=== PATIENT | male | born 1940 | race Caucasian/White ===

== ENCOUNTER 2017-12-08 03:37 | Inpatient (IN) | payer MEDICARE, SELFPAY ==
[2017-12-08] VITALS (20 sets, daily range): BP systolic 119–170; BP diastolic 55–111; PULSE 41–84; RESP 15–27; TEMP 36.6–37.2; O2SAT 92–96; BMI 30.5; BMI 30.6; BMI 29.5
--- NOTE | 2017-12-08 03:51 | EKG12_ITS ---
Test Reason : CP Blood Pressure : / mmHG Vent. Rate : 058 BPM Atrial Rate : 052 BPM P-R Int : 000 ms QRS Dur : 136 ms QT Int : 476 ms P-R-T Axes : 000 008 215 degrees QTc Int : 467 ms Atrial fibrillation with slow ventricular response Non-specific intra-ventricular conduction block T wave abnormality, consider lateral ischemia Abnormal ECG Confirmed by JUAN NOWAK, LEONARD ([id number]), sound editor MISAEL HOPE ([id number]) on 12/10/2017 3:19:25 PM Referred By: RANDOLPH Confirmed By:LEONARD MARTINEZ MD
--- NOTE | 2017-12-08 04:00 | RAD_ITS ---
STUDY: X-RAY CHEST REASON FOR EXAM: Male, 77 years old. Chest pain TECHNIQUE: Frontal and lateral views of the chest. COMPARISON: None. FINDINGS: Cardiomegaly. Status post median sternotomy. Calcified aorta. Vascular congestion. No pneumothorax. No pleural effusion. Basilar atelectasis/infiltrate. No focal consolidation. Peribronchial thickening could represent bronchitis. Pulmonary calcified nodule. Likely granuloma. There are diffuse degenerative changes of the visualized thoracic spine. Osteopenia. There is degenerative osteoarthritis of the bilateral shoulders. There is no demonstrated abnormality of the visualized soft tissue structures of the upper abdomen. RAD/Chest PA and Lateral IMPRESSION: Cardiomegaly. Pulmonary vascular congestion/edema. No focal consolidation. Basilar atelectasis/infiltrate. There is areas of peribronchial thickening. This could represent bronchitis in the appropriate clinical setting. Electronically Signed: Ruben Patiño, at 4:18 EDT Tel , Service support ,
[2017-12-08 04:05] LABS: Absolute Lymphocyte Count 2.78 X10^3/ul (0.83-4.51); Basophil# 0.07 X10^3/uL; Basophil% 0.8 % (0-1); Eosinophil# 0.36 X10^3/uL; Eosinophils% 4.2 % (0-5); Hematocrit 41.3 % (40-54); Hemoglobin 14.2 g/dl (13.0-16.5); Lymphocyte # 2.78 X10^3/ul (4.0); Lymphocyte % 32.7 % (19-41); Mean Corp Hgb Conc 34.4 g/gl (32-36); Mean Corpuscular Hgb 30.8 pg (27.0-32.0); Mean Corpuscular Volume 89.6 fL (80-94); Mean Platelet Vol. 10.8 fl (6.2-12.0); Monocyte# 1.26 X10^3/uL; Monocyte% 14.8 % (0-10); Neutrophil # 4.01 X10^3/uL (2.7-7.7); Neutrophil % 47.3 % (47-70); POSITIVE COUNT NO; POSITIVE DIFFERENTIAL NO; POSITIVE MORPHOLOGY NO; Platelet Count 257 K/mm3 (150-450); RBC Distribution Width CV 13.8 % (11.6-14.6); RBC Distribution Width SD 44.6 fl (35.1-43.9); Red Blood Count 4.61 M/mm3 (4.6-6.2); White Blood Count 8.5 K/mm3 (4.4-11.0)
[2017-12-08] MEDS: Ipratropium/Albuterol Sulfate 3 ML AMPUL.NEB INHALATION (04:09)
[2017-12-08] MEDS: Aspirin 81 MG TAB.CHEW 324 MG PO (04:09)
--- NOTE | 2017-12-08 04:19 | ED.RN ---
lab called to report troponin of 0.777, dr. york notified.
[2017-12-08 04:21] LABS: Anion Gap 6 (5-15); BUN 24 mg/dL (7-18); BUN/Creat Ratio 13.5 RATIO (10-20); Calcium,Total 8.4 mg/dL (8.5-10.1); Chloride 101 mmol/L (98-107); Creatinine, Serum 1.78 mg/dL (0.70-1.30); EST Glomerular Filtration Rate 40 mL/min (>60); Est Glom Filt Rate - Afr Amer 48 mL/min (>60); Estimated Creatinine Clearance 32.49 ml/min; Glucose 288 mg/dL (74-106); Potassium 4.7 mmol/L (3.5-5.1); Sodium Level 135 mmol/L (136-145)
[2017-12-08 04:22] LABS: International Normalized Ratio 1.9; Prothrombin Time (Protime)PT. 22.2 SECONDS (11.7-14.9)
[2017-12-08 04:35] LABS: BNP,B-Type NATRIURETIC PEPTIDE 923.7 pg/mL (0-100)
--- NOTE | 2017-12-08 04:38 | ED.RN ---
re-assessed pt and pt is pain free at this time.
[2017-12-08] MEDS: Furosemide 20 MG/2 ML VIAL IV (04:41)
--- NOTE | 2017-12-08 04:43 | ED.VISSUMM ---
- ER Visit Summary Date of Service: 12/08/17 Chief Complaint: [] Chest pain History of Present Illness: The patient is a 77 M complaining of chest pain started 30 minutes ago at rest. He was laying down trying to sleep and could not. He has a heaviness in his substernal region. Current severity is mild. He has been having some coughing and hard breathing over the last week. Last couple days he has had sinus congestion. He is on Coumadin for history of A. fib. Has a history of coronary artery disease status post CABG 20 years ago. He does not have a barrel filler. He takes a full aspirin and Coumadin daily. He has diabetes as well. Physical Examination: Vital signs reviewed General: Well-nourished well-developed Head: Normocephalic atraumatic Eyes: Pupils equal round and reactive to light extraocular movements intact ENT: TMs clear no hemotympanum no trauma Neck: Nontender full range of motion Cardiovascular: Irregular rhythm with normal rate no murmurs normal S1-S2 Respiratory: Mild tachypnea. Mild wheezing in the bases bilateral no rales or rhonchi. Chest nontender Abdomen: Soft nontender nondistended normal bowel sounds no masses Back: Nontender no CVA tenderness Extremities: Nontender active range of motion ?4 extremities no trauma Skin: Normal color no trauma Neuro alert oriented cranial nerves II through XII intact normal strength sensation reflexes Test Results: [] Emergency Department Course and Treatment: [] EKG shows atrial fibrillation with a rate of 58. ST depression V5 V6 T wave inversion in lead I. No STEMI. CBC normal. Chemistries normal except sodium 135 creatinine 1.78 glucose 288. Patient has chronic diabetes with hyperglycemia tonight. Troponin 0 0.77. This is elevated from previous normal in the past. BNP 923. Chest x-ray shows mild vascular congestion with peribronchial thickening. INR is 1.9. Patient given oral aspirin placed on nasal cannula oxygen. Given sublingual nitroglycerin with complete resolution of his chest discomfort. Given IV Lasix 20 mg IV for his mild CHF. Blood pressure down to 145/70 after nitro. Discussed with the barrel filler Dr. Melendez because the hospitalist. Given the fact that the patient's INR is 1.9 we will hold off on using heparin per cardiology if the patient is pain-free which he is. Be admitted and seen by cardiology on the floors. At this time I think he had a acute bronchitis that likely caused him to have some cardiac complications Treatment Plan: [] Disposition: [] Impression: [] Non-ST elevation myocardial infarction CHF secondary to non-ST elevation myocardial infarction Chronic renal insufficiency Acute bronchitis Diabetes with hyperglycemia Critical care time 74 minutes This note was generated with [employer] dictation software. It may contain incorrect words, spelling, and punctuation that were not noted in review of the chart prior to signing ED Disposition - Plan for ED Patient: Chief Complaint: Chest Pain Referrals: Kyle Silva Chi, MD [Primary Care Provider] -
--- NOTE | 2017-12-08 04:46 | ED.DCSUM_ITS ---
- ER Visit Summary Date of Service: 12/08/17 Chief Complaint: [] Chest pain History of Present Illness: The patient is a 77 M complaining of chest pain started 30 minutes ago at rest. He was laying down trying to sleep and could not. He has a heaviness in his substernal region. Current severity is mild. He has been having some coughing and hard breathing over the last week. Last couple days he has had sinus congestion. He is on Coumadin for history of A. fib. Has a history of coronary artery disease status post CABG 20 years ago. He does not have a representative. He takes a full aspirin and Coumadin daily. He has diabetes as well. Physical Examination: Vital signs reviewed General: Well-nourished well-developed Head: Normocephalic atraumatic Eyes: Pupils equal round and reactive to light extraocular movements intact ENT: TMs clear no hemotympanum no trauma Neck: Nontender full range of motion Cardiovascular: Irregular rhythm with normal rate no murmurs normal S1-S2 Respiratory: Mild tachypnea. Mild wheezing in the bases bilateral no rales or rhonchi. Chest nontender Abdomen: Soft nontender nondistended normal bowel sounds no masses Back: Nontender no CVA tenderness Extremities: Nontender active range of motion ?4 extremities no trauma Skin: Normal color no trauma Neuro alert oriented cranial nerves II through XII intact normal strength sensation reflexes Test Results: [] Emergency Department Course and Treatment: [] EKG shows atrial fibrillation with a rate of 58. ST depression V5 V6 T wave inversion in lead I. No STEMI. CBC normal. Chemistries normal except sodium 135 creatinine 1.78 glucose 288. Patient has chronic diabetes with hyperglycemia tonight. Troponin 0 0.77. This is elevated from previous normal in the past. BNP 923. Chest x-ray shows mild vascular congestion with peribronchial thickening. INR is 1.9. Patient given oral aspirin placed on nasal cannula oxygen. Given sublingual nitroglycerin with complete resolution of his chest discomfort. Given IV Lasix 20 mg IV for his mild CHF. Blood pressure down to 145/70 after nitro. Discussed with the representative Dr. Melendez because the hospitalist. Given the fact that the patient's INR is 1.9 we will hold off on using heparin per cardiology if the patient is pain-free which he is. Be admitted and seen by cardiology on the floors. At this time I think he had a acute bronchitis that likely caused him to have some cardiac complications Treatment Plan: [] Disposition: [] Impression: [] Non-ST elevation myocardial infarction CHF secondary to non-ST elevation myocardial infarction Chronic renal insufficiency Acute bronchitis Diabetes with hyperglycemia Critical care time 74 minutes This note was generated with [employer] dictation software. It may contain incorrect words, spelling, and punctuation that were not noted in review of the chart prior to signing ED Disposition - Plan for ED Patient: Chief Complaint: Chest Pain Referrals: Kyle Silva Chi, MD [Primary Care Provider] -
--- NOTE | 2017-12-08 04:46 | HP.PCM_ITS ---
Problem List (1) Chest pain Status: Acute History of Present Illness Date of Admission: 12/08/17 Chief Complaint: chest pain The patient is a 77 year old M with past medical history of hypertension, coronary artery disease status post stents and CABG 20 years ago, hyperlipidemia, diabetes mellitus and Afib, on coumadin. He was admitted on 12/08/2017 with a complaint of chest pain which started around 30 minutes prior to his admission. Pain was pressure-like, and radiated to the epigastrium and substernal area, with no aggravating or relieving factors. Chest pain had resolved at time of review in the ED. He also had some associated cough which is nonproductive and shortness of breath over the last week. He denied any orthopnea or dyspnea and denied any lower extremity swelling. In the ED, he was found to have blood pressure of 170/111 and was breathing at 23/min. He was saturating 94% on 3 L of oxygen. Labs were significant for troponin of 0.777 and BNP of 93.7 with creatinine 1.78 and sodium of 135. CBC was unremarkable. Chest x-ray showed cardiomegaly and pulmonary vascular congestion with bibasilar atelectasis versus infiltrate. Also had peribronchial thickening which could represent bronchitis. And pulmonary calcified nodule likely granuloma. He has been admitted to be managed for CHF exacerbation and NSTEMI. [] Past Medical History Past Medical History (Chronic Problems): Chronic Problems Hypothyroidism (Chronic) Afib (Chronic) HTN (hypertension) (Chronic) Hx of CABG (Chronic) DM2 (diabetes mellitus, type 2) (Chronic) CAD (coronary artery disease) (Chronic) Allergies simvastatin Adverse Reaction (Verified 12/08/17 03:41) MUSCLE ACHES PATIENT REPORTED IN ED THAT PATIENT EXPERIENCED MUSCLE PAIN ON SIMVASTATIN Home Medications: Ambulatory Orders Medication Instructions Recorded Atenolol 100 mg PO BID 09/19/13 Levothyroxine 50 mcg PO DAILY 09/19/13 Lisinopril 40 mg PO BID 09/19/13 Vitamin D 2,000 units PO DAILY 09/19/13 Warfarin 4 mg PO DAILY 09/19/13 Aspirin 325 mg PO DAILY@0800 12/08/17 Insulin Aspart [Novolog Flexpen] 15 unit SQ TIDCM 12/08/17 Lantus SoloStar Pen 40 units SQ DAILY 12/08/17 Surgical History: coronary bypass surgery Psychiatric History: No pertinent psych hx Lives: Spouse/ Significant Other Smoking Status: Never smoker Alcohol: None Drugs: None - *Family History Paternal History Items: No pertinent history Review of Systems Constitutional: Denies: Chills, Fever, Night Sweats, Weight Change HEENT: Denies: Head Aches, Sinus Congestion, Sinus Drainage Cardiovascular: Reports: Chest Pain, Chest Pressure. Denies: Chest Tightness, Edema, Heaviness, Light Headedness, Orthopnea, Palpitations, Paroxysmal Noc. Dyspnea, Syncope Respiratory: Reports: Cough, Shortness of Breath, Shortness of breath upon exertion, Wheezing. Denies: Hemoptysis, Pleuritic Pain, Shortness of breath at rest Gastrointestinal: Denies: Abdominal Pain, Diarrhea, Nausea, Vomiting Genitourinary: Denies: Dysuria Musculoskeletal: Denies: Joint Pain, Joint Tenderness Skin: Reports: Dryness Neurological: Denies: Numbness, Tingling, Focal weakness Psychiatric: Denies: Anxiety, Depression, Homicidal Ideations, Suicidal Ideations Hematologic/ Lymphatic: Denies: Easy Bruising, Easy Bleeding VTE Information - Inpt Only VTE Present on Admission: No VTE Mechan Device Prophylaxis: SCD's Patient Problems: Active and Suspected Problems Chest pain (Acute) - Physical Exam General: Alert, Oriented x3, Cooperative, No apparent distress HEENT: Atraumatic, PERRLA, EOMI, Normocephalic Oral: Moist Mucosa Neck: Supple, No JVD, Negative Carotid Bruits Lungs: Diminished, Short of Breath, Wheezes, - - decreased breath sounds bibasally with fine crackles in mid and lower lung [place] Cardiovascular: Normal S1, Normal S2, No murmurs, Irregular Rate - and rhythm Abdomen: Bowel Sounds Present, Soft, Non Tender, Non-Distended, No Hepato- splenomegaly Extremities: No clubbing, No cyanosis, No Calf Tenderness, - - minimal pitting edema in LEs Skin: No rashes, No breakdown Musculoskeletal: No Tenderness to Palpation of Joints or Extremities Lymphatic: No Cervical, Supraclavicular, or Inguinal Adenopathy Neurological: Cranial nerves II-XII grossly intact, Neuro grossly intact, Motor Exam 5/5 strength throughout Psych/Mental Status: Normal Affect, Appropriate, Alert and oriented to time, place, person, mood and affect Vital Signs Temp Pulse Resp BP Pulse Ox 97.9 F 60 25 H 158/93 H 93 10/13/18 03:38 12/08/17 04:28 12/08/17 04:22 12/08/17 04:28 12/08/17 04:22 Oxygen Flow Rate (L/min) 2 Oxygen Delivery Method Nasal Cannula Weight: 195 lb 1.745 oz Body Mass Index (BMI) 30.5 Finger Stick Blood Glucose 27 Laboratory Tests Past 24 Hrs 12/08/17 12/08/17 12/08/17 03:45 03:45 03:45 WBC 8.5 RBC 4.61 Hgb 14.2 Hct 41.3 MCV 89.6 MCH 30.8 MCHC 34.4 RDW 13.8 RDW Differential 44.6 H Plt Count 257 MPV 10.8 Immature Gran % (Auto) 0.200 Neut % (Auto) 47.3 Lymph % (Auto) 32.7 [place] % (Auto) 14.8 H Eos % (Auto) 4.2 Baso % (Auto) 0.8 Absolute Neuts (auto) 4.0 Absolute Lymphs (auto) 2.78 Total Counted Not Reportable PT 22.2 H INR 1.9 Sodium 135 L Potassium 4.7 Chloride 101 Carbon Dioxide 28.0 Anion Gap 6 BUN 24 H Creatinine 1.78 H Estim Creat Clear Calc 32.49 Est GFR (MDRD) Af Amer 48 L Est GFR (MDRD) Non-Af 40 L BUN/Creatinine Ratio 13.5 Glucose 288 H Calcium 8.4 L Troponin I 0.777 H* B-Natriuretic Peptide 12/08/17 03:45 WBC RBC Hgb Hct MCV MCH MCHC RDW RDW Differential Plt Count MPV Immature Gran % (Auto) Neut % (Auto) Lymph % (Auto) [place] % (Auto) Eos % (Auto) Baso % (Auto) Absolute Neuts (auto) Absolute Lymphs (auto) Total Counted PT INR Sodium Potassium Chloride Carbon Dioxide Anion Gap BUN Creatinine Estim Creat Clear Calc Est GFR (MDRD) Af Amer Est GFR (MDRD) Non-Af BUN/Creatinine Ratio Glucose Calcium Troponin I B-Natriuretic Peptide 923.7 H Diagnostic Data Chest X-Ray 12/08/17 04:00 IMPRESSION: Cardiomegaly. Pulmonary vascular congestion/edema. No focal consolidation. Basilar atelectasis/infiltrate. There is areas of peribronchial thickening. This could represent bronchitis in the appropriate clinical setting. Electronically Signed: Ruben Patiño, at 4:18 EDT Tel , Service support , Assessment/Plan All Active Problems Chest pain (Acute) Hypoglycemia (Acute) Acute encephalopathy (Acute) 77-year-old male admitted with history of chest pain which started 30 minutes prior to admission with associated shortness of breath. 1. HFrEF with acute exacerbation * no known history of CHF * 2D echo(2012); EF of 40%, normal LV and RV size. Mild segmental systolic dysfunction, severely enlarged left atrium. RVSP of 25mmHg * admit to PCU with telemetry * BNP was 923 * CXR: pulmonary vascular congestion and cardiomegaly * EKG: Afib with lateral leads T wave inversion * IV lasix 40mg bid * 2D echo * cardiology consult * check TSH 2. NSTEMI * initial troponin is 0.77; will cycle * check lipid panel and A1C * SL nitroglycerin prn; on aspirin 325mg daily * cardiology consult * patient already on coumadin; wont give heparin * 3. Acute hypoxic respiratory failure due to CHF exacerbation * tachypneic, with respiratory rate ~ 25-27 * required 3L of oxygen to maintain saturation of 94% * titrate oxygen to maintain saturation >92% * breathing treatment * 4. Hypertensive urgency * BP is 170/111, and patient is SOB and has chest pain * continue home meds- lisinopril and atenolol * IV hydralazine 10mg q6prn for BP>160/110 * 5. Diabetes mellitus * On Lantus 40 units daily and NovoLog insulin. * Will hold long-acting insulin and start insulin sliding scale as patient is being kept n.p.o. for possible cath by cardiology. * Checks every 6 as patient is n.p.o. * Check A1c * 6. CAD s/p stent x 3 and CABG * CABG and stents done 20 years ago * Does not see a booster operator. On aspirin 325 mg daily * Check lipid panel * 7. Afib * Rate controlled * On atenolol 100 mg twice daily. Does not see a booster operator in A. fib and CAD and managed by his primary care doctor. * On Coumadin 4 mg daily. INR is 1.9. * 8. CKD 3 * Cr is 1.78; baseline ~ 1.6 * will monitor 8. Hyponatremia * Na is 135; likely hypervolemic hypotonic hypernatremia from fluid overload with CHF * will monitor for improvement with diuresis * DVT prophylaxis: on coumadin; SCDs Code status: DNR CCA * Counseled about differences between full code, DNR CCA and DNR CCA. Patient elects to be DNR CCA. Total [id number] time 17 minutes. Code Visit Inpatient E&M: 11955 Init Hosp L3 Procedures: 75520 Advncd Care Plan 30 Min
--- NOTE | 2017-12-08 05:32 | EKG12_ITS ---
Test Reason : ADM EKG Blood Pressure : / mmHG Vent. Rate : 072 BPM Atrial Rate : 079 BPM P-R Int : 000 ms QRS Dur : 136 ms QT Int : 474 ms P-R-T Axes : 000 006 177 degrees QTc Int : 519 ms Atrial fibrillation Non-specific intra-ventricular conduction block Abnormal ECG Confirmed by CUBA NOWAK, JOS ([id number]), web content editor MISAEL HOPE ([id number]) on 12/13/2017 11:41:02 AM Referred By: MANI Confirmed By:JOS BRINK MD
[2017-12-08] MEDS: Insulin Lispro 100 UNIT/ML INSULN.PEN SQ (06:42)
[2017-12-08 07:05] LABS: Bedside Glucose 290 mg/dL (70-110)
[2017-12-08 09:21] LABS: Hemoglobin A1c 9.5 % (4.2-6.3)
[2017-12-08 09:24] LABS: Cholesterol 209 mg/dL (200); High Density Lipoprotein 48 mg/dL; Thyroid Stim Hormone (TSH) 5.78 uIU/mL (0.358-3.74); Triglycerides 99 mg/dL; Very Low Density Lipoprotein 20 mg/dL (5-40)
[2017-12-08] MEDS: Lisinopril 40 MG Tablet PO ×2 (10:10→22:40)
[2017-12-08] MEDS: Furosemide 40 MG/4 ML Vial IV ×2 (10:11→17:14)
[2017-12-08] MEDS: Aspirin 325 MG Tablet PO (10:11)
[2017-12-08] MEDS: Atenolol 100 MG Tablet PO ×2 (10:11→22:40)
[2017-12-08] MEDS: 0.9% NaCl Peripheral Flush Adult/Peds IV ×2 (10:20→17:15)
--- NOTE | 2017-12-08 11:02 | PCM.CONS.C ---
Reason for Consult Date of Consultation: 12/08/17 History of Present Illness: The patient is a 77 year old M past medical history significant for coronary artery disease status post coronary artery bypass graft surgery x4 about 20 years ago. He also has history of diabetes mellitus and chronic renal insufficiency. Patient has been admitted with complaints of chest pain. However the patient says that his primary complaint was dyspnea that started early this morning. Woke him up from sleep. According to him, he felt that the chest discomfort was only with deep breathing. No diaphoresis. No orthopnea. His any ankle edema. Patient denies any recent history of exertional or rest angina. [] Past Medical History Allergies/Adverse Reactions: Allergies simvastatin Adverse Reaction (Verified 12/08/17 03:41) MUSCLE ACHES PATIENT REPORTED IN ED THAT PATIENT EXPERIENCED MUSCLE PAIN ON SIMVASTATIN Home Medications: Ambulatory Orders Medication Instructions Recorded Atenolol 100 mg PO BID 09/19/13 Levothyroxine 50 mcg PO DAILY 09/19/13 Lisinopril 40 mg PO BID 09/19/13 Vitamin D 2,000 units PO DAILY 09/19/13 Warfarin 4 mg PO DAILY 09/19/13 Aspirin 325 mg PO DAILY@0800 12/08/17 Insulin Aspart [Novolog Flexpen] 15 unit SQ TIDCM 12/08/17 Lantus SoloStar Pen 40 units SQ DAILY 12/08/17 Past Medical History (Chronic Problems): Chronic Problems Hypothyroidism (Chronic) Afib (Chronic) HTN (hypertension) (Chronic) Hx of CABG (Chronic) DM2 (diabetes mellitus, type 2) (Chronic) CAD (coronary artery disease) (Chronic) Surgical History: coronary bypass surgery Psychiatric History: No pertinent psych hx - *Family History Paternal History Items: No pertinent history Lives: Spouse/ Significant Other Smoking Status: Never smoker Alcohol: None Drugs: None Review of Systems - Review of Systems General: Denies: Fever, Fatigue, Chills Cardiovascular: Reports: Shortness of Breath at Rest. Denies: Orthopnea, Peripheral Edema Respiratory: Denies: Cough Gastrointestinal: Denies: Abdominal Discomfort, Jaundice, Nausea, Emesis, Melena Neurological: Reports: History of CVA Subjectve: Comfortable. Lying flat in the bed. Objective: Vital Signs Temp Pulse Resp BP Pulse Ox 98.8 F 58 L 16 137/84 H 94 12/08/17 09:50 12/08/17 09:50 12/08/17 09:50 12/08/17 09:50 12/08/17 09:50 Oxygen Flow Rate (L/min) 2 Oxygen Delivery Method Nasal Cannula Weight: 85.6 kg Body Mass Index (BMI) 29.5 Finger Stick Blood Glucose 27 General: Awake, Alert, Oriented x 3, No Acute Distress HEENT: Atraumatic, Normocephalic Neck: - - Mild jugular venous distention Lungs: Clear to auscultation Cardiovascular: Irregular Rhythm, Normal S1, Normal S2 Vascular: No Carotid Bruits Abdomen: Bowel Sounds Present, Soft Extremities: Bilateral Edema +1 Neurological: No Focal Motor or Sensory Deficit Psych/Mental Status: Appropriate 12/08/17 03:45: WBC 8.5, RBC 4.61, Hgb 14.2, Hct 41.3, MCV 89.6, MCH 30.8, MCHC 34.4, RDW 13.8, RDW Differential 44.6 H, Plt Count 257, MPV 10.8, Immature Gran % (Auto) 0.200, Neut % (Auto) 47.3, Lymph % (Auto) 32.7, [place] % (Auto) 14.8 H, Eos % (Auto) 4.2, Baso % (Auto) 0.8, Absolute Neuts (auto) 4.0, Total Counted Not Reportable 12/08/17 03:45: PT 22.2 H, INR 1.9 12/08/17 03:45: Sodium 135 L, Potassium 4.7, Chloride 101, Carbon Dioxide 28.0, Anion Gap 6, BUN 24 H, Creatinine 1.78 H, Est GFR (MDRD) Af Amer 48 L, Est GFR (MDRD) Non-Af 40 L, BUN/Creatinine Ratio 13.5, Glucose 288 H, Calcium 8.4 L, Troponin I 0.777 H* 12/08/17 03:45: B-Natriuretic Peptide 923.7 H 12/08/17 06:49: Troponin I 0.766 H* 12/08/17 06:49: Triglycerides 99, Cholesterol 209 H, LDL Cholesterol 141 H, VLDL Cholesterol 20, HDL Cholesterol 48 12/08/17 06:49: Hemoglobin A1c 9.5 H 12/08/17 09:52: Troponin I 1.220 H* Rhythm: Atrial fibrillation EKG: Atrial fibrillation. Left bundle branch block ECHO: Pending Stress Test: Cardiac Cath: PCI: CT Surgery: Holter monitor: EPS: PPM: CXR: Chest CT Scan: Assessment/Plan 1. Non-ST elevation myocardial infarction. Started on aspirin. Continue. Check 2D echocardiogram to assess LV function. Further treatment options discussed with patient. Invasive management strategy with cardiac catheterization, coronary angiography and possible revascularization versus medical treatment and risk assessment with stress test were discussed. Risks benefits explained. He understands these and wishes noninvasive treatment strategy for now in view of his underlying chronic renal insufficiency. We will schedule a pharmacological stress test for him on Sunday. Start on nitrates. 2. Atrial fibrillation. History of chronic atrial fibrillation with history of CVA in the past. Continue warfarin. Target INR between 2-3. 3. Chronic renal insufficiency 4. Diabetes mellitus. 5. Hypertension 6. History of CAD status post CABG. See #1 above 7. History of cardiomyopathy with ejection fraction 40% on echocardiogram from 2012. Will repeat echo
--- NOTE | 2017-12-08 11:07 | PN_ITS ---
Patient Problems: Active and Suspected Problems Chest pain (Acute) Subjective: Patient was seen and examined. He feels fairly well. Denies any worsening SOB or chest pain this morning. Vitals/I&O's: Vital Signs Temp Pulse Resp BP Pulse Ox 98.8 F 58 L 16 137/84 H 94 12/08/17 09:50 12/08/17 09:50 12/08/17 09:50 12/08/17 09:50 12/08/17 09:50 Oxygen Flow Rate (L/min) 2 Oxygen Delivery Method Nasal Cannula Weight: 85.6 kg Body Mass Index (BMI) 29.5 Finger Stick Blood Glucose 27 General: Alert, Oriented x3, Cooperative, No apparent distress, - - appears tired, chronically ill-looking HEENT: Atraumatic, PERRLA, EOMI, Normocephalic Oral: Moist Mucosa Neck: Supple, No JVD, Negative Carotid Bruits Lungs: Clear to auscultation, Normal air movement Cardiovascular: Regular Rhythm, Normal S1, Normal S2, No murmurs, Irregular Rate Abdomen: Bowel Sounds Present, Soft, Non Tender, Non-Distended, No Hepato- splenomegaly Extremities: No edema Skin: No rashes, No breakdown Musculoskeletal: No Tenderness to Palpation of Joints or Extremities Lymphatic: No Cervical, Supraclavicular, or Inguinal Adenopathy Neurological: Cranial nerves II-XII grossly intact, Neuro grossly intact Psych/Mental Status: Normal Affect, Appropriate Laboratory Results 12/08/17 03:45: WBC 8.5, RBC 4.61, Hgb 14.2, Hct 41.3, MCV 89.6, MCH 30.8, MCHC 34.4, RDW 13.8, RDW Differential 44.6 H, Plt Count 257, MPV 10.8, Immature Gran % (Auto) 0.200, Neut % (Auto) 47.3, Lymph % (Auto) 32.7, [place] % (Auto) 14.8 H, Eos % (Auto) 4.2, Baso % (Auto) 0.8, Absolute Neuts (auto) 4.0, Absolute Lymphs (auto) 2.78, Total Counted Not Reportable 12/08/17 03:45: PT 22.2 H, INR 1.9 12/08/17 03:45: Sodium 135 L, Potassium 4.7, Chloride 101, Carbon Dioxide 28.0, Anion Gap 6, BUN 24 H, Creatinine 1.78 H, Estim Creat Clear Calc 32.49, Est GFR (MDRD) Af Amer 48 L, Est GFR (MDRD) Non-Af 40 L, BUN/Creatinine Ratio 13.5, Glucose 288 H, Calcium 8.4 L, Troponin I 0.777 H* 12/08/17 03:45: B-Natriuretic Peptide 923.7 H 12/08/17 06:35: POC Glucose 290 H 12/08/17 06:49: Troponin I 0.766 H* 12/08/17 06:49: Triglycerides 99, Cholesterol 209 H, LDL Cholesterol 141 H, VLDL Cholesterol 20, HDL Cholesterol 48, TSH 5.78 H 12/08/17 06:49: Hemoglobin A1c 9.5 H 12/08/17 09:52: Troponin I 1.220 H* Current Medications Aspirin (Aspirin) 325 mg PO DAILY@0800 [facility] Last Admin: 12/08/17 10:11 Dose: 325 mg Atenolol (Tenormin (Beta Vitor)) 100 mg PO BID [facility] Last Admin: 12/08/17 10:11 Dose: 100 mg Cholecalciferol (Vitamin D) 2,000 unit PO DAILY [facility] Last Admin: 12/08/17 10:10 Dose: 2,000 unit Dextrose (D50w Syringe) 0 gm IV X1 PRN; Protocol PRN Reason: Hypoglycemia Furosemide (Lasix) 40 mg IV BID@1000,1800 [facility] Last Admin: 12/08/17 10:11 Dose: 40 mg Glucagon () 1 mg IM .X1 PRN PRN Reason: Hypoglycemia Hydralazine HCl (Apresoline Iv) 10 mg IV Q6H PRN PRN PRN Reason: BLOOD PRESSURE ELEVATION Insulin Human Lispro (Humalog Kwikpen (Bkc)) 0 unit SQ Q6 [facility]; Protocol Last Admin: 12/08/17 06:42 Dose: 6 u Levothyroxine Sodium (Synthroid) 50 mcg PO DAILY@0600 [facility] Lisinopril (Zestril) 40 mg PO BID [facility] Last Admin: 12/08/17 10:10 Dose: 40 mg Magnesium Hydroxide (Milk Of Magnesia) 30 ml PO DAILY PRN PRN PRN Reason: Constipation Nitroglycerin (Nitrostat) 0.4 mg SUBLINGUAL Q5M PRN PRN Reason: CARDIAC/CHEST PAIN Sodium Chloride () 5 - 30 ml IV UD PRN PRN Reason: SALINE FLUSH Last Admin: 12/08/17 10:20 Dose: 20 ml Warfarin Sodium (Coumadin (Pbkc)) 4 mg PO DAILY@1700 [facility] Medical Necessity - Tobacco Use Smoking Status: Never smoker Assessment/Plan All Active Problems Chest pain (Acute) Hypoglycemia (Acute) Acute encephalopathy (Acute) 77-year-old male with past medical history of ischemic cardiomyopathy, chronic atrial fibrillation, on Coumadin, comes in with complaints of chest pain 1. Acute NSTEMI, NICO score 6, troponin elevated, EKG shows atrial fibrillation, discussed with cardiology, patient will undergo noninvasive testing on Sunday Continue on aspirin, Coumadin, beta-vitor, isosorbide, lisinopril, continue to monitor on telemetry 2. Acute on chronic systolic CHF exacerbation, patient is improving on Lasix, 2D echo done shows EF of 35%, severe inferior and apical hypokinesis, RVSP is 50, grade 2 mild mitral and tricuspid regurgitation, continue Lasix 40 mg IV twice daily, strict I's and O's, CHF protocol 3. Chronic atrial fibrillation, rate controlled, on Coumadin, continue with Coumadin, monitor INR, current INR is 1.9 4. Elevated creatinine, CKD stage III, creatinine elevated to 1.78 from 1.60, continue to monitor 5. Acute respiratory insufficiency secondary to acute CHF exacerbation, resolved, patient seen lying flat in bed, off oxygen, will continue to monitor 6. Accelerated hypertension/hypertensive emergency, in light of elevated blood pressure on admission as well as acute NSTEMI, blood pressure better controlled, continue to monitor 7. Type II DM, BS are controlled, home Lantus on hold, on insulin sliding scale with Accu-Cheks, will slowly resume long-acting insulin if blood sugars continue to be uncontrolled 8. CAD status post stents, CABG, on aspirin, not on statin(allergy to simvastatin) 9. Elevated TSH, will check free T4 and free T3, will need to be followed up in the outpatient 10. DVT prophylaxis- patient on coumadin Code Visit Inpatient E&M: 88696 Subs Hosp L2
--- NOTE | 2017-12-08 11:43 | CASEMGMT ---
VIVIAN MANE assessment: Face to Face with patient for initial transition planning/care coordination assessment. VIVIAN MANE introduced self and role at [facility], pt voices understanding and consents to assessment at this time. Pt is lying in bed in no distress at this time. Pt is A/O x4 at this time and answers all questions appropriately at this time. Pt's is at bedside during assessment. Care providers, pharmacy, and demographics verified/updated at this time. PCP: Ricardo Specialists: Pt states currently has no specialists at this time. [facility]erred [facility]acy: [facility] Insurance: [employer]Life Prescription Benefit: [employer]Life Living Will/HPOA: Pt states does not have LW/HPOA and states no interest in info at this time. LNOK: Magaly Lara, ; Jackie Lara, daughter Living Arrangements: Pt states lives with and states no concerns at home at this time. Pt states just 2 steps into home and states no concerns. Transportation: Pt states drives self and states no transportation concerns at this time. DME/HHC: Pt states has the following DME: cane, crutches, and walker. Pt states no need for any further DME at this time. Pt states has never had HHC or been to a SNF in the past. Pt states no concerns with going home at time of discharge. Pt states no further concerns/needs at this time. Advised pt to ask for CM if any further questions/concerns/needs arise, voices understanding. Plan: [place] VIVIAN MANE
[2017-12-08 12:00] LABS: Bedside Glucose 140 mg/dL (70-110)
[2017-12-08] MEDS: Isosorbide Mononitrate 60 MG Tablet PO (14:03)
[2017-12-08 15:31] LABS: Free T3 2.3 pg/mL (2.18-3.98); T4 Free Direct 1.24 ng/dL (0.76-1.46)
[2017-12-08 17:35] LABS: Bedside Glucose 131 mg/dL (70-110)
--- NOTE | 2017-12-08 20:00 | ECHOD_ITS ---
Reason For Study: CHF Procedure This was a 2D Doppler, Color Flow transthoracic echocardiogram. Exam performed portable in patient room. Left Ventricle Normal LV size. Mild concentric left ventricular hypertrophy. The estimated ejection fraction is 35 %. Right Ventricle Mildly dilated right ventricle. Mild global right ventricular systolic dysfunction. Atria The left atrium is mildly enlarged. The right atrium is moderately enlarged. Mitral Valve Mild-Moderate (1-2+) mitral valve insufficiency. Tricuspid Valve Mild to moderate (1-2+) tricuspid valve insufficiency. Right ventricular systolic pressure estimated to be 50 mmHg. Aortic Valve Aortic sclerosis, no stenosis. Mild (1+) aortic valve insufficiency. Great Vessels Normal aortic root. The inferior vena cava is dilated. Pericardium/Pleural No pericardial effusion. MMode/2D Measurements & Calculations LVIDd: 5.1 cm IVSd: 1.2 cm LVOT diam: 2.1 cm LVIDs: 4.0 cm LVPWd: 1.4 cm LVOT area: 3.4 cm2 FS: 20.7 % Ao root diam: 3.5 cm LAV(MOD-bp): 78.7 ml LVAd ap4: 36.2 cm2 ACS: 1.8 cm LAV(MOD-bp) Indexed: 39.3 ml/m2 EDV(MOD-sp4): 134.4 ml LA dimension: 4.9 cm LAV(MOD-sp2): 84.6 ml EDV(sp4-el): 140.5 ml LAV(MOD-sp4): 69.7 ml LVAs ap4: 29.3 cm2 ESV(MOD-sp4): 95.3 ml ESV(sp4-el): 94.9 ml EF(MOD-sp4): 29.1 % EF(sp4-el): 32.5 % SV(MOD-sp4): 39.1 ml SV(sp4-el): 45.7 ml Aortic Valve Planimetry: 2.0 cm2 LA A4 area: 25.3 cm2 RA A4 area: 24.7 cm2 Time Measurements MV dec time: 0.18 sec Doppler Measurements & Calculations MV E max danuta: 67.7 cm/sec MV V2 max: 118.8 cm/sec MV P1/2t max danuta: 120.1 cm/sec MV max P.6 mmHg MV P1/2t: 74.6 msec MV V2 mean: 66.3 cm/sec MV dec slope: 471.1 cm/sec2 MV mean P.1 mmHg MVA(P1/2t): 2.9 cm2 MV V2 VTI: 24.4 cm MVA(VTI): 2.1 cm2 Ao V2 max: 129.1 cm/sec LV V1 max: 75.9 cm/sec MR max danuta: 471.9 cm/sec Ao max P.7 mmHg LV V1 max P.3 mmHg MR max P.1 mmHg Ao V2 mean: 83.9 cm/sec LV V1 mean P.99 mmHg MR mean danuta: 359.1 cm/sec Ao mean P.2 mmHg LV V1 mean: 45.5 cm/sec MR mean P.6 mmHg Ao V2 VTI: 26.2 cm LV V1 VTI: 14.7 cm MR VTI: 168.4 cm LAUREEN(I,D): 1.9 cm2 LAUREEN(V,D): 2.0 cm2 SV(LVOT): 50.0 ml PA V2 max: 70.0 cm/sec TR max danuta: 323.2 cm/sec TR max P.8 mmHg Interpretation Summary Mild concentric left ventricular hypertrophy. The estimated ejection fraction is 35 %.. Severe inferior and apical hypokinesis Mildly dilated right ventricle. Mild global right ventricular systolic dysfunction. The left atrium is mildly enlarged. The right atrium is moderately enlarged. Mild-Moderate (1-2+) mitral valve insufficiency. Mild to moderate (1-2+) tricuspid valve insufficiency. Right ventricular systolic pressure estimated to be 50 mmHg. Moderate pulmonary hypertenion Ordering Physician: Phylicia Rowan Referring Physician: Kyle Silva Chi Performed By: Richard Hall RCS
[2017-12-09] VITALS (11 sets, daily range): BP systolic 114–128; BP diastolic 55–73; PULSE 51–75; RESP 15–18; TEMP 36.6–37.3; O2SAT 91–96
[2017-12-09] MEDS: Insulin Lispro 100 UNIT/ML INSULN.PEN SQ ×5 (00:14→22:30)
[2017-12-09 00:21] LABS: Bedside Glucose 282 mg/dL (70-110)
[2017-12-09 06:00] LABS: Absolute Lymphocyte Count 2.02 X10^3/ul (0.83-4.51); Absolute Neutrophil Count 3.5 X10^3/uL (2.0-7.7); Basophil# 0.05 X10^3/uL; Basophil% 0.8 % (0-1); Eosinophil# 0.25 X10^3/uL; Eosinophils% 3.8 % (0-5); Hematocrit 38.9 % (40-54); Hemoglobin 13.1 g/dl (13.0-16.5); Lymphocyte # 2.02 X10^3/ul (4.0); Lymphocyte % 30.7 % (19-41); Mean Corp Hgb Conc 33.7 g/gl (32-36); Mean Corpuscular Hgb 30.1 pg (27.0-32.0); Mean Corpuscular Volume 89.4 fL (80-94); Mean Platelet Vol. 10.5 fl (6.2-12.0); Monocyte# 0.76 X10^3/uL; Monocyte% 11.6 % (0-10); Neutrophil # 3.49 X10^3/uL (2.7-7.7); Neutrophil % 53.1 % (47-70); Platelet Count 214 K/mm3 (150-450); RBC Distribution Width CV 13.7 % (11.6-14.6); Red Blood Count 4.35 M/mm3 (4.6-6.2); White Blood Count 6.6 K/mm3 (4.4-11.0)
[2017-12-09 06:07] LABS: International Normalized Ratio 2.4; Prothrombin Time (Protime)PT. 26.4 SECONDS (11.7-14.9)
[2017-12-09 06:08] LABS: POSITIVE COUNT NO; POSITIVE DIFFERENTIAL NO; POSITIVE MORPHOLOGY NO
[2017-12-09 06:17] LABS: Anion Gap 6 (5-15); BUN 24 mg/dL (7-18); BUN/Creat Ratio 12.6 RATIO (10-20); Calcium,Total 8.3 mg/dL (8.5-10.1); Chloride 101 mmol/L (98-107); Creatinine, Serum 1.91 mg/dL (0.70-1.30); EST Glomerular Filtration Rate 36 mL/min (>60); Est Glom Filt Rate - Afr Amer 44 mL/min (>60); Estimated Creatinine Clearance 30.28 ml/min; Glucose 209 mg/dL (74-106); Magnesium 1.9 mg/dL (1.6-2.6); Potassium 3.9 mmol/L (3.5-5.1); Sodium Level 138 mmol/L (136-145)
[2017-12-09] MEDS: Levothyroxine 50 MCG Tablet PO (06:56)
[2017-12-09 07:06] LABS: Bedside Glucose 213 mg/dL (70-110)
[2017-12-09] MEDS: Aspirin E.C. 81 MG Tablet PO (07:58)
[2017-12-09] MEDS: 0.9% NaCl Peripheral Flush Adult/Peds IV (10:59)
[2017-12-09] MEDS: Lisinopril 40 MG Tablet PO ×2 (10:59→22:30)
[2017-12-09] MEDS: Atenolol 100 MG Tablet PO ×2 (10:59→22:30)
[2017-12-09] MEDS: Isosorbide Mononitrate 60 MG Tablet PO (10:59)
[2017-12-09] MEDS: Furosemide 20 MG/2 ML VIAL IV (11:01)
[2017-12-09 11:21] LABS: Bedside Glucose 254 mg/dL (70-110)
--- NOTE | 2017-12-09 12:15 | PN.CARD_ITS ---
Subjectve: No complaints. Objective: Vital Signs Temp Pulse Resp BP Pulse Ox 98.4 F 52 L 16 121/55 H 96 12/09/17 11:04 12/09/17 11:32 12/09/17 11:04 12/09/17 11:04 12/09/17 11:04 Oxygen Flow Rate (L/min) 2 Oxygen Delivery Method Nasal Cannula Weight: 83.5 kg Body Mass Index (BMI) 29.5 Finger Stick Blood Glucose 27 Intake and Output for Last 24 Hours 12/07/17 12/08/17 12/09/17 23:59 23:59 23:59 Intake Total 770 / 770 300 / 300 Output Total 850 / 850 Balance 770 / 770 -550 / -550 General: Awake, Alert, Oriented x 3, - - No distress. Lying flat in the bed. HEENT: Atraumatic Oral: Moist Mucosa Lungs: Clear to auscultation Cardiovascular: Irregular Rhythm, Normal S1, Normal S2 Abdomen: Bowel Sounds Present, Soft Extremities: No edema 12/08/17 03:45: Sodium 135 L, Potassium 4.7, Chloride 101, Carbon Dioxide 28.0, Anion Gap 6, BUN 24 H, Creatinine 1.78 H, Est GFR (MDRD) Af Amer 48 L, Est GFR (MDRD) Non-Af 40 L, BUN/Creatinine Ratio 13.5, Glucose 288 H, Calcium 8.4 L, Troponin I 0.777 H* 12/09/17 05:12: WBC 6.6, RBC 4.35 L, Hgb 13.1, Hct 38.9 L, MCV 89.4, MCH 30.1, MCHC 33.7, RDW 13.7, RDW Differential 45.0 H, Plt Count 214, MPV 10.5, Immature Gran % (Auto) 0.000, Neut % (Auto) 53.1, Lymph % (Auto) 30.7, [place] % (Auto) 11.6 H, Eos % (Auto) 3.8, Baso % (Auto) 0.8, Absolute Neuts (auto) 3.5, Total Counted Not Reportable 12/09/17 05:12: PT 26.4 H, INR 2.4 12/09/17 05:12: Sodium 138, Potassium 3.9, Chloride 101, Carbon Dioxide 31.0, Anion Gap 6, BUN 24 H, Creatinine 1.91 H, Est GFR (MDRD) Af Amer 44 L, Est GFR (MDRD) Non-Af 36 L, BUN/Creatinine Ratio 12.6, Glucose 209 H, Calcium 8.3 L, Magnesium 1.9 Rhythm: Atrial fibrillation with controlled ventricular response EKG: ECHO: Stress Test: Cardiac Cath: PCI: CT Surgery: Holter monitor: EPS: PPM: CXR: Chest CT Scan: Medical Necessity - Tobacco Use Smoking Status: Never smoker Assessment/Plan 1. Non-ST elevation myocardial infarction. For stress test tomorrow for risk evaluation. Asymptomatic 2. Atrial fibrillation. History of chronic atrial fibrillation with history of CVA in the past. Continue warfarin. Target INR between 2-3. 3. Chronic renal insufficiency. Creatinine mildly elevated. Stop IV Lasix. Change to p.o. once daily monitor creatinine 4. Diabetes mellitus. 5. Hypertension 6. History of CAD status post CABG. See #1 above 7. Cardiomyopathy. Ejection fraction 35%. It was 40% as reported on echocardiogram from 2013. Continue medications
--- NOTE | 2017-12-09 16:17 | PCM.PN.HOSP ---
Patient Problems: Active and Suspected Problems Chest pain (Acute) Subjective: Patient was seen and examined. He feels better. Denies chest pain, dizziness, palpitations. No acute events on telemetry. Objective: General: Alert, Oriented x3, Cooperative, No apparent distress, - - appears tired, chronically ill-looking HEENT: Atraumatic, PERRLA, EOMI, Normocephalic Oral: Moist Mucosa Neck: Supple, No JVD, Negative Carotid Bruits Lungs: Clear to auscultation, Normal air movement Cardiovascular: Regular Rhythm, Normal S1, Normal S2, No murmurs, Irregular Rate Abdomen: Bowel Sounds Present, Soft, Non Tender, Non-Distended, No Hepato-splenomegaly Extremities: No edema Skin: No rashes, No breakdown Musculoskeletal: No Tenderness to Palpation of Joints or Extremities Lymphatic: No Cervical, Supraclavicular, or Inguinal Adenopathy Neurological: Cranial nerves II-XII grossly intact, Neuro grossly intact Psych/Mental Status: Normal Affect, Appropriate Vitals/I&O's: Vital Signs Temp Pulse Resp BP Pulse Ox 98.4 F 52 L 16 121/55 H 96 12/09/17 11:04 12/09/17 11:32 12/09/17 11:04 12/09/17 11:04 12/09/17 11:04 Oxygen Flow Rate (L/min) 2 Oxygen Delivery Method Nasal Cannula Weight: 83.5 kg Body Mass Index (BMI) 29.5 Finger Stick Blood Glucose 27 Intake and Output for Last 24 Hours 12/07/17 12/08/17 12/09/17 23:59 23:59 23:59 Intake Total 770 / 770 715 / 715 Output Total 1550 / 1550 Balance 770 / 770 -835 / -835 Laboratory Results 12/08/17 03:45: Sodium 135 L, Potassium 4.7, Chloride 101, Carbon Dioxide 28.0, Anion Gap 6, BUN 24 H, Creatinine 1.78 H, Estim Creat Clear Calc 32.49, Est GFR (MDRD) Af Amer 48 L, Est GFR (MDRD) Non-Af 40 L, BUN/Creatinine Ratio 13.5, Glucose 288 H, Calcium 8.4 L, Troponin I 0.777 H* 12/08/17 17:14: POC Glucose 131 H 12/09/17 00:12: POC Glucose 282 H 12/09/17 05:12: WBC 6.6, RBC 4.35 L, Hgb 13.1, Hct 38.9 L, MCV 89.4, MCH 30.1, MCHC 33.7, RDW 13.7, RDW Differential 45.0 H, Plt Count 214, MPV 10.5, Immature Gran % (Auto) 0.000, Neut % (Auto) 53.1, Lymph % (Auto) 30.7, [place] % (Auto) 11.6 H, Eos % (Auto) 3.8, Baso % (Auto) 0.8, Absolute Neuts (auto) 3.5, Absolute Lymphs (auto) 2.02, Total Counted Not Reportable 12/09/17 05:12: PT 26.4 H, INR 2.4 12/09/17 05:12: Sodium 138, Potassium 3.9, Chloride 101, Carbon Dioxide 31.0, Anion Gap 6, BUN 24 H, Creatinine 1.91 H, Estim Creat Clear Calc 30.28, Est GFR (MDRD) Af Amer 44 L, Est GFR (MDRD) Non-Af 36 L, BUN/Creatinine Ratio 12.6, Glucose 209 H, Calcium 8.3 L, Magnesium 1.9 12/09/17 06:58: POC Glucose 213 H 12/09/17 11:14: POC Glucose 254 H Current Medications Aspirin (Ecotrin) 81 mg PO DAILY@0800 [facility] Last Admin: 12/09/17 07:58 Dose: 81 mg Atenolol (Tenormin (Beta Vitor)) 100 mg PO BID [facility] Last Admin: 12/09/17 10:59 Dose: 100 mg Cholecalciferol (Vitamin D) 2,000 unit PO DAILY [facility] Last Admin: 12/09/17 10:59 Dose: 2,000 unit Dextrose (D50w Syringe) 0 gm IV X1 PRN; Protocol PRN Reason: Hypoglycemia Furosemide (Lasix) 40 mg PO DAILY [facility] Glucagon () 1 mg IM .X1 PRN PRN Reason: Hypoglycemia Hydralazine HCl (Apresoline Iv) 10 mg IV Q6H PRN PRN PRN Reason: BLOOD PRESSURE ELEVATION Insulin Glargine (Lantus (Bk)) 10 units SC QHS [facility] Insulin Human Lispro (Humalog Kwikpen (Bk)) 0 unit SQ ACHS [facility]; Protocol Last Admin: 12/09/17 11:17 Dose: 4 units Isosorbide Mononitrate (Imdur) 60 mg PO DAILY [facility] Last Admin: 12/09/17 10:59 Dose: 60 mg Levothyroxine Sodium (Synthroid) 50 mcg PO DAILY@0600 [facility] Last Admin: 12/09/17 06:56 Dose: 50 mcg Lisinopril (Zestril) 40 mg PO BID [facility] Last Admin: 12/09/17 10:59 Dose: 40 mg Magnesium Hydroxide (Milk Of Magnesia) 30 ml PO DAILY PRN PRN PRN Reason: Constipation Nitroglycerin (Nitrostat) 0.4 mg SUBLINGUAL Q5M PRN PRN Reason: CARDIAC/CHEST PAIN Sodium Chloride () 5 - 30 ml IV UD PRN PRN Reason: SALINE FLUSH Last Admin: 12/09/17 10:59 Dose: 20 ml Warfarin Sodium (Coumadin (Pbkc)) 4 mg PO DAILY@1700 [facility] Last Admin: 12/08/17 17:14 Dose: 4 mg Medical Necessity - Tobacco Use Smoking Status: Never smoker Assessment/Plan All Active Problems Chest pain (Acute) Hypoglycemia (Acute) Acute encephalopathy (Acute) 77-year-old male with past medical history of ischemic cardiomyopathy, chronic atrial fibrillation, on Coumadin, comes in with complaints of chest pain 1. Acute NSTEMI, NICO score 6, troponin elevated, EKG shows atrial fibrillation, cardiology consulted, pharmacologic stress test planned for on Sunday Continue on aspirin, Coumadin, beta-vitor, isosorbide, lisinopril, continue to monitor on telemetry 2. Acute on chronic systolic CHF exacerbation,improving, 2D echo done shows EF of 35%, severe inferior and apical hypokinesis, RVSP is 50, grade 2 mild mitral and tricuspid regurgitation, creatinine slightly elevated, will continue Lasix 20 mg IV twice daily, continue strict I's and O's and CHF protocol. 3. Chronic atrial fibrillation, rate controlled, on Coumadin, continue with Coumadin, monitor INR, current INR is 2.4 4. Elevated creatinine, CKD stage III, creatinine elevated 1.91, continue to monitor 5. Acute respiratory insufficiency secondary to acute CHF exacerbation, resolved 6. Accelerated hypertension/hypertensive emergency, blood pressure is controlled now, continue to monitor 7. Type II DM, sugars slightly uncontrolled, home Lantus was held, on Accu-Cheks with insulin sliding scale, He was on 40 units of Lantus at home, will slowly resume with 10 units of Lantus at night 8. CAD status post stents, CABG, on aspirin, not on statin(allergy to simvastatin) 9. Elevated TSH, free T4 and free T3 normal, needs to be followed up in the outpatient. 10. DVT prophylaxis- patient on coumadin Code Visit Inpatient E&M: 85438 Subs Hosp L2
--- NOTE | 2017-12-09 16:26 | PN_ITS ---
Patient Problems: Active and Suspected Problems Chest pain (Acute) Subjective: Patient was seen and examined. He feels better. Denies chest pain, dizziness, palpitations. No acute events on telemetry. Objective: General: Alert, Oriented x3, Cooperative, No apparent distress, - - appears tired, chronically ill-looking HEENT: Atraumatic, PERRLA, EOMI, Normocephalic Oral: Moist Mucosa Neck: Supple, No JVD, Negative Carotid Bruits Lungs: Clear to auscultation, Normal air movement Cardiovascular: Regular Rhythm, Normal S1, Normal S2, No murmurs, Irregular Rate Abdomen: Bowel Sounds Present, Soft, Non Tender, Non-Distended, No Hepato- splenomegaly Extremities: No edema Skin: No rashes, No breakdown Musculoskeletal: No Tenderness to Palpation of Joints or Extremities Lymphatic: No Cervical, Supraclavicular, or Inguinal Adenopathy Neurological: Cranial nerves II-XII grossly intact, Neuro grossly intact Psych/Mental Status: Normal Affect, Appropriate Vitals/I&O's: Vital Signs Temp Pulse Resp BP Pulse Ox 98.4 F 52 L 16 121/55 H 96 12/09/17 11:04 12/09/17 11:32 12/09/17 11:04 12/09/17 11:04 12/09/17 11:04 Oxygen Flow Rate (L/min) 2 Oxygen Delivery Method Nasal Cannula Weight: 83.5 kg Body Mass Index (BMI) 29.5 Finger Stick Blood Glucose 27 Intake and Output for Last 24 Hours 12/07/17 12/08/17 12/09/17 23:59 23:59 23:59 Intake Total 770 / 770 715 / 715 Output Total 1550 / 1550 Balance 770 / 770 -835 / -835 Laboratory Results 12/08/17 03:45: Sodium 135 L, Potassium 4.7, Chloride 101, Carbon Dioxide 28.0, Anion Gap 6, BUN 24 H, Creatinine 1.78 H, Estim Creat Clear Calc 32.49, Est GFR (MDRD) Af Amer 48 L, Est GFR (MDRD) Non-Af 40 L, BUN/Creatinine Ratio 13.5, Glucose 288 H, Calcium 8.4 L, Troponin I 0.777 H* 12/08/17 17:14: POC Glucose 131 H 12/09/17 00:12: POC Glucose 282 H 12/09/17 05:12: WBC 6.6, RBC 4.35 L, Hgb 13.1, Hct 38.9 L, MCV 89.4, MCH 30.1, MCHC 33.7, RDW 13.7, RDW Differential 45.0 H, Plt Count 214, MPV 10.5, Immature Gran % (Auto) 0.000, Neut % (Auto) 53.1, Lymph % (Auto) 30.7, [place] % (Auto) 11.6 H, Eos % (Auto) 3.8, Baso % (Auto) 0.8, Absolute Neuts (auto) 3.5, Absolute Lymphs (auto) 2.02, Total Counted Not Reportable 12/09/17 05:12: PT 26.4 H, INR 2.4 12/09/17 05:12: Sodium 138, Potassium 3.9, Chloride 101, Carbon Dioxide 31.0, Anion Gap 6, BUN 24 H, Creatinine 1.91 H, Estim Creat Clear Calc 30.28, Est GFR (MDRD) Af Amer 44 L, Est GFR (MDRD) Non-Af 36 L, BUN/Creatinine Ratio 12.6, Glucose 209 H, Calcium 8.3 L, Magnesium 1.9 12/09/17 06:58: POC Glucose 213 H 12/09/17 11:14: POC Glucose 254 H Current Medications Aspirin (Ecotrin) 81 mg PO DAILY@0800 [facility] Last Admin: 12/09/17 07:58 Dose: 81 mg Atenolol (Tenormin (Beta Vitor)) 100 mg PO BID [facility] Last Admin: 12/09/17 10:59 Dose: 100 mg Cholecalciferol (Vitamin D) 2,000 unit PO DAILY [facility] Last Admin: 12/09/17 10:59 Dose: 2,000 unit Dextrose (D50w Syringe) 0 gm IV X1 PRN; Protocol PRN Reason: Hypoglycemia Furosemide (Lasix) 40 mg PO DAILY [facility] Glucagon () 1 mg IM .X1 PRN PRN Reason: Hypoglycemia Hydralazine HCl (Apresoline Iv) 10 mg IV Q6H PRN PRN PRN Reason: BLOOD PRESSURE ELEVATION Insulin Glargine (Lantus (Bk)) 10 units SC QHS [facility] Insulin Human Lispro (Humalog Kwikpen (Bk)) 0 unit SQ ACHS [facility]; Protocol Last Admin: 12/09/17 11:17 Dose: 4 units Isosorbide Mononitrate (Imdur) 60 mg PO DAILY [facility] Last Admin: 12/09/17 10:59 Dose: 60 mg Levothyroxine Sodium (Synthroid) 50 mcg PO DAILY@0600 [facility] Last Admin: 12/09/17 06:56 Dose: 50 mcg Lisinopril (Zestril) 40 mg PO BID [facility] Last Admin: 12/09/17 10:59 Dose: 40 mg Magnesium Hydroxide (Milk Of Magnesia) 30 ml PO DAILY PRN PRN PRN Reason: Constipation Nitroglycerin (Nitrostat) 0.4 mg SUBLINGUAL Q5M PRN PRN Reason: CARDIAC/CHEST PAIN Sodium Chloride () 5 - 30 ml IV UD PRN PRN Reason: SALINE FLUSH Last Admin: 12/09/17 10:59 Dose: 20 ml Warfarin Sodium (Coumadin (Pbkc)) 4 mg PO DAILY@1700 [facility] Last Admin: 12/08/17 17:14 Dose: 4 mg Medical Necessity - Tobacco Use Smoking Status: Never smoker Assessment/Plan All Active Problems Chest pain (Acute) Hypoglycemia (Acute) Acute encephalopathy (Acute) 77-year-old male with past medical history of ischemic cardiomyopathy, chronic atrial fibrillation, on Coumadin, comes in with complaints of chest pain 1. Acute NSTEMI, NICO score 6, troponin elevated, EKG shows atrial fibrillation, cardiology consulted, pharmacologic stress test planned for on Sunday Continue on aspirin, Coumadin, beta-vitor, isosorbide, lisinopril, continue to monitor on telemetry 2. Acute on chronic systolic CHF exacerbation,improving, 2D echo done shows EF of 35%, severe inferior and apical hypokinesis, RVSP is 50, grade 2 mild mitral and tricuspid regurgitation, creatinine slightly elevated, will continue Lasix 20 mg IV twice daily, continue strict I's and O's and CHF protocol. 3. Chronic atrial fibrillation, rate controlled, on Coumadin, continue with Coumadin, monitor INR, current INR is 2.4 4. Elevated creatinine, CKD stage III, creatinine elevated 1.91, continue to monitor 5. Acute respiratory insufficiency secondary to acute CHF exacerbation, resolved 6. Accelerated hypertension/hypertensive emergency, blood pressure is controlled now, continue to monitor 7. Type II DM, sugars slightly uncontrolled, home Lantus was held, on Accu- Cheks with insulin sliding scale, He was on 40 units of Lantus at home, will slowly resume with 10 units of Lantus at night 8. CAD status post stents, CABG, on aspirin, not on statin(allergy to simvastatin) 9. Elevated TSH, free T4 and free T3 normal, needs to be followed up in the outpatient. 10. DVT prophylaxis- patient on coumadin Code Visit Inpatient E&M: 90160 Subs Hosp L2
[2017-12-09 17:30] LABS: Bedside Glucose 256 mg/dL (70-110)
[2017-12-09 22:40] LABS: Bedside Glucose 315 mg/dL (70-110)
[2017-12-10] VITALS (7 sets, daily range): BP systolic 106–132; BP diastolic 52–70; PULSE 50–65; RESP 18; TEMP 36.7–37.2; O2SAT 92–96
[2017-12-10] MEDS: Lisinopril 40 MG Tablet PO (04:55)
[2017-12-10] MEDS: Levothyroxine 50 MCG Tablet PO (04:55)
[2017-12-10] MEDS: Aspirin E.C. 81 MG Tablet PO (04:55)
--- NOTE | 2017-12-10 05:05 | EKG12_ITS ---
Test Reason : AM EKG Blood Pressure : / mmHG Vent. Rate : 052 BPM Atrial Rate : 055 BPM P-R Int : 000 ms QRS Dur : 134 ms QT Int : 544 ms P-R-T Axes : 000 -11 170 degrees QTc Int : 505 ms Atrial fibrillation with slow ventricular response Non-specific intra-ventricular conduction block Cannot rule out Anterior infarct , age undetermined T wave abnormality, consider lateral ischemia Abnormal ECG Confirmed by CUBA NOWAK, JOS ([id number]), newspaper editor MISAEL HOPE ([id number]) on 12/13/2017 11:36:35 AM Referred By: GOSIA Confirmed By:JOS BRINK MD
[2017-12-10 07:34] LABS: Hematocrit 38.8 % (40-54); Hemoglobin 13.3 g/dl (13.0-16.5); Mean Corp Hgb Conc 34.3 g/gl (32-36); Mean Corpuscular Hgb 30.6 pg (27.0-32.0); Mean Corpuscular Volume 89.2 fL (80-94); Mean Platelet Vol. 11.3 fl (6.2-12.0); Platelet Count 223 K/mm3 (150-450); RBC Distribution Width CV 13.3 % (11.6-14.6); Red Blood Count 4.35 M/mm3 (4.6-6.2); White Blood Count 7.5 K/mm3 (4.4-11.0)
[2017-12-10 07:37] LABS: Scan Indicated on CBC? Y/N NO
[2017-12-10 08:00] LABS: Anion Gap 11 (5-15); BUN 28 mg/dL (7-18); BUN/Creat Ratio 16.2 RATIO (10-20); Calcium,Total 8.6 mg/dL (8.5-10.1); Chloride 98 mmol/L (98-107); Creatinine, Serum 1.73 mg/dL (0.70-1.30); EST Glomerular Filtration Rate 41 mL/min (>60); Est Glom Filt Rate - Afr Amer 49 mL/min (>60); Estimated Creatinine Clearance 33.43 ml/min; Glucose 292 mg/dL (74-106); Potassium 4.1 mmol/L (3.5-5.1); Sodium Level 137 mmol/L (136-145)
[2017-12-10] MEDS: Insulin Lispro 100 UNIT/ML INSULN.PEN SQ ×2 (08:21→11:39)
[2017-12-10 08:26] LABS: International Normalized Ratio 2.6; Prothrombin Time (Protime)PT. 28.1 SECONDS (11.7-14.9)
--- NOTE | 2017-12-10 08:37 | PCM.PN.HOSP ---
Patient Problems: Active and Suspected Problems Chest pain (Acute) Vitals/I&O's: Vital Signs Temp Pulse Resp BP Pulse Ox 98.0 F 55 L 18 115/58 L 96 12/10/17 08:16 12/10/17 08:16 12/10/17 08:16 12/10/17 08:16 12/10/17 08:16 Oxygen Flow Rate (L/min) 2 Oxygen Delivery Method Nasal Cannula Weight: 82.9 kg Body Mass Index (BMI) 29.5 Finger Stick Blood Glucose 27 Intake and Output for Last 24 Hours 12/08/17 12/09/17 12/10/17 23:59 23:59 23:59 Intake Total 770 / 770 1135 / 1135 50 / 50 Output Total 1550 / 1550 Balance 770 / 770 -415 / -415 50 / 50 Laboratory Results 12/09/17 11:14: POC Glucose 254 H 12/09/17 17:26: POC Glucose 256 H 12/09/17 22:29: POC Glucose 315 H 12/10/17 05:11: PT 28.1 H, INR 2.6 12/10/17 05:11: Sodium 137, Potassium 4.1, Chloride 98, Carbon Dioxide 28.0, Anion Gap 11, BUN 28 H, Creatinine 1.73 H, Estim Creat Clear Calc 33.43, Est GFR (MDRD) Af Amer 49 L, Est GFR (MDRD) Non-Af 41 L, BUN/Creatinine Ratio 16.2, Glucose 292 H, Calcium 8.6 12/10/17 05:11: WBC 7.5, RBC 4.35 L, Hgb 13.3, Hct 38.8 L, MCV 89.2, MCH 30.6, MCHC 34.3, RDW 13.3, RDW Differential 43.0, Plt Count 223, MPV 11.3 Current Medications Aspirin (Ecotrin) 81 mg PO DAILY@0800 [facility] Last Admin: 12/10/17 04:55 Dose: 81 mg Atenolol (Tenormin (Beta Vitor)) 100 mg PO BID [facility] Last Admin: 12/09/17 22:30 Dose: 100 mg Cholecalciferol (Vitamin D) 2,000 unit PO DAILY [facility] Last Admin: 12/09/17 10:59 Dose: 2,000 unit Dextrose (D50w Syringe) 0 gm IV X1 PRN; Protocol PRN Reason: Hypoglycemia Furosemide (Lasix) 40 mg PO DAILY [facility] Glucagon () 1 mg IM .X1 PRN PRN Reason: Hypoglycemia Hydralazine HCl (Apresoline Iv) 10 mg IV Q6H PRN PRN PRN Reason: BLOOD PRESSURE ELEVATION Insulin Human Lispro (Humalog Kwikpen (Bkc)) 0 unit SQ ACHS [facility]; Protocol Last Admin: 12/10/17 08:21 Dose: 3 units Isosorbide Mononitrate (Imdur) 60 mg PO DAILY [facility] Last Admin: 12/09/17 10:59 Dose: 60 mg Levothyroxine Sodium (Synthroid) 50 mcg PO DAILY@0600 [facility] Last Admin: 12/10/17 04:55 Dose: 50 mcg Lisinopril (Zestril) 40 mg PO BID [facility] Last Admin: 12/10/17 04:55 Dose: 40 mg Magnesium Hydroxide (Milk Of Magnesia) 30 ml PO DAILY PRN PRN PRN Reason: Constipation Nitroglycerin (Nitrostat) 0.4 mg SUBLINGUAL Q5M PRN PRN Reason: CARDIAC/CHEST PAIN Sodium Chloride () 5 - 30 ml IV UD PRN PRN Reason: SALINE FLUSH Last Admin: 12/09/17 10:59 Dose: 20 ml Warfarin Sodium (Coumadin (Pbkc)) 4 mg PO DAILY@1700 [facility] Last Admin: 12/09/17 17:30 Dose: 4 mg Medical Necessity - Tobacco Use Smoking Status: Never smoker Assessment/Plan All Active Problems Chest pain (Acute) Hypoglycemia (Acute) Acute encephalopathy (Acute)
--- NOTE | 2017-12-10 10:53 | STRESSREP_ITS ---
Stress Test Report Pharmacologic myocardial perfusion stress test. 77-year-old man with a history of chest pain abnormal cardiac enzymes. Stress protocol: Resting EKG demonstrates atrial for ablation with rate of 56 bpm incomplete left bundle branch block is noted nonspecific ST-T wave changes noted. 0.4 mg of regadenoson was infused per usual protocol followed by rapid intravenous saline flush injection continuous EKG monitoring was performed. Patient maintained atrial for ablation throughout the recording. The maximum heart rate was 63 bpm which was 44% of maximum predicted heart rate the maximum workload was 1 metabolic equivalent. The resting blood pressure was 102/72 with a final blood pressure 106/68. No clinical angina was noted. Myocardial perfusion protocol. 11.2 mCi of technetium 99m sestamibi was injected at rest. 0.4 mg of regadenoson was infused per usual protocol. At peak infusion 33.5 mCi of technetium 99m sestamibi was injected stress images were obtained stress and rest images were reconstructed and compared in the short axis vertical long horizontal long axis. Gated images were also obtained per Perfusion SPECT analysis: Review of the stress images demonstrate a mildly dilated cardiac silhouette size. The apical to mid inferior wall the apical lateral wall, anterior lateral and the inferolateral wall all exhibit a perfusion defect. There is a small area in the basal inferior wall with mildly reduced perfusion. The resting images demonstrate a similar patent. The above is suggestive of a previous ext ensive inferior infarct, anterolateral infarct and inferolateral infarct. This reversibility is noted to suggest ischemia. Gated SPECT analysis: Gated ejection fraction is 44%. 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
[2017-12-10] MEDS: Isosorbide Mononitrate 60 MG Tablet PO (11:34)
[2017-12-10] MEDS: Furosemide 40 MG Tablet PO (11:39)
[2017-12-10 11:41] LABS: Bedside Glucose 353 mg/dL (70-110)
--- NOTE | 2017-12-10 11:42 | DCINST_ITS ---
- Discharge Diagnoses Current Active Problems: Current Active and Chronic Problems Chest pain (Acute) Reason(s) for Visit for Discharge Instructions: Shortness of breath You will use the following diet at home:: Calorie/Carbohydrate Controlled (specify 1200, 1400, etc), Cardiac Your food should be the consistency of: Regular Your liquids should be the consistency of: Regular/Thin Discharge Activity: Return to Normal Activity Additional Instructions: Follow a low salt diet. Weigh yourself daily. Let your doctor know if your weight goes up more than 4 pounds. You should continue to check your INR with your primary doctor as scheduled. You will need to repeat your kidney test within a week with your PCP. Take note of your new medications. You will be referred for therapy in the outpatient. Allergies/Adverse Reactions: Allergies simvastatin Adverse Reaction (Verified 12/08/17 03:41) MUSCLE ACHES PATIENT REPORTED IN ED THAT PATIENT EXPERIENCED MUSCLE PAIN ON SIMVASTATIN Medications to take at Discharge Atenolol 100 mg PO BID 09/19/13 Lisinopril 40 mg PO BID 09/19/13 Vitamin D 1,000 units PO DAILY 09/19/13 Warfarin 4 mg PO DAILY 09/19/13 Aspirin E.C. [Ecotrin] 81 mg PO DAILY@0800 #30 tablet 12/10/17 Furosemide [Lasix] 40 mg PO DAILY #30 tablet 12/10/17 Insulin Aspart [Novolog Flexpen] 5 unit SQ TIDCM #0 12/10/17 Insulin Glargine [Lantus SoloStar Pen] 15 units SC QHS pen 12/10/17 Isosorbide Mononitrate [Imdur] 60 mg PO DAILY #30 tablet 12/10/17 Levothyroxine [Synthroid] 50 mcg PO DAILY@0600 #30 tablet 12/10/17 The following prescriptions were given: Aspirin E.C. [Ecotrin] 81 mg PO DAILY@0800 #30 tablet Furosemide [Lasix] 40 mg PO DAILY #30 tablet Isosorbide Mononitrate [Imdur] 60 mg PO DAILY #30 tablet Levothyroxine [Synthroid] 50 mcg PO DAILY@0600 #30 tablet Orders to be completed after discharge: Basic Metabolic Profile (BMP) Time Frame: 3 Days, Location: Laboratory Primary Care Physician: Kyle Silva Chi, MD [Primary Care Provider] - Please follow up with your Primary Care Physician in: within 2 weeks Test Results: Test results from this visit will be discussed in further detail at your follow- up appointment, if applicable. Proposed Discharge Date: 12/10/17
--- NOTE | 2017-12-10 11:45 | DS.PCM_ITS ---
Discharge Date and Diagnosis Date of Admission: 12/08/17 Date of Discharge: 12/10/17 - Primary Discharge Diagnosis Active and Suspected Problems Chest pain (Acute) - Secondary Discharge Diagnosis Chronic Problems Hypothyroidism (Chronic) Afib (Chronic) HTN (hypertension) (Chronic) Hx of CABG (Chronic) DM2 (diabetes mellitus, type 2) (Chronic) CAD (coronary artery disease) (Chronic) Hospital Course and Treatment Imaging Results: 12/10/17 11:12 Nuclear Stress Test - Chemical [NM] Routine Clinical Impression(s) from Imaging Studies Chest X-Ray 12/08/17 04:00 IMPRESSION: Cardiomegaly. Pulmonary vascular congestion/edema. No focal consolidation. Basilar atelectasis/infiltrate. There is areas of peribronchial thickening. This could represent bronchitis in the appropriate clinical setting. Electronically Signed: Ruben Haroon, at 4:18 EDT Tel , Service support , Cardiology Operations: None Procedures: Stress test Summary of Care Provided: 7-year-old male with past medical history of ischemic cardiomyopathy, chronic atrial fibrillation, on Coumadin, comes in with complaints of chest pain. He was found to have elevated troponins peaked at 1.2, cardiology was consulted. 1. Acute NSTEMI, NICO score 6, troponin elevated, EKG shows atrial fibrillation, cardiology consulted, pharmacologic stress test planned and was negative, managed on aspirin, Coumadin, beta-vitor, isosorbide, lisinopril. 2. Acute on chronic systolic CHF exacerbation, EF of 35%, managed on IV Lasix with improvement in diuresis. Patient had his Lasix adjusted to his renal function which was slightly elevated. Renal function improved with adjustment in Lasix. 3. Chronic atrial fibrillation, rate controlled, on Coumadi 4. Elevated creatinine, CKD stage III, creatinine elevation to 1.91 was secondary to diuretic effect, resolved back to his normal with changes in his diuretic 5. Acute respiratory insufficiency secondary to acute CHF exacerbation, present on admission, resolved 6. Accelerated hypertension/hypertensive emergency, present on admission, blood pressure was better controlled with changes to his medication 7. Type II DM, blood sugars was initially uncontrolled with changes made to his Lantus, with episode of near hypoglycemia, he was started slowly on Lantus, discussed in detail with patient and the , will need to monitor blood sugars and may eventually go back to his admitting Lantus. 8. CAD status post stents, CABG, on aspirin, not on statin(allergy to simvastatin) 9. Elevated TSH, free T4 and free T3 normal, needs to be followed up in the outpatient. Subjective: On the day of discharge, patient felt well, denied any worsening shortness of breath. I had seen him ambulate with his nurse. No worsening shortness of breath, chest pain, dizziness. No acute events on telemetry Objective: General: Alert, Oriented x3, Cooperative, No apparent distress, looks improved, not on oxygen HEENT: Atraumatic, PERRLA, EOMI, Normocephalic Oral: Moist Mucosa Neck: Supple, No JVD, Negative Carotid Bruits Lungs: Clear to auscultation, Normal air movement Cardiovascular: Regular Rhythm, Normal S1, Normal S2, No murmurs, Irregular Rate Abdomen: Bowel Sounds Present, Soft, Non Tender, Non-Distended, No Hepato- splenomegaly Extremities: No edema Skin: No rashes, No breakdown Musculoskeletal: No Tenderness to Palpation of Joints or Extremities Lymphatic: No Cervical, Supraclavicular, or Inguinal Adenopathy Neurological: Cranial nerves II-XII grossly intact, Neuro grossly intact Psych/Mental Status: Normal Affect, Appropriate - Physical Exam Vital Signs Temp Pulse Resp BP Pulse Ox 98.2 F 50 L 18 106/52 L 92 12/10/17 11:31 12/10/17 11:31 12/10/17 11:31 12/10/17 11:31 12/10/17 11:31 Oxygen Flow Rate (L/min) 2 Oxygen Delivery Method Room Air Weight: 82.9 kg Body Mass Index (BMI) 29.5 Finger Stick Blood Glucose 27 Intake and Output for Last 24 Hours 12/08/17 12/09/17 12/10/17 23:59 23:59 23:59 Intake Total 770 / 770 1135 / 1135 50 / 50 Output Total 1550 / 1550 Balance 770 / 770 -415 / -415 50 / 50 Laboratory Tests Past 24 Hrs 12/10/17 12/10/17 12/10/17 05:11 05:11 05:11 WBC 7.5 RBC 4.35 L Hgb 13.3 Hct 38.8 L MCV 89.2 MCH 30.6 MCHC 34.3 RDW 13.3 RDW Differential 43.0 Plt Count 223 MPV 11.3 PT 28.1 H INR 2.6 Sodium 137 Potassium 4.1 Chloride 98 Carbon Dioxide 28.0 Anion Gap 11 BUN 28 H Creatinine 1.73 H Estim Creat Clear Calc 33.43 Est GFR (MDRD) Af Amer 49 L Est GFR (MDRD) Non-Af 41 L BUN/Creatinine Ratio 16.2 Glucose 292 H Calcium 8.6 POC Glucose 12/10/17 12/09/17 12/09/17 11:28 22:29 17:26 POC Glucose 353 H 315 H 256 H Discharge Diet: Low fat/ Low Cholesterol, 2000 mg Sodium Diet Discharge Activity: Return to Normal Activity Home Medications: Medications to take at Discharge Atenolol 100 mg PO BID 09/19/13 Lisinopril 40 mg PO BID 09/19/13 Vitamin D 1,000 units PO DAILY 09/19/13 Warfarin 4 mg PO DAILY 09/19/13 Aspirin E.C. [Ecotrin] 81 mg PO DAILY@0800 #30 tablet 12/10/17 Furosemide [Lasix] 40 mg PO DAILY #30 tablet 12/10/17 Insulin Aspart [Novolog Flexpen] 5 unit SQ TIDCM #0 12/10/17 Insulin Glargine [Lantus SoloStar Pen] 15 units SC QHS pen 12/10/17 Isosorbide Mononitrate [Imdur] 60 mg PO DAILY #30 tablet 12/10/17 Levothyroxine [Synthroid] 50 mcg PO DAILY@0600 #30 tablet 12/10/17 Following Prescrptions Were Given to Patient: Aspirin E.C. [Ecotrin] 81 mg PO DAILY@0800 #30 tablet Furosemide [Lasix] 40 mg PO DAILY #30 tablet Isosorbide Mononitrate [Imdur] 60 mg PO DAILY #30 tablet Levothyroxine [Synthroid] 50 mcg PO DAILY@0600 #30 tablet Other Amb Orders: Basic Metabolic Profile (BMP) Time Frame: 3 Days, Location: Laboratory Primary Care Physician: Kyle Silva Chi, MD [Primary Care Provider] - Please follow up with your Primary Care Physician in: within 2 weeks Disposition: Home Minutes spent on discharge:: 40 Patient Condition:: Stable Medical Necessity - Tobacco Use Smoking Status: Never smoker Meaningful Use Info Meaningful Use Diagnoses (Choose all that apply): AMI, CHF - AMI Aspirin given w/in 24hrs of arrival?: Yes ASA at discharge?: Yes Statins at discharge?: Yes Ildefonso/ARB at discharge?: Yes Beta Vitor at discharge?: Yes Done w/ Acute VT measure.: Yes - CHF ILDEFONSO/ARB ordered at discharge?: Yes Documented LVEF (%): 35 Code Visit Inpatient E&M: 06412 Disch Hosp
--- NOTE | 2017-12-10 11:53 | NURSING ---
pt ambulated in hallway and back to bed. Pt's spo2 post ambulation 97% RA
[2017-12-10 12:11] LABS: Bedside Glucose 282 mg/dL (70-110)
--- NOTE | 2017-12-10 12:50 | PHA.DC.COU ---
Pharmacy Services has performed discharge medication counseling for this patient. The patient was counseled on the following discharge medications and changes in medications for homegoing review. JANET SUNR The Reason for Use, instructions for use, and potential side effects were reviewed for all new medications. The patient's questions regarding all of their medications were answered. The patient demonstrated some understanding but would benefit from further education and reinforcement.
--- NOTE | 2017-12-10 13:03 | CASEMGMT ---
Therapy is recommending further skilled therapy at this time. This RN CM to room to speak with pt and regarding therapy. HHC and OP therapy explained at this time as well as therapy recommedation and pt declines OP therapy at this time and states that he is not homebound for HHC at this time. tried to encourage pt to do OP therapy and pt states 'well, you can go do it for me then.' Pt/ voice no further concerns/needs at this time. Dr. Iyer aware and voices understanding. Pt/ are aware if HHC or OP needed once home then they can f/u with PCP and they can order for pt. SStnoman PARK CM
--- NOTE | 2017-12-12 15:41 | CASEMGMT ---
VIVIAN MANE Discharge F/U Phone Call LACReji: Mark Strata: 3 Discharge date: 12/10/17 Call date: 12/12/17 Call time: 1541 Duration: 1545 Admission dx: CHF exacerbation Pt is not able to come to phone at this time but offers to answers questions for pt at this time. Per , pt had been doing ok until today. She states that his 'sugar was greater than 500' this morning but that they have gotten it to come down and she also states that pt was now having nausea after taking a ntg tab. She states that pt was having pain and then chose to take ntg. This RN CM tried to clarify where the pain was but couldn't answer at this time. This RN CM encouraged to bring pt to hospital if he is having chest pain with nausea and she states that she tried to get him to come already and he refused. Pt tells that he is feeling 'fine and all better' at this time and that the ntg helped. does state that pt is scheduled to see Dr. Silva in the morning and she states they plan on keeping that appt. states no questions regarding pt's discharge instructions or medications at this time. voices no suggestions of [facility] at this time and voices no further concerns/needs at this time. This RN CM once again encouraged to bring pt to ED, especially if the pain returns, voices understanding. Carlene PARK CM
== END 2017-12-10 14:45 | disposition home or self-care (01) | DRG 280 ==
LOC: ED 04:21 → PCU 05:06
PROVIDERS: Admitting Provider Student in an Organized Health Care Education/Training Program; Emergency Provider Emergency Medicine; Family Provider Family Medicine Geriatric Medicine; PCP Family Medicine Geriatric Medicine; Visit Provider Internal Medicine
DX: I21.4 Non-ST elevation (NSTEMI) myocardial infarction (principal); I50.23 Acute on chronic systolic (congestive) heart failure; J96.01 Acute respiratory failure with hypoxia; I16.1 Hypertensive emergency; I13.0 Hypertensive heart and chronic kidney disease with heart failure and stage 1 through stage 4 chronic kidney disease, or unspecified chronic kidney disease; E87.1 Hypo-osmolality and hyponatremia; I48.2 Chronic atrial fibrillation; R06.89 Other abnormalities of breathing; N18.3 Chronic kidney disease, stage 3 (moderate); E11.22 Type 2 diabetes mellitus with diabetic chronic kidney disease; E11.65 Type 2 diabetes mellitus with hyperglycemia; I25.10 Atherosclerotic heart disease of native coronary artery without angina pectoris; Z95.1 Presence of aortocoronary bypass graft; R94.6 Abnormal results of thyroid function studies; Z79.01 Long term (current) use of anticoagulants; Z79.82 Long term (current) use of aspirin; E03.9 Hypothyroidism, unspecified; Z79.4 Long term (current) use of insulin; Z79.899 Other long term (current) drug therapy; I16.0 Hypertensive urgency; Z66 Do not resuscitate; Z86.73 Personal history of transient ischemic attack (TIA), and cerebral infarction without residual deficits; I25.5 Ischemic cardiomyopathy
CPT/HCPCS: 36415; 71046; 78452; 80048; 80061; 82962; 83036; 83735; 83880; 84439; 84443; 84481; 84484; 85025; 85027; 85610; 93005; 93017; 93306; 94640; 97110; 97161; 97166; 99285; A9500; 90686; A4216; J1940; J2785

== ENCOUNTER → 2017-12-13 11:36 | Outpatient (CLI) | payer MEDICARE, SELFPAY ==
[2017-12-13 12:23] LABS: Anion Gap 7 (5-15); BUN 27 mg/dL (7-18); BUN/Creat Ratio 14.3 RATIO (10-20); Calcium,Total 8.9 mg/dL (8.5-10.1); Chloride 98 mmol/L (98-107); Creatinine, Serum 1.89 mg/dL (0.70-1.30); EST Glomerular Filtration Rate 37 mL/min (>60); Est Glom Filt Rate - Afr Amer 45 mL/min (>60); Glucose 202 mg/dL (74-106); Potassium 3.8 mmol/L (3.5-5.1); Sodium Level 135 mmol/L (136-145)
[2017-12-13 12:30] LABS: International Normalized Ratio 2.7; Prothrombin Time (Protime)PT. 29.1 SECONDS (11.7-14.9)
== END ==
PROVIDERS: Family Provider Family Medicine Geriatric Medicine; PCP Family Medicine Geriatric Medicine; Visit Provider Family Medicine Geriatric Medicine
DX: E11.9 Type 2 diabetes mellitus without complications (principal); I48.0 Paroxysmal atrial fibrillation; R06.02 Shortness of breath
CPT/HCPCS: 36415; 80048; 83036; 85610

== ENCOUNTER → 2017-12-27 12:42 | Outpatient (CLI) | payer MEDICARE, SELFPAY ==
[2017-12-27 13:09] LABS: Absolute Lymphocyte Count 2.02 X10^3/ul (0.83-4.51); Basophil# 0.04 X10^3/uL; Basophil% 0.5 % (0-1); Eosinophil# 0.28 X10^3/uL; Eosinophils% 3.8 % (0-5); Hematocrit 41.2 % (40-54); Hemoglobin 13.6 g/dl (13.0-16.5); Lymphocyte # 2.02 X10^3/ul (4.0); Lymphocyte % 27.4 % (19-41); Mean Corpuscular Hgb 29.8 pg (27.0-32.0); Mean Corpuscular Volume 90.4 fL (80-94); Mean Platelet Vol. 10.4 fl (6.2-12.0); Monocyte# 1.07 X10^3/uL; Monocyte% 14.5 % (0-10); Neutrophil # 3.96 X10^3/uL (2.7-7.7); Neutrophil % 53.7 % (47-70); Platelet Count 276 K/mm3 (150-450); RBC Distribution Width CV 13.3 % (11.6-14.6); Red Blood Count 4.56 M/mm3 (4.6-6.2); White Blood Count 7.4 K/mm3 (4.4-11.0)
[2017-12-27 13:13] LABS: POSITIVE COUNT NO; POSITIVE DIFFERENTIAL NO; POSITIVE MORPHOLOGY NO
[2017-12-27 13:43] LABS: Anion Gap 8 (5-15); BUN 20 mg/dL (7-18); BUN/Creat Ratio 11.3 RATIO (10-20); Chloride 100 mmol/L (98-107); Creatinine, Serum 1.77 mg/dL (0.70-1.30); EST Glomerular Filtration Rate 40 mL/min (>60); Est Glom Filt Rate - Afr Amer 48 mL/min (>60); Glucose 101 mg/dL (74-106); Potassium 4.5 mmol/L (3.5-5.1); Sodium Level 139 mmol/L (136-145)
== END ==
PROVIDERS: Family Provider Family Medicine Geriatric Medicine; PCP Family Medicine Geriatric Medicine; Referring Provider Family Medicine Geriatric Medicine; Visit Provider Family Medicine Geriatric Medicine
DX: E03.9 Hypothyroidism, unspecified (principal); R07.9 Chest pain, unspecified; N17.9 Acute kidney failure, unspecified
CPT/HCPCS: 36415; 80048; 84443; 85025

== ENCOUNTER → 2018-01-08 10:51 | Outpatient (CLI) | payer MEDICARE, SELFPAY ==
[2018-01-08 12:40] LABS: Absolute Lymphocyte Count 2.31 X10^3/ul (0.83-4.51); Absolute Neutrophil Count 3.7 X10^3/uL (2.0-7.7); Basophil# 0.06 X10^3/uL; Basophil% 0.8 % (0-1); Eosinophils% 5.3 % (0-5); Hemoglobin 13.6 g/dl (13.0-16.5); Lymphocyte # 2.31 X10^3/ul (4.0); Lymphocyte % 30.6 % (19-41); Mean Corp Hgb Conc 33.2 g/gl (32-36); Mean Corpuscular Hgb 30.3 pg (27.0-32.0); Mean Corpuscular Volume 91.3 fL (80-94); Mean Platelet Vol. 10.9 fl (6.2-12.0); Monocyte# 1.06 X10^3/uL; Platelet Count 277 K/mm3 (150-450); RBC Distribution Width CV 13.9 % (11.6-14.6); RBC Distribution Width SD 45.9 fl (35.1-43.9); Red Blood Count 4.49 M/mm3 (4.6-6.2); White Blood Count 7.6 K/mm3 (4.4-11.0)
[2018-01-08 12:45] LABS: POSITIVE COUNT NO; POSITIVE DIFFERENTIAL NO; POSITIVE MORPHOLOGY NO
[2018-01-08 13:07] LABS: Anion Gap 9 (5-15); BUN 13 mg/dL (7-18); BUN/Creat Ratio 7.8 RATIO (10-20); Calcium,Total 9.1 mg/dL (8.5-10.1); Chloride 101 mmol/L (98-107); Creatinine, Serum 1.67 mg/dL (0.70-1.30); EST Glomerular Filtration Rate 43 mL/min (>60); Est Glom Filt Rate - Afr Amer 52 mL/min (>60); Glucose 161 mg/dL (74-106); Potassium 3.8 mmol/L (3.5-5.1); Sodium Level 141 mmol/L (136-145)
== END ==
PROVIDERS: Family Provider Family Medicine Geriatric Medicine; PCP Family Medicine Geriatric Medicine; Visit Provider Family Medicine Geriatric Medicine
DX: I50.23 Acute on chronic systolic (congestive) heart failure (principal)
CPT/HCPCS: 36415; 80048; 85025

== ENCOUNTER 2018-01-10 03:31 | Observation (INO) | payer MEDICARE, SELFPAY ==
[2018-01-10] VITALS (8 sets, daily range): BP systolic 122–155; BP diastolic 62–94; PULSE 60–69; RESP 18–22; TEMP 36.7–37.1; O2SAT 92–98; BMI 29.8; BMI 28.8
--- NOTE | 2018-01-10 03:52 | EKG12_ITS ---
Test Reason : CP Blood Pressure : / mmHG Vent. Rate : 066 BPM Atrial Rate : 078 BPM P-R Int : 000 ms QRS Dur : 146 ms QT Int : 488 ms P-R-T Axes : 000 -23 155 degrees QTc Int : 511 ms Atrial fibrillation Left bundle branch block Abnormal ECG Confirmed by JUAN NOWAK, LEONARD ([id number]), greeting card editor MISAEL HOPE ([id number]) on 01/11/2018 3:45:06 PM Referred By: DR GARCÍA Confirmed By:LEONARD MARTINEZ MD
--- NOTE | 2018-01-10 03:52 | RAD_ITS ---
HISTORY: C/O CHEST PAINSTATES HAD A HEART ATTACK 3 WEEKS AGO EXAM: XR Chest 2 views: Portable COMPARISON: 12/08/2017 FINDINGS: Similar findings with comparison to previous. Cardiomegaly, unchanged. Bilateral septal interstitial thickening within the mid and lower lung zones bilaterally, worse on the right, in keeping with chronic vascular congestion with interstitial edema. No pulmonary consolidation. No pleural effusion. Atherosclerotic thoracic aorta. Previous median sternotomy. RAD/Chest 1 View (Portable) IMPRESSION: Chronic congestive heart failure with cardiomegaly and interstitial pulmonary edema, worse on the right. at 0431 Reported and signed by: Geovany Milner MD Electronically Signed: Geovany Milner, at 4:29 EST Tel , Service support ,
--- NOTE | 2018-01-10 03:57 | ED.VISSUMM ---
- ER Visit Summary Date of Service: 01/10/18 Chief Complaint: Chest pain History of Present Illness: The patient is a 77 M with 2 hours of chest pain. He has similar symptoms a few weeks ago, he has a history of bypass surgery 20 years ago. He took nitroglycerin at home and his pain is almost gone but not fully. No cough no shortness of breath no fever or chills. Physical Examination: Not appear in acute distress. Moist mucous membranes, no obvious facial deformity No C-spine tenderness supple neck. Regular rate and rhythm without any obvious murmurs Clear lungs bilaterally speaking in full sentences without any obvious respiratory distress Abdomen soft and nontender no guarding or rebound Moves all extremities without any difficulty or pain. Skin does not show any obvious rashes or lesions, no trauma. Alert oriented ?3 with no gross focal deficit Emergency Department Course and Treatment: Patient's EKG is unremarkable, atrial fibrillation which is old, left bundle branch block which is old. This is unchanged from his prior EKG. he recently was admitted for myocardial infarction, he had no intervention, he has some elevated troponin this may be from his prior non-ST elevation ND, regardless he will be observed in the hospital. Disposition: Admit to the hospital in stable condition Impression: Acute coronary syndrome This note was generated with [employer] dictation software. It may contain incorrect words, spelling, and punctuation that were not noted in review of the chart prior to signing ED Disposition - Plan for ED Patient: Chief Complaint: Chest Pain Referrals: Kyle Silva Chi, MD [Primary Care Provider] -
[2018-01-10] MEDS: Nitroglycerin Oint 1 INCH PACKET TRANSDERM. (04:00)
[2018-01-10 04:25] LABS: Absolute Lymphocyte Count 2.28 X10^3/ul (0.83-4.51); Absolute Neutrophil Count 4.4 X10^3/uL (2.0-7.7); Basophil# 0.02 X10^3/uL; Basophil% 0.3 % (0-1); Eosinophil# 0.32 X10^3/uL; Hematocrit 42.7 % (40-54); Hemoglobin 14.1 g/dl (13.0-16.5); Lymphocyte # 2.28 X10^3/ul (4.0); Lymphocyte % 28.8 % (19-41); Mean Corpuscular Hgb 30.5 pg (27.0-32.0); Mean Corpuscular Volume 92.2 fL (80-94); Mean Platelet Vol. 11.2 fl (6.2-12.0); Monocyte# 0.89 X10^3/uL; Monocyte% 11.2 % (0-10); Neutrophil % 55.6 % (47-70); Platelet Count 269 K/mm3 (150-450); RBC Distribution Width SD 47.4 fl (35.1-43.9); Red Blood Count 4.63 M/mm3 (4.6-6.2); White Blood Count 7.9 K/mm3 (4.4-11.0)
[2018-01-10 04:26] LABS: POSITIVE COUNT NO; POSITIVE DIFFERENTIAL NO; POSITIVE MORPHOLOGY NO
[2018-01-10 04:29] LABS: International Normalized Ratio 1.6; Prothrombin Time (Protime)PT. 18.8 SECONDS (11.7-14.9)
[2018-01-10 04:38] LABS: Anion Gap 11 (5-15); BUN 15 mg/dL (7-18); BUN/Creat Ratio 7.8 RATIO (10-20); Calcium,Total 8.7 mg/dL (8.5-10.1); Chloride 95 mmol/L (98-107); Creatinine, Serum 1.92 mg/dL (0.70-1.30); EST Glomerular Filtration Rate 36 mL/min (>60); Est Glom Filt Rate - Afr Amer 44 mL/min (>60); Estimated Creatinine Clearance 30.12 ml/min; Glucose 301 mg/dL (74-106); Potassium 3.9 mmol/L (3.5-5.1); Sodium Level 136 mmol/L (136-145)
--- NOTE | 2018-01-10 07:27 | HP.PCM_ITS ---
Problem List (1) Chest pain Status: Acute History of Present Illness Date of Admission: 01/10/18 Chief Complaint: chest Pain The patient is a 77 year old M with a significant history of CAD status post CABG and stent; diabetes mellitus; hypertension; A. fib on chronic anticoagulation who presented because of excruciating substernal progressively worsening chest pain that woke him from sleep. His chest pain radiated to his right upper extremity and to his right upper flanks. He noted some swelling and increased warmth at his right upper flank. Patient took 2 pills of nitroglycerin while at home. The nitroglycerin helped improved his pain but it did not take the pain completely away. He denies any aggravating factor to the chest pain. At the emergency department his troponin was 0.222. His EKG showed controlled A. fib with left bundle branch block unchanged from previous. He was given nitroglycerin paste at the ED. Past Medical History Past Medical History (Chronic Problems): Chronic Problems Hypothyroidism (Chronic) Afib (Chronic) HTN (hypertension) (Chronic) Hx of CABG (Chronic) DM2 (diabetes mellitus, type 2) (Chronic) CAD (coronary artery disease) (Chronic) Allergies simvastatin Adverse Reaction (Verified 01/10/18 03:34) MUSCLE ACHES PATIENT REPORTED IN ED THAT PATIENT EXPERIENCED MUSCLE PAIN ON SIMVASTATIN Home Medications: Ambulatory Orders Medication Instructions Recorded Aspirin E.C. [Ecotrin] 81 mg PO DAILY@0800 #30 tablet 12/10/17 Isosorbide Mononitrate [Imdur] 60 mg PO DAILY #30 tablet 12/10/17 Levothyroxine [Synthroid] 50 mcg PO DAILY@0600 #30 tablet 12/10/17 Atenolol [Tenormin (Beta Vitor)] 100 mg PO BID 01/10/18 Cholecalciferol (VIT D3) [Vitamin 1,000 unit PO DAILY 01/10/18 D] Furosemide [Lasix] 80 mg PO DAILY 01/10/18 Insulin Aspart [Novolog Flexpen] 15 unit SQ TIDCM 01/10/18 Insulin Glargine [Lantus SoloStar 40 units SC QHS 01/10/18 Pen] Sacubitril/Valsartan 97-103 mg 1 each PO BID 01/10/18 [Entresto 97 mg-103 mg Tablet] Warfarin [Coumadin ([facility]KC)] 4 mg PO DAILY 01/10/18 Surgical History: coronary bypass surgery Psychiatric History: No pertinent psych hx Smoking Status: Never smoker - *Family History Paternal History Items: Stroke Maternal History Items: Cancer - breast. Review of Systems Constitutional: Denies: Chills, Fever, Weight Change HEENT: Denies: Head Aches, Sinus Congestion, Sinus Drainage Cardiovascular: Reports: Chest Pain. Denies: Palpitations Respiratory: Denies: Cough, Shortness of breath at rest, Sputum production Gastrointestinal: Denies: Abdominal Pain, Nausea, Vomiting Genitourinary: Denies: Dysuria Musculoskeletal: Denies: Joint Pain, Joint Tenderness Skin: Denies: Rash, Wounds Neurological: Denies: Numbness, Tingling, Focal weakness Psychiatric: Denies: Anxiety, Depression, Homicidal Ideations, Suicidal Ideations Hematologic/ Lymphatic: Denies: Easy Bruising, Easy Bleeding VTE Information - Inpt Only VTE Present on Admission: No VTE Mechan Device Prophylaxis: None VTE Pharm Prophylaxis ordered?: No Reason prophylaxis not ordered:: Treatment Not Indicated - On Coumadin for Afib - Physical Exam General: Alert, Oriented x3, Cooperative HEENT: Atraumatic, PERRLA, EOMI, Normocephalic Neck: Supple, No JVD, Negative Carotid Bruits Lungs: Clear to auscultation, Normal air movement Cardiovascular: No murmurs, Irregular Rate Abdomen: Bowel Sounds Present, Soft, Non Tender Extremities: No edema, Capillary Refill Less than 3 Seconds Skin: No rashes, No breakdown Musculoskeletal: No Tenderness to Palpation of Joints or Extremities Neurological: Cranial nerves II-XII grossly intact Psych/Mental Status: Normal Affect, Appropriate Vital Signs Temp Pulse Resp BP Pulse Ox 98.1 F 62 20 H 122/62 H 92 01/10/18 03:32 01/10/18 06:01 01/10/18 06:01 01/10/18 06:01 01/10/18 06:01 Oxygen Delivery Method Room Air Weight: 86.4 kg Body Mass Index (BMI) 29.8 Finger Stick Blood Glucose 27 Laboratory Tests Past 24 Hrs 01/10/18 01/10/18 01/10/18 03:45 03:45 03:45 WBC 7.9 RBC 4.63 Hgb 14.1 Hct 42.7 MCV 92.2 MCH 30.5 MCHC 33.0 RDW 14.0 RDW Differential 47.4 H Plt Count 269 MPV 11.2 Immature Gran % (Auto) 0.100 Neut % (Auto) 55.6 Lymph % (Auto) 28.8 [place] % (Auto) 11.2 H Eos % (Auto) 4.0 Baso % (Auto) 0.3 Absolute Neuts (auto) 4.4 Absolute Lymphs (auto) 2.28 Total Counted Not Reportable PT 18.8 H INR 1.6 Sodium 136 Potassium 3.9 Chloride 95 L Carbon Dioxide 30.0 Anion Gap 11 BUN 15 Creatinine 1.92 H Estim Creat Clear Calc 30.12 Est GFR (MDRD) Af Amer 44 L Est GFR (MDRD) Non-Af 36 L BUN/Creatinine Ratio 7.8 L Glucose 301 H Calcium 8.7 Troponin I 0.222 H Assessment/Plan All Active Problems Chest pain (Acute) Hypoglycemia (Acute) Acute encephalopathy (Acute) The patient is a 77 year old M with a significant history of CAD status post CABG and stent; diabetes mellitus; hypertension; A. fib on chronic anticoagulation who presented because of excruciating substernal progressively worsening chest pain. Chest pain Patient had acute non-ST elevation [place] on 12/08/2017. Pharmacological myocardial perfusion stress test on December 10 2017 showed: Extensive inferior infarct involving the mid inferior, apical inferior. Previous anterolateral infarct and apical lateral infarct No ischemia was noted Ischemic cardiomyopathy. His gated ejection fraction was 44%. Patient was managed at that time with aspirin, beta-blockers, isosorbide and lisinopril. Echocardiogram on 12/08/2017 showed an ejection fraction of 35%. Severe inferior and apical Hypokinesis. Mildly dilated right ventricle. Mild dilated right ventricular systolic dysfunction. RVSP of 50. Moderate pulmonary hypertension. At this time patient states that he does not wants any cardiac catheterization; any more stents or further percutaneous interventions on his coronaries. Shared decision not to do any more troponins at this time since patient has no plans to do any coronary interventions. Patient is a DNR CCA. Continue aspirin daily. Nitroglycerin paste was placed on patient at emergency department; continue. Patient is allergic to simvastatin and on not on any home statins. Continue atenolol. Patient takes isosorbide mononitrate 60 mg daily. Consider adjusting antianginal medications. Ischemic cardiomyopathy Ejection from 35% on 12/08/2017 Continue atenolol, Imdur, Entresto and Lasix. A. fib On admission patient was in controlled A. fib. INR was 1.6. Patient takes Coumadin 4mg daily. Coumadin 8 mg x1 today. Check INR in a.m if patient is still here and adjust Coumadin as needed should. Diabetes mellitus Blood glucose on admission was uncontrolled. Continue home Lantus. Adjust prandial insulin and add correction scale insulin. Accu-Cheks q. before meals at bedtime. Hypertension Blood pressure admission was not within goal but fairly acceptable because of patient age Continue blood pressure medication as above Trend blood pressures and adjust blood pressure medication as necessary. DVT Prophylaxis Not indicated as patient is getting Coumadin for A. fib. Code Visit OBSV E&M: 10496 Initial observation care L3
--- NOTE | 2018-01-10 07:33 | EKG12_ITS ---
Test Reason : Blood Pressure : / mmHG Vent. Rate : 069 BPM Atrial Rate : 110 BPM P-R Int : 000 ms QRS Dur : 146 ms QT Int : 488 ms P-R-T Axes : 000 -15 154 degrees QTc Int : 522 ms Atrial fibrillation Left bundle branch block Abnormal ECG When compared with ECG of 10-JAN-2018 03:35, MANUAL COMPARISON REQUIRED, DATA IS UNCONFIRMED Confirmed by JUAN NOWAK, LEONARD ([id number]), market editor MISAEL HOPE ([id number]) on 01/14/2018 1:48:23 PM Referred By: PRABHJOT Confirmed By:LEONARD MARTINEZ MD
[2018-01-10 08:26] LABS: Bedside Glucose 238 mg/dL (70-110)
--- NOTE | 2018-01-10 13:30 | DCINST_ITS ---
You will use the following diet at home:: Calorie/Carbohydrate Controlled (specify 1200, 1400, etc) - 1800 kizzy Your food should be the consistency of: Regular Your liquids should be the consistency of: Regular/Thin Discharge Activity: - - limit exertional activity until seen by Dr. Silva Weight Bearing Status: Full weight bearing Allergies/Adverse Reactions: Allergies simvastatin Adverse Reaction (Verified 01/10/18 03:34) MUSCLE ACHES PATIENT REPORTED IN ED THAT PATIENT EXPERIENCED MUSCLE PAIN ON SIMVASTATIN Medications to take at Discharge Aspirin E.C. [Ecotrin] 81 mg PO DAILY@0800 #30 tablet 12/10/17 Levothyroxine [Synthroid] 50 mcg PO DAILY@0600 #30 tablet 12/10/17 Cholecalciferol (VIT D3) [Vitamin D3] 1,000 unit PO DAILY 01/10/18 Clopidogrel Bisulfate [Plavix] 75 mg PO DAILY #30 tablet 01/10/18 Furosemide [Lasix] 80 mg PO BID 01/10/18 Insulin Aspart [Novolog Flexpen] 15 unit SQ TIDCM 01/10/18 Insulin Glargine [Lantus SoloStar Pen] 40 units SC BREAKFAST 01/10/18 Isosorbide Mononitrate [Imdur] 120 mg PO DAILY #60 tablet 01/10/18 Metoprolol Tartrate [Lopressor (beta sidney)] 100 mg PO BID #60 tablet 01/10/18 Pravastatin [Pravachol] 20 mg PO DAILY #30 tablet 01/10/18 Sacubitril/Valsartan 97-103 mg [Entresto 97 mg-103 mg Tablet] 1 each PO BID 01/10/18 Warfarin [Coumadin] 4 mg PO DAILY 01/10/18 The following prescriptions were given: Clopidogrel Bisulfate [Plavix] 75 mg PO DAILY #30 tablet Isosorbide Mononitrate [Imdur] 120 mg PO DAILY #60 tablet Pravastatin [Pravachol] 20 mg PO DAILY #30 tablet Metoprolol Tartrate [Lopressor (beta sidney)] 100 mg PO BID #60 tablet Primary Care Physician: Kyle Silva Chi, MD [Primary Care Provider] - Please follow up with your Primary Care Physician in: tomorrow Test Results: Test results from this visit will be discussed in further detail at your follow- up appointment, if applicable.
[2018-01-10] MEDS: Clopidogrel Bisulfate 300 MG Tablet PO (13:50)
--- NOTE | 2018-01-11 09:59 | DS.PCM_ITS ---
Discharge Date and Diagnosis Date of Admission: 01/10/18 Date of Discharge: 01/10/18 - Primary Discharge Diagnosis #1 non-ST elevation myocardial infarction #2 type 2 diabetes-uncontrolled #3 ventricular tachycardia-nonsustained #4 atrial fibrillation-permanent #5 noncompliance with medical regimen #6 chronic kidney disease stage III secondary to type 2 diabetes #7 hypertension - Secondary Discharge Diagnosis Chronic Problems Hypothyroidism (Chronic) Afib (Chronic) HTN (hypertension) (Chronic) Hx of CABG (Chronic) DM2 (diabetes mellitus, type 2) (Chronic) CAD (coronary artery disease) (Chronic) Hospital Course and Treatment Operations: None Procedures: None Summary of Care Provided: The patient is a 77 year old M was seen in the emergency room with a chief complaint of chest pain. EKG was performed in the emergency room which showed atrial fibrillation which was a chronic rhythm, patient had slight elevation of his troponin, EKG showed no evidence of ischemic changes. Chest x-ray was read out as indicating congestive heart failure, this was not felt to be present as the patient had no complaints of shortness of breath and his pulse ox was normal on room air. Patient was placed and observation status on PCU, patient demanded to be discharged on 01/10/18-I had a conversation with his and the patient on that date and ask him to wait until the second set of cardiac enzymes were obtained, this that showed a marked elevation of troponin indicating a non- STEMI. Patient also had a run of nonsustained ventricular tachycardia which was asymptomatic and brief. I again talked with the patient and the patient's , patient demanded to be discharged and he was aware that he was medically unstable for discharge and he was made to sign out AMA. was upset about this but she stated that her made the decision and that she would not interfere with his decision. I contacted his PCP- Dr. Silva- who was aware of the situation and requested the patient be seen in his office on 01/11/18. Patient was instructed to do so. Patient's medications were adjusted at the time of discharge, I felt it prudent to place him on Plavix-he agreed to take this, I also changed up his M door and increased it to 120 mg daily and discontinued his atenolol due to the fact he had a previous echocardiogram which showed poor ejection fraction I felt it more proper to place him on metoprolol which she agreed to take. Finally patient agreed to take a small dose of a statin-he had muscle pain on simvastatin before, I placed him on pravastatin at the time of discharge. Patient was instructed not to drive until he was seen by Dr. Silva. On 01/10/18, patient was seen and examined: On examination he appeared in good health and spirits. Vital signs as documented. Skin warm and dry and without overt rashes. Neck without JVD. Lungs clear. Heart exam notable for irregular rhythm, normal sounds and absence of murmurs, rubs or gallops. Abdomen unremarkable and without evidence of organomegaly, masses, or abdominal aortic enlargement. Extremities nonedematous. Neuro: Cranial nerves II through XII are grossly intact, no focal motor deficits were noted. Psych: Patient is alert and oriented x3, he does not appear anxious or depressed, patient understands instructions and options to stay in the hospital and agrees to be discharged AGAINST MEDICAL ADVICE. On 01/10/18, patient was seen and examined and discharged AGAINST MEDICAL ADVICE. - Physical Exam Vital Signs Temp Pulse Resp BP Pulse Ox 98.8 F 67 18 138/84 H 95 01/10/18 13:15 01/10/18 13:15 01/10/18 13:15 01/10/18 13:15 01/10/18 13:15 Oxygen Flow Rate (L/min) 2 Oxygen Delivery Method Room Air Weight: 83.3 kg Body Mass Index (BMI) 28.8 Finger Stick Blood Glucose 27 Laboratory Tests Past 24 Hrs 01/10/18 12:20 Troponin I 5.200 H* Discharge Activity: - - limit exertional activity until seen by Dr. Silva Weight Bearing Status: Full weight bearing Home Medications: Medications to take at Discharge Aspirin E.C. [Ecotrin] 81 mg PO DAILY@0800 #30 tablet 12/10/17 Levothyroxine [Synthroid] 50 mcg PO DAILY@0600 #30 tablet 12/10/17 Cholecalciferol (VIT D3) [Vitamin D3] 1,000 unit PO DAILY 01/10/18 Clopidogrel Bisulfate [Plavix] 75 mg PO DAILY #30 tablet 01/10/18 Furosemide [Lasix] 80 mg PO BID 01/10/18 Insulin Aspart [Novolog Flexpen] 15 unit SQ TIDCM 01/10/18 Insulin Glargine [Lantus SoloStar Pen] 40 units SC BREAKFAST 01/10/18 Isosorbide Mononitrate [Imdur] 120 mg PO DAILY #60 tablet 01/10/18 Metoprolol Tartrate [Lopressor (beta vitor)] 100 mg PO BID #60 tablet 01/10/18 Pravastatin [Pravachol] 20 mg PO DAILY #30 tablet 01/10/18 Sacubitril/Valsartan 97-103 mg [Entresto 97 mg-103 mg Tablet] 1 each PO BID 01/10/18 Warfarin [Coumadin] 4 mg PO DAILY 01/10/18 Following Prescrptions Were Given to Patient: Clopidogrel Bisulfate [Plavix] 75 mg PO DAILY #30 tablet Isosorbide Mononitrate [Imdur] 120 mg PO DAILY #60 tablet Pravastatin [Pravachol] 20 mg PO DAILY #30 tablet Metoprolol Tartrate [Lopressor (beta vitor)] 100 mg PO BID #60 tablet Primary Care Physician: Kyle Silva Chi, MD [Primary Care Provider] - Please follow up with your Primary Care Physician in: tomorrow Disposition: Against Medical Advice Minutes spent on discharge:: 30 Patient Condition:: Guarded Medical Necessity - Tobacco Use Smoking Status: Never smoker Meaningful Use Info Meaningful Use Diagnoses (Choose all that apply): AMI - AMI Aspirin given w/in 24hrs of arrival?: Yes ASA at discharge?: Yes Statins at discharge?: Yes Ildefonso/ARB at discharge?: Yes Beta Vitor at discharge?: Yes Done w/ Acute NC measure.: Yes Code Visit OBSV E&M: 57721 Observ/hosp same date L3
== END 2018-01-10 13:29 | disposition left against medical advice (07) ==
LOC: ED 04:06 → PCU 07:15
PROVIDERS: Admitting Provider Hospitalist; Emergency Provider Emergency Medicine; Family Provider Family Medicine Geriatric Medicine; PCP Family Medicine Geriatric Medicine; Visit Provider Internal Medicine
DX: I21.4 Non-ST elevation (NSTEMI) myocardial infarction (principal); I25.10 Atherosclerotic heart disease of native coronary artery without angina pectoris; E11.22 Type 2 diabetes mellitus with diabetic chronic kidney disease; N18.3 Chronic kidney disease, stage 3 (moderate); I12.9 Hypertensive chronic kidney disease with stage 1 through stage 4 chronic kidney disease, or unspecified chronic kidney disease; I48.91 Unspecified atrial fibrillation; E03.9 Hypothyroidism, unspecified; Z95.1 Presence of aortocoronary bypass graft; Z79.899 Other long term (current) drug therapy; Z79.4 Long term (current) use of insulin; Z79.82 Long term (current) use of aspirin; Z79.01 Long term (current) use of anticoagulants
CPT/HCPCS: 71045; 80048; 82962; 84484; 85025; 85610; 93005; 97802; 99218; 99284; A4216; G0378

== ENCOUNTER → 2018-01-11 12:01 | Outpatient (CLI) | payer MEDICARE, SELFPAY ==
[2018-01-10 07:37] VITALS: BMI 28.8
[2018-01-11 14:01] LABS: Anion Gap 6 (5-15); BUN 16 mg/dL (7-18); BUN/Creat Ratio 9.8 RATIO (10-20); Calcium,Total 8.5 mg/dL (8.5-10.1); Chloride 101 mmol/L (98-107); Creatinine, Serum 1.63 mg/dL (0.70-1.30); EST Glomerular Filtration Rate 44 mL/min (>60); Est Glom Filt Rate - Afr Amer 53 mL/min (>60); Glucose 170 mg/dL (74-106); Potassium 4.2 mmol/L (3.5-5.1); Sodium Level 136 mmol/L (136-145)
[2018-01-11 14:03] LABS: International Normalized Ratio 2.1; Prothrombin Time (Protime)PT. 23.2 SECONDS (11.7-14.9)
== END ==
PROVIDERS: Family Provider Family Medicine Geriatric Medicine; PCP Family Medicine Geriatric Medicine; Referring Provider Family Medicine Geriatric Medicine; Visit Provider Family Medicine Geriatric Medicine
DX: I48.0 Paroxysmal atrial fibrillation (principal); I50.23 Acute on chronic systolic (congestive) heart failure
CPT/HCPCS: 36415; 80048; 85610

== ENCOUNTER → 2018-01-24 11:44 | Outpatient (CLI) | payer MEDICARE, SELFPAY ==
[2018-01-10 07:37] VITALS: BMI 28.8
[2018-01-24 12:46] LABS: Absolute Lymphocyte Count 2.21 X10^3/ul (0.83-4.51); Absolute Neutrophil Count 3.3 X10^3/uL (2.0-7.7); Basophil# 0.06 X10^3/uL; Basophil% 0.9 % (0-1); Eosinophil# 0.35 X10^3/uL; Eosinophils% 5.1 % (0-5); Hematocrit 41.5 % (40-54); Hemoglobin 13.8 g/dl (13.0-16.5); Lymphocyte # 2.21 X10^3/ul (4.0); Lymphocyte % 32.1 % (19-41); Mean Corp Hgb Conc 33.3 g/gl (32-36); Mean Corpuscular Hgb 30.1 pg (27.0-32.0); Mean Corpuscular Volume 90.4 fL (80-94); Mean Platelet Vol. 10.9 fl (6.2-12.0); Monocyte# 0.94 X10^3/uL; Monocyte% 13.7 % (0-10); Neutrophil # 3.31 X10^3/uL (2.7-7.7); Neutrophil % 48.1 % (47-70); Platelet Count 288 K/mm3 (150-450); RBC Distribution Width CV 13.7 % (11.6-14.6); RBC Distribution Width SD 45.1 fl (35.1-43.9); Red Blood Count 4.59 M/mm3 (4.6-6.2); White Blood Count 6.9 K/mm3 (4.4-11.0)
[2018-01-24 12:47] LABS: POSITIVE COUNT NO; POSITIVE DIFFERENTIAL NO; POSITIVE MORPHOLOGY NO
[2018-01-24 13:18] LABS: BUN 27 mg/dL (7-18); Creatinine, Serum 1.99 mg/dL (0.70-1.30); EST Glomerular Filtration Rate 35 mL/min (>60); Glucose 81 mg/dL (74-106)
[2018-01-24 13:19] LABS: ALB/GLOB Ratio 0.8 RATIO (0.9-2.4); AST(SGOT) 18 U/L (15-37); Alanine Aminotransfer ALT/SGPT 22 U/L (16-61); Albumin, Serum 3.3 g/dL (3.2-5.0); Alkaline Phosphatase 84 U/L (45-117); Anion Gap 7 (5-15); BUN/Creat Ratio 13.6 RATIO (10-20); Chloride 98 mmol/L (98-107); Est Glom Filt Rate - Afr Amer 42 mL/min (>60); Globulin 4.2 g/dL (2.2-4.2); Potassium 3.6 mmol/L (3.5-5.1); Protein, Total 7.5 g/dL (6.4-8.2); Sodium Level 139 mmol/L (136-145); Thyroid Stim Hormone (TSH) 5.86 uIU/mL (0.358-3.74)
[2018-01-24 13:20] LABS: Vitamin D,25 Hydroxy 49.4 ng/mL (29.95-100.01)
--- OUTSIDE RECORDS SUMMARY | 2018-03-21 14:57 | XMS RPT_ITS ---
:1940 Author Organization [place] Support Name Relationship Address Phone MARCOJEEVAN Unavailable Unavailable + POPEYE ALEJANDRA Unavailable Unavailable + ALEJANDRAJEEVAN Unavailable [address] + [place] [address] POPEYE ALEJANDRA Unavailable [address] + [place] [address] R Unavailable Unavailable Unavailable JEEVAN ALEJANDRA Unavailable [address] + [place] [address] POPEYE ALEJANDRA Unavailable [address] + [place] [address] R Unavailable Unavailable Unavailable JEEVAN ALEJANDRA Unavailable [address] + [place] [address] POPEYE ALEJANDRA Unavailable [address] + [place] [address] R Unavailable Unavailable Unavailable JEEVAN ALEJANDRA Unavailable [address] + [place] [address] POPEYE ALEJANDRA Unavailable [address] + [place] [address] R Unavailable Unavailable Unavailable MARCO OLIVE Unavailable [address] + [place] [address] POPEYE ALEJANDRA Unavailable [address] + [place] [address] R Unavailable Unavailable Unavailable MARCO OLIVE Unavailable [address] + [place] [address] POPEYE ALEJANDRA Unavailable [address] + [place] [address] R Unavailable Unavailable Unavailable ALEJANDRA, OLIVE Unavailable [address] + [place] [address] ALEJANDRA, POPEYE Unavailable [address] + [place] [address] R Unavailable Unavailable Unavailable ALEJANDRA, OLIVE Unavailable [address] + [place] [address] MARCO, POPEYE Unavailable [address] + [place] [address] R Unavailable Unavailable Unavailable ALEJANDRA, OLIVE Unavailable [address] + [place] [address] MARCO, POPEYE Unavailable [address] + [place] [address] R Unavailable Unavailable Unavailable ALEJANDRA, OLIVE Unavailable [address] + [place] [address] MARCO, POPEYE Unavailable [address] + [place] [address] R Unavailable Unavailable Unavailable ALEJANDRA, OLIVE Unavailable [address] + [place] [address] MARCO, POPEYE Unavailable [address] + [place] [address] R Unavailable Unavailable Unavailable ALEJANDRA, OLIVE Unavailable [address] + [place] [address] MARCO, POPEYE Unavailable [address] + [place] [address] R Unavailable Unavailable Unavailable ALEJANDRA, OLIVE Unavailable [address] + [place] [address] MARCO, POPEYE Unavailable [address] + [place] [address] R Unavailable Unavailable Unavailable ALEJANDRA, OLIVE Unavailable [address] + [place] [address] MARCO, POPEYE Unavailable [address] + [place] [address] R Unavailable Unavailable Unavailable ALEJANDRA, OLIVE Unavailable [address] + [place] [address] MARCO, POPEYE Unavailable [address] + [place] [address] R Unavailable Unavailable Unavailable JEEVAN ALEJANDRA Unavailable [address] + [place] [address] POPEYE ALEJANDRA Unavailable [address] + [place] [address] R Unavailable Unavailable Unavailable JEEVAN ALEJANDRA Unavailable [address] + [place] [address] POPEYE ALEJANDRA Unavailable [address] + [place] [address] R Unavailable Unavailable Unavailable JEEVAN ALEJANDRA Unavailable [address] + [place] [address] POPEYE ALEJANDRA Unavailable [address] + [place] [address] R Unavailable Unavailable Unavailable JEEVAN ALEJANDRA Unavailable [address] + [place] [address] ALEJANDRAJULITAPOPEYE Unavailable [address] + [place] [address] R Unavailable Unavailable Unavailable Care Team Providers Name Role Phone MACIE VILLAVICENCIO MD Admitting Unavailable MACIE VILLAVICENCIO MD Attending Unavailable TAMEKA MONTAGUE, DR. LERNER Consulting Unavailable RICARDO MONTAGUE, DR. RODRIGUESDIONNE Primary Care Unavailable Tong Davis Attending Unavailable Bryson Najera Referring Unavailable Jose J Lawrence Attending Unavailable Ricardo, Kyle Chi Primary Care Unavailable Ricardo, Kyle Chi Primary Care Unavailable Koram, Phylicia Digna Admitting Unavailable Paintsil, Winona Attending Unavailable Al, Rayna Consulting Unavailable Koram, Phylicia Digna Admitting Unavailable Koram, Phylicia Digna Attending Unavailable Ricardo, Kyle Chi Primary Care Unavailable Koram, Phylicia Digna Consulting Unavailable Koram, Phylicia Digna Admitting Unavailable Al, Rayna Attending Unavailable Ricardo, Kyle Chi Primary Care Unavailable Al, Rayna Consulting Unavailable Paintsil, Winona Consulting Unavailable Koram, Phylicia Digna Admitting Unavailable Al Rayna Attending Unavailable Ricardo, Kyle Chi Primary Care Unavailable Al, Ryana Consulting Unavailable Paintsil, Winona Consulting Unavailable Koram, Phylicia Digna Admitting Unavailable Paintsil, Winona Attending Unavailable Ricardo, Kyle Chi Primary Care Unavailable Al, Rayna Consulting Unavailable Paintsil, Winona Consulting Unavailable Koram, Phylicia Digna Admitting Unavailable Paintsil, Winona Attending Unavailable Ricardo, Kyle Chi Primary Care Unavailable Al, Rayna Consulting Unavailable Paintsil, Winona Consulting Unavailable Ricardo, Kyle Chi Attending Unavailable Ricardo, Kyle Chi Primary Care Unavailable Ricardo, Kyle Chi Attending Unavailable Ricardo, Kyle Chi Referring Unavailable Ricardo, Kyle Chi Primary Care Unavailable Ruel Brink Attending Unavailable Koram, Phylicia Digna Referring Unavailable Susan, Tong Attending Unavailable Paintsil, Winona Referring Unavailable Ricardo, Kyle Chi Attending Unavailable Ricardo, Kyle Chi Primary Care Unavailable Ricardo, Kyle Chi Primary Care Unavailable AggisellpongBrad Admitting Unavailable Adam Victor Attending Unavailable YanethpongBrad Admitting Unavailable Brad Bermudez Attending Unavailable Ricardo, Kyle Chi Primary Care Unavailable Adam Victor Consulting Unavailable AgyepongBrad Admitting Unavailable MarilynkyAdam Attending Unavailable Ricardo, Kyle Chi Primary Care Unavailable TerfelibertokyAdam Consulting Unavailable Ricardo, Kyle Chi Attending Unavailable Ricardo, Kyle Chi Referring Unavailable Ricardo, Kyle Chi Primary Care Unavailable Ricardo, Kyle Chi Attending Unavailable Ricardo, Kyle Chi Primary Care Unavailable Ricardo, Kyle Chi Attending Unavailable Ricardo, Kyle Chi Primary Care Unavailable PROBLEMS PROBLEMS DATE TYPE CONDITION / CODE ATTENDING STATUS SOURCE 01/11/2018 Unknown I48.0 - Paroxysmal Ricardo, Kyle Chi Active [facility] atrial fibrillation / Community I48.0(ICD-10) Hospital Repository 01/11/2018 Unknown I50.23 - 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, 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 Community (congestive) heart Hospital failure / Repository I50.23(ICD-10) 02/08/2018 Unknown R07.9 - Chest pain, Susan, Oelrichs Active [facility] unspecified / Community R07.9(ICD-10) Hospital Repository 02/08/2018 Unknown 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, 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 / I25.10(ICD-10) 02/08/2018 Unknown I48.91 - Unspecified Susan, Tong Active [facility] atrial fibrillation / Community I48.91(ICD-10) Hospital Repository 12/27/2017 Unknown E03.9 - Ricardo, Kyle Chi Active [facility] Hypothyroidism, Community unspecified / Hospital E03.9(ICD-10) Repository 12/27/2017 Unknown R94.31 - Abnormal [place], Active [facility] electrocardiogram [facility] [ECG] [EKG] / Hospital R94.31(ICD-10) Repository PROCEDURES PROCEDURES No Procedure Records FoundRESULTS RESULTS TROPI Collected: 02/12/2018 Status: F Source: [place] 2:49 PM [facility] [place] REPOSITORY TYPE CODE TESTS RESULT OUT OF REFERENCE UNITS RANGE LAB TROPI(LOINC 0.000-0.040 ng/mL ) High Troponin I 3.580 Result Comment: Troponin I reference ranges (11/03/13): 0.00-0.040 ng/mL Negative and non-diagnostic. >0.040 ng/mL Consistent with cardiac damage, increased clinical risk and possibility of myocardial infarction. Serial measurements, a rise & fall in test results, clinical history, appropriate symptoms and/or ECG changes may help assess possibility of GA. *Other non-acute coronary syndrome conditions such as CHF, myocarditis, pulmonary emboli, sepsis and cardiac surgery could result in myocardial damage and increased troponin levels. Performed By: #### TROPI #### [place] [address] TROPI Collected: 02/12/2018 Status: F Source: [employer] 12:34 PM [facility] [place] REPOSITORY TYPE CODE TESTS RESULT OUT OF REFERENCE UNITS RANGE LAB TROPI(LOINC 0.000-0.040 ng/mL ) High Troponin I 2.820 Result Comment: Troponin I reference ranges (11/03/13): 0.00-0.040 ng/mL Negative and non-diagnostic. >0.040 ng/mL Consistent with cardiac damage, increased clinical risk and possibility of myocardial infarction. Serial measurements, a rise & fall in test results, clinical history, appropriate symptoms and/or ECG changes may help assess possibility of GA. *Other non-acute coronary syndrome conditions such as CHF, myocarditis, pulmonary emboli, sepsis and cardiac surgery could result in myocardial damage and increased troponin levels. Performed By: #### TROPI #### [place] [id number] CAION Collected: 02/12/2018 Status: F Source: [facility] 9:18 AM [facility] [place] REPOSITORY TYPE CODE TESTS RESULT OUT OF REFERENCE UNITS RANGE LAB CAION(LOINC 1.12-1.32 mmol/L ) Low Calcium 1.07 Ionized Performed By: #### NURIA, CMP, A1C, APTT, PHOS, MG, LIPID, PBNP, PRO, GFR, CAION, TSH, ANEU, TROPI, CBC #### [address] [address] CBC Collected: 02/12/2018 Status: F Source: [facility] 9:18 AM [facility] [place] REPOSITORY TYPE CODE TESTS RESULT OUT OF REFERENCE UNITS RANGE LAB WBC(LOINC) 4.50-10.80 10 3/mcL WBC 6.80 LAB RBCCT(LOINC 4.50-6.00 10 6/mcL ) Low RBC 4.34 LAB HGB(LOINC) 13.0-17.5 G/dL Hgb 13.0 LAB HCT(LOINC) 40.0-52.0 % Low Hct 39.2 LAB MCV(LOINC) 81.0-100.0 fL MCV 90.2 LAB MCH(LOINC) 27.0-33.0 pg MCH 30.0 LAB MCHC(LOINC) 32.0-36.0 G/dL MCHC 33.2 LAB RDW(LOINC) 11.5-15.5 % RDW 14.3 LAB PLT(LOINC) 150-450 10 3/mcL Platelet 235 LAB MPV(LOINC) 6.4-10.5 fL MPV 8.7 Performed By: #### NURIA, CMP, A1C, APTT, PHOS, MG, LIPID, PBNP, PRO, GFR, CAION, TSH, ANEU, TROPI, CBC #### [address] [address] .AUTO DIFF Collected: 02/12/2018 Status: F Source: [facility] 9:18 AM [facility] [place] REPOSITORY TYPE CODE TESTS RESULT OUT OF REFERENCE UNITS RANGE LAB STAR(LOINC) 50.0-75.0 % Neutrophil % 64.4 LAB LYM(LOINC) 20.0-40.0 % Lymphocyte % 20.8 LAB MON(LOINC) 2.0-13.0 % Monocyte % 11.7 LAB EO(LOINC) 0.0-6.0 % Eosinophil % 2.2 LAB BAS(LOINC) 0.0-2.5 % Basophil % 0.9 LAB ABLYM(LOIN 0.90-4.32 10 3/mcL C) Lymphocyte, 1.40 Absolute LAB SUZIE(LOINC 0.09-1.40 10 3/mcL ) Monocyte, 0.80 Absolute LAB AEOS(LOINC 0.00-0.65 10 3/mcL ) Eosinophil, 0.10 Absolute LAB ABAS(LOINC 0.00-0.27 10 3/mcL ) Basophil, 0.10 Absolute Performed By: #### ADIFF, CMP, A1C, APTT, PHOS, MG, LIPID, PBNP, PRO, GFR, CAION, TSH, ANEU, TROPI, CBC #### [address] [address] .NEUABS Collected: 02/12/2018 Status: F Source: [facility] 9:18 AM [facility] [place] REPOSITORY TYPE CODE TESTS RESULT OUT OF REFERENCE UNITS RANGE LAB ANEU(LOINC) 2.25-8.10 10 3/mcL Neutrophil, 4.40 Absolute Performed By: #### ADIFF, CMP, A1C, APTT, PHOS, MG, LIPID, PBNP, PRO, GFR, CAION, TSH, ANEU, TROPI, CBC #### [address] [address] MG Collected: 02/12/2018 Status: F Source: [facility] 9:18 AM [facility] [place] REPOSITORY TYPE CODE TESTS RESULT OUT OF REFERENCE UNITS RANGE LAB MG(LOINC) 1.6-2.4 mg/dL Magnesium Lvl 2.4 Performed By: #### ADIFF, CMP, A1C, APTT, PHOS, MG, LIPID, PBNP, PRO, GFR, CAION, TSH, ANEU, TROPI, CBC #### [address] [address] PHOS Collected: 02/12/2018 Status: F Source: [facility] 9:18 AM [facility] [place] REPOSITORY TYPE CODE TESTS RESULT OUT OF REFERENCE UNITS RANGE LAB PHOS(LOINC 2.5-4.5 mg/dL ) Low Phosphorus 2.0 Performed By: #### ADIFF, CMP, A1C, APTT, PHOS, MG, LIPID, PBNP, PRO, GFR, CAION, TSH, ANEU, TROPI, CBC #### [address] [address] CMP Collected: 02/12/2018 Status: F Source: [facility] 9:18 AM [facility] REPOSIT[facility] TYPE CODE TESTS RESULT OUT OF REFERENCE UNITS RANGE LAB GLU(LOINC) 82-115 mg/dL Glucose High Level 210 LAB NA(LOINC) 136-145 mEq/L Sodium Level 138 LAB K(LOINC) 3.5-5.0 mEq/L Potassium Level 3.8 LAB CL(LOINC) 98-110 mEq/L Chloride 101 LAB CO2(LOINC) 22-32 mEq/L CO2 29 LAB EBAL(LOINC 4.0-15.0 mEq/L ) Electrolyte Balance 8.0 LAB BUN(LOINC) 8.0-22.0 mg/dL BUN High 30.0 LAB CRE(LOINC) 0.60-1.40 mg/dL Creatinine High Lvl (s) 1.63 LAB BC(LOINC) 10.0-22.0 ratio BUN/Creatinine 18.4 Ratio LAB CA(LOINC) 8.4-10.1 mg/dL Calcium Lvl 8.5 LAB PROT(LOINC 6.0-8.5 G/dL ) Total Protein 7.1 LAB ALB(LOINC) 3.2-4.8 G/dL Albumin Level 3.3 LAB GLB(LOINC) 1.5-3.8 G/dL Globulin 3.8 LAB AG(LOINC) 0.9-1.6 ratio A/G Ratio 0.9 LAB BILT(LOINC 0.2-1.2 mg/dL ) Bili Total 0.8 LAB AP(LOINC) 38-126 U/L Alk Phos 92 LAB AST(LOINC) 8-34 U/L AST/SGOT 23 LAB ALT(LOINC) 12-55 U/L ALT/SGPT 24 Performed By: #### BEREKETIFF, CMP, A1C, APTT, PHOS, MG, LIPID, PBNP, PRO, GFR, CAION, TSH, ANEU, TROPI, CBC #### [address] [address] PBNP Collected: 02/12/2018 Status: F Source: [facility] 9:18 AM [facility] [place] REPOSITORY TYPE CODE TESTS RESULT OUT OF REFERENCE UNITS RANGE LAB PBNP(LOINC) 0-1800 pg/mL High [place] [address] proBNP Result Comment: NT-proBNP results of less than 300 pg/mL effectively rules out acute congestive heart failure with 99% negative predictive value. Performed By: #### ADIFF, CMP, A1C, APTT, PHOS, MG, LIPID, PBNP, PRO, GFR, CAION, TSH, ANEU, TROPI, CBC #### [place] [address] .GFR Collected: 02/12/2018 Status: F Source: [facility] 9:18 AM [facility] [place] REPOSITORY TYPE CODE TESTS RESULT OUT OF REFERENCE UNITS RANGE LAB GFRAA(LOINC ml/min/1.73 ) sqm GFR 50 [place] Result Comment: GFR Population mean for , Non- Americans Ages 20-29 = 116 mL/min/1.73 sq.m. Ages 30-39 = 107 mL/min/1.73 sq.m. Ages 40-49 = 99 mL/min/1.73 sq.m. Ages 50-59 = 93 mL/min/1.73 sq.m. Ages 60-69 = 85 mL/min/1.73 sq.m. Ages 70+ = 75 mL/min/1.73 sq.m. Chronic Kidney Disease: Less than 60 mL/min/1.73 square meters End Stage Renal Disease: Less than 15 mL/min/1.73 square meters LAB GFRNO(LOINC) ml/min/1.73sqm GFR Non- 41 Result Comment: GFR Population mean for , Non- Americans Ages 20-29 = 116 mL/min/1.73 sq.m. Ages 30-39 = 107 mL/min/1.73 sq.m. Ages 40-49 = 99 mL/min/1.73 sq.m. Ages 50-59 = 93 mL/min/1.73 sq.m. Ages 60-69 = 85 mL/min/1.73 sq.m. Ages 70+ = 75 mL/min/1.73 sq.m. Chronic Kidney Disease: Less than 60 mL/min/1.73 square meters End Stage Renal Disease: Less than 15 mL/min/1.73 square meters Performed By: #### ADIFF, CMP, A1C, APTT, PHOS, MG, LIPID, PBNP, PRO, GFR, CAION, TSH, ANEU, TROPI, CBC #### [address] [address] TROPI Collected: 02/12/2018 Status: F Source: [facility] 9:18 AM [facility] [place] REPOSITORY TYPE CODE TESTS RESULT OUT OF REFERENCE UNITS RANGE LAB TROPI(LOINC 0.000-0.040 ng/mL ) High Troponin I 1.400 Result Comment: Troponin I reference ranges (11/03/13): 0.00-0.040 ng/mL Negative and non-diagnostic. >0.040 ng/mL Consistent with cardiac damage, increased clinical risk and possibility of myocardial infarction. Serial measurements, a rise & fall in test results, clinical history, appropriate symptoms and/or ECG changes may help assess possibility of GA. *Other non-acute coronary syndrome conditions such as CHF, myocarditis, pulmonary emboli, sepsis and cardiac surgery could result in myocardial damage and increased troponin levels. Performed By: #### ADIFF, CMP, A1C, APTT, PHOS, MG, LIPID, PBNP, PRO, GFR, CAION, TSH, ANEU, TROPI, CBC #### [address] [address] TSH Collected: 02/12/2018 Status: F Source: [facility] 9:18 [facility] REPOSITORY TYPE CODE TESTS RESULT OUT OF RANGE REFERENCE UNITS LAB TSH(LOINC) 0.360-3.740 mcIU/mL High TSH 4.910 Result Comment: Please note as of 09/09/16 new pediatric reference intervals were added for this test. Performed By: #### ADIFF, CMP, A1C, APTT, PHOS, MG, LIPID, PBNP, PRO, GFR, CAION, TSH, ANEU, TROPI, CBC #### [address] [address] APTT Collected: 02/12/2018 Status: F Source: [facility] 9:18 AM [facility] [place] REPOSITORY TYPE CODE TESTS RESULT OUT OF REFERENCE UNITS RANGE LAB PDOSE(LOIN C) Heparin dose Coumadin PO (APTT) LAB APTT0(LOIN 25.0-35.0 seconds C) High APTT 52.0 Result Comment: For Heparin anticoagulation therapy, the recommended therapeutic range is: 54-77 seconds (APTT Correlation with Anti-Xa therapeutic range of 0.3-0.7 units/ml). PLEASE REFERENCE THE PHARMACY PROTOCOL FOR DOSING. Performed By: #### ADIFF, CMP, A1C, APTT, PHOS, MG, LIPID, PBNP, PRO, GFR, CAION, TSH, ANEU, TROPI, CBC #### [place] [id number] [place] [address] PRO Collected: 02/12/2018 Status: F Source: [facility] 9:18 AM [facility] [place] REPOSITORY TYPE CODE TESTS RESULT OUT OF REFERENCE UNITS RANGE LAB PT(LOINC) 9.0-14.6 seconds High Protime 34.1 Result Comment: Effective 09/10/07, Protime results may be affected by some antibiotics (i.e. Ciprofloxacin, Azithromycin, Bactrim) which may potentiate the action of oral anticoagulants, with further increases in Protime/INR. LAB INR(LOINC) ratio PT International Ratio 2.9 Result Comment: The [place] [employer] (CHEST, 1992, 102:312S-25S) recommended therapeutic range for oral anticoagulant therapy is: LOW RISK: Prophylaxis of venous thrombosis INR: 2.0-3.0 Treatment of pulmonary embolism 2.0-3.0 Prevention of systemic embolism 2.0-3.0 HIGH RISK: Mechanical prosthetic valves 2.5-3.5 Performed By: #### ADIFF, CMP, A1C, APTT, PHOS, MG, LIPID, PBNP, PRO, GFR, CAION, TSH, ANEU, TROPI, CBC #### [address] [address] LIPID Collected: 02/12/2018 Status: F Source: [facility] 9:18 AM [facility] [place] REPOSITORY TYPE CODE TESTS RESULT OUT OF REFERENCE UNITS RANGE LAB CHOL(LOINC 50-199 mg/dL ) Cholesterol High 208 Result Comment: Cholesterol Reference Interval: Less than 200 Desirable 200-239 Borderline high risk 240 and above High risk LAB TRIG(LOINC) 3-149 mg/dL Triglycerides 117 Result Comment: Triglyceride Reference Interval: Less than 150 Normal 150-199 Borderline high risk 200-499 High risk 500 or higher Very high risk LAB HD(LOINC) 40-59 mg/dL HDL Cholesterol 51 Result Comment: HDL Reference Interval: Less than 40 Low - high risk 60 or above Optimal/lowers risk LAB LDL(LOINC) 0-129 mg/dL LDL High Cholesterol 134 Result Comment: LDL is a calculated result and requires a 12-hr fast. LDL Reference Interval: Less than 100 Optimal 100-129 Near or above optimal 130-159 Borderline high risk 160-189 High risk 190 and above Very high risk Performed By: #### ADIFF, CMP, A1C, APTT, PHOS, MG, LIPID, PBNP, PRO, GFR, CAION, TSH, ANEU, TROPI, CBC #### [address] [address] A1C Collected: 02/12/2018 Status: F Source: [facility] 9:18 AM [facility] [place] REPOSITORY TYPE CODE TESTS RESULT OUT OF RANGE REFERENCE UNITS LAB A1C(LOINC) 4.0-6.0 % High Hgb A1c 10.5 Performed By: #### ADIFF, CMP, A1C, APTT, PHOS, MG, LIPID, PBNP, PRO, GFR, CAION, TSH, ANEU, TROPI, CBC #### [place] [id number] BEDSIDE GLUCOSE Collected: 02/12/2018 Status: F Source: [place] 5:45 AM [facility] REPOSITORY TYPE CODE TESTS RESULT OUT OF REFERENCE UNITS RANGE LAB L501.080 70-110 mg/dL High alert BEDSIDE GLU 485 Result Comment: MANAGEMENT OF PATIENT CARE PER NURSING PROTOCOL Performed By: #### L501.080 #### [facility] Point of Care [address] [place] [address] CHEST 1 VIEW Observed: 02/12/2018 Status: F Source: [place] (PORT[place]) 3:48 AM [facility] REPOSITORY [facility] Imaging Services [address] [place] [address] Chest 1 View (Portable) MR#: [id number] Acct: [id number] Name: MARCOEDMUNDO Raghavendra Rep #: [id number] : 1940 M 77 From: Mic Almaguer PCP: Ricardo NOWAK,Kyle Chi Status: PRE ER Study: Chest 1 View (Portable) Date of Exam: 02/12/18 Exam# [id number] Ordering Dr: Jose J Lawrence DO STUDY: X-RAY CHEST REASON FOR EXAM: Male, 77 years old. Trauma TECHNIQUE: Frontal view COMPARISON: 01/10/2018 FINDINGS: The lungs are expanded. There are chronic fibrotic changes. There are NO acute infiltrates. There is NO pleural effusion or pneumothorax. The heart is borderline enlarged. There has been open heart surgery. Normal visualized pulmonary arteries. There is calcified plaque in the thoracic aorta. Normal visualized thoracic spine. Normal visualized ribs, clavicles, and shoulders. There is no demonstrated abnormality of the visualized soft tissue structures of the upper abdomen. RAD/Chest 1 View (Portable) IMPRESSION: The lungs are expanded. There are chronic fibrotic changes. There are NO acute infiltrates. There is NO pleural effusion or pneumothorax. The heart is borderline enlarged. Electronically Signed: Mic Almaguer MD at 4:15 EST , Service support , CC: Jose J Lawrence DO; Kyle Silva MD Press Tender Smoke Signal: Signed CBC W/DIFF, AUTOMATED Collected: 02/12/2018 Status: F Source: [place] 3:15 AM [facility] REPOSITORY TYPE CODE TESTS RESULT OUT OF RANGE REFERENCE UNITS LAB L100.1000 4.4-11.0 K/mm3 Normal WBC 6.2 LAB L100.1200 4.6-6.2 M/mm3 Low RBC 4.30 LAB L100.1300 13.0-16.5 g/dl Low HGB 12.9 LAB L100.1400 40-54 % Low HCT 38.2 LAB L100.1500 80-94 fL Normal MCV 88.8 LAB L100.1600 27.0-32.0 pg Normal MCH 30.0 LAB L100.1700 32-36 g/gl Normal MCHC 33.8 LAB L100.1810 11.6-14.6 % Normal RDW CV 13.9 LAB L100.1820 35.1-43.9 fl High RDW SD 45.4 LAB L100.1900 150-450 K/mm3 Normal PLT 257 LAB L100.2000 6.2-12.0 fl Normal MPV 10.7 LAB L100.2100 47-70 % Normal NEUT% 49.6 LAB L100.2200 19-41 % Normal LY% 35.4 LAB L100.2300 0-10 % Normal MONO% 10.0 LAB L100.2400 0-5 % Normal EO% 4.2 LAB L100.2500 0-1 % Normal BASO% 0.6 LAB L100.2550 0.0-0.9 % Normal IM GRAN % 0.200 Result Comment: IG% - Immature Granulocytes (promyelocytes, myelocytes and metamyelocytes) > 1% indicates that a LEFT SHIFT is Present. LAB L100.2620 2.0-7.7 X10 3/uL Normal Absolute Neut 3.1 LAB L100.2720 0.83-4.51 X10 3/ul Normal Absolute Lymph 2.20 Performed By: #### L100.0100, L500.2500, L501.4010 #### [facility] [address] [place], [place], [id number] BASIC METABOLIC Collected: 02/12/2018 Status: F Source: [facility] PROFILE ([facility]) 3:15 AM [facility] REPOSITORY TYPE CODE TESTS RESULT OUT OF RANGE REFERENCE UNITS LAB L501.0100 74-106 mg/dL High alert GLU 477 Result Comment: Critical Result(s) Called at: 04:38:01 02/12/2018 by: Yevgeniy Capone to Jose J HANLEY (ER). Glucose result greater than or equal to 200 mg/dL suggests DIABETES MELLITUS per A.D.A. criteria. Please note revised GLUCOSE reference range effective 2017. LAB L501.1000 7-18 mg/dL High BUN 31 LAB L501.1100 0.70-1.30 mg/dL High CREAT,SERUM 2.21 Result Comment: The validity of the calculated GFR AND GFRAA in patients over 70 years has not been determined. Clinical correlation is essential. LAB L501.1110 >60 mL/min Low EST GFR 31 Result Comment: Non- GFR Calc LAB L501.1115 >60 mL/min Low EST GFR - AA 37 Result Comment: GFR Calc LAB L501.1255 ml/min Normal Estimated CRCL 26.17 LAB L501.1300 10-20 RATIO Normal BUN/CRE 14.0 LAB L501.2200 8.5-10 mg/dL Normal .1 CA 8.9 LAB L501.5300 136-14 mmol/L Low 5 NA 135 LAB L501.5600 3.5-5. mmol/L Normal 1 K 4.5 Result Comment: Slight Hemolysis, Result may be falsely increased. LAB L501.5900 98-107 mmol/L Low CL 95 LAB L501.6100 21.0-32.0 mmol/L Normal CO2 28.0 LAB L501.6200 5-15 Normal GAP 12 Performed By: #### L100.0100, L500.2500, L501.4010 #### [facility] [address] [facility]. [place], [place], [id number] TROPONIN-I Collected: 02/12/2018 Status: F Source: [place] 3:15 AM [facility] REPOSITORY TYPE CODE TESTS RESULT OUT OF RANGE REFERENCE UNITS LAB L501.4010 <0.045 ng/mL Normal < 0.015 TROPONIN-I Result Comment: TROPONIN-I EXPECTED VALUES <0.045 Negative 0.045 - 0.590 Consistent with Cardiac Damage > OR = 0.600 Critical Value Not every elevated troponin is indicative of GA. These values should be used with clinical judgement in examining the patient's clinical picture for diagnosis. To establish a diagnosis of GA versus myocardial injury, there must be a demonstrated rise and/or fall in the troponin values, in addition to ischemic symptoms, EKG changes, new regional wall motion abnormality, and/or angiographical evidence. PLEASE NOTE: REFERENCE RANGES EDITED 17 Performed By: #### L100.0100, L500.2500, L501.4010 #### [facility] [address] [facility] [place], [place], [id number] PROTHROMBIN TIME W/INR Collected: 02/12/2018 Status: F Source: [place] 3:15 AM [facility] REPOSITORY TYPE CODE TESTS RESULT OUT OF RANGE REFERENCE UNITS LAB L300.4150 11.7-14.9 SECONDS High PROTIME 28.5 LAB L300.4200 Normal INR 2.7 Performed By: #### L300.3900 #### [facility] [address] [facility] [place], [place], [address] BASIC METABOLIC Collected: 02/01/2018 Status: F Source: [place] PROFILE (BMP) 11:46 AM [facility] REPOSITORY TYPE CODE TESTS RESULT OUT OF RANGE REFERENCE UNITS LAB L501.0100 74-106 mg/dL Low GLU 67 Result Comment: Please note revised GLUCOSE reference range effective 2017. LAB L501.1000 7-18 mg/dL High BUN 22 LAB L501.1100 0.70-1.30 mg/dL High CREAT,SERUM 1.74 Result Comment: The validity of the calculated GFR AND GFRAA in patients over 70 years has not been determined. Clinical correlation is essential. LAB L501.1110 >60 mL/min Low EST GFR 41 Result Comment: Non- GFR Calc LAB L501.1115 >60 mL/min Low EST GFR - AA 49 Result Comment: GFR Calc LAB L501.1300 10-20 RATIO Normal BUN/CRE 12.6 LAB L501.2200 8.5-10.1 mg/dL CA Normal 9.0 LAB L501.5300 136-145 mmol/L NA Normal 140 LAB L501.5600 3.5-5.1 mmol/L K Normal 3.7 LAB L501.5900 98-107 mmol/L CL Normal 100 LAB L501.6100 21.0-32.0 mmol/L High CO2 34.0 LAB L501.6200 5-15 Normal GAP 6 Performed By: #### L500.2500, L501.9520 #### [facility] [address] [place], [address] THYROID STIM HORMONE Collected: 02/01/2018 Status: F Source: [place] (TSH) 11:46 AM [facility] REPOSITORY TYPE CODE TESTS RESULT OUT OF RANGE REFERENCE UNITS LAB L501.9520 0.358-3.74 uIU/mL High TSH 6.80 Performed By: #### L500.2500, L501.9520 #### [facility] [address] [place], [address] 12 LEAD ELECTROCARDIOGRAM Observed: 01/25/2018 Status: F Source: [place] 9:08 AM [facility] REPOSITORY [facility] Cardiovascular Services [address] [place] [address] 12 Lead EKG 01/10/18 0335 MR#: [id number] Acct: [id number] Name: EDMUNDO AELJANDRA Rep #: [id number] : 1940 77 From: Tong Davis MD Attending Dr: Adam Victor DO Status: DIS ODALIS Ordering Dr: Ruel García MD Date: 01/10/18 Location: U Sex: M C Admitted: 01/10/18 Test Reason : CP Blood Pressure : / mmHG Vent. Rate : 066 BPM Atrial Rate : 078 BPM P-R Int : 000 ms QRS Dur : 146 ms QT Int : 488 ms P-R-T Axes : 000 -23 155 degrees QTc Int : 511 ms Atrial fibrillation Left bundle branch block Abnormal ECG Confirmed by SUSAN NOWAK, TONG ([id number]), graphic editor MISAEL HOPE ([id number]) on 01/11/2018 3:45:06 PM Referred By: DR GARCÍA Confirmed By:TONG DAVIS MD 01/11/18 1545 Date Tong Davis MD CC: Adam Victor DO; Ruel García MD; Kyle Silva MD Signed 12 LEAD ELECTROCARDIOGRAM Observed: 01/25/2018 Status: F Source: [place] 9:08 AM [facility] REPOSITORY [facility] Cardiovascular Services [address] [place] [address] 12 Lead EKG 01/10/18 0804 MR#: [id number] Acct: [id number] Name: MARCOEDMUNDO Raghavendra Rep #: [id number] : 1940 77 From: Tong Davis MD Attending Dr: Adam Victor DO Status: DIS ODALIS Ordering Dr: Brad Bermudez MD Date: 01/10/18 Location: U Sex: M C Admitted: 01/10/18 Test Reason : Blood Pressure : / mmHG Vent. Rate : 069 BPM Atrial Rate : 110 BPM P-R Int : 000 ms QRS Dur : 146 ms QT Int : 488 ms P-R-T Axes : 000 -15 154 degrees QTc Int : 522 ms Atrial fibrillation Left bundle branch block Abnormal ECG When compared with ECG of 10-JAN-2018 03:35, MANUAL COMPARISON REQUIRED, DATA IS UNCONFIRMED Confirmed by SUSAN NOWAK, TONG ([id number]), graphic editor MISAEL HOPE ([id number]) on 01/14/2018 1:48:23 PM Referred By: PRABHJOT Confirmed By:TONG DAVIS MD 01/14/18 1348 Date Tong Davis MD CC: Brad Bermudez MD; Adam Victor DO; Kyle Silva MD Signed CBC W/DIFF, AUTOMATED Collected: 01/24/2018 Status: F Source: [place] 11:46 AM [facility] REPOSITORY TYPE CODE TESTS RESULT OUT OF RANGE REFERENCE UNITS LAB L100.1000 4.4-11.0 K/mm3 Normal WBC 6.9 LAB L100.1200 4.6-6.2 M/mm3 Low RBC 4.59 LAB L100.1300 13.0-16.5 g/dl Normal HGB 13.8 LAB L100.1400 40-54 % Normal HCT 41.5 LAB L100.1500 80-94 fL Normal MCV 90.4 LAB L100.1600 27.0-32.0 pg Normal MCH 30.1 LAB L100.1700 32-36 g/gl Normal MCHC 33.3 LAB L100.1810 11.6-14.6 % Normal RDW CV 13.7 LAB L100.1820 35.1-43.9 fl High RDW SD 45.1 LAB L100.1900 150-450 K/mm3 Normal PLT 288 LAB L100.2000 6.2-12.0 fl Normal MPV 10.9 LAB L100.2100 47-70 % Normal NEUT% 48.1 LAB L100.2200 19-41 % Normal LY% 32.1 LAB L100.2300 0-10 % High MONO% 13.7 LAB L100.2400 0-5 % High EO% 5.1 LAB L100.2500 0-1 % Normal BASO% 0.9 LAB L100.2550 0.0-0.9 % Normal IM GRAN % 0.100 Result Comment: IG% - Immature Granulocytes (promyelocytes, myelocytes and metamyelocytes) > 1% indicates that a LEFT SHIFT is Present. LAB L100.2620 2.0-7.7 X10 3/uL Normal Absolute Neut 3.3 LAB L100.2720 0.83-4.51 X10 3/ul Normal Absolute Lymph 2.21 Performed By: #### L100.0100 #### [facility] [address] [place], [address] COMPREHENSIVE METABOLIC Collected: 01/24/2018 Status: F Source: [facility] 11:46 AM [facility] REPOSITORY TYPE CODE TESTS RESULT OUT OF RANGE REFERENCE UNITS LAB L501.0100 74-106 mg/dL Normal GLU 81 Result Comment: Please note revised GLUCOSE reference range effective 2017. LAB L501.1000 7-18 mg/dL High BUN 27 LAB L501.1100 0.70-1.30 mg/dL High CREAT,SERUM 1.99 Result Comment: The validity of the calculated GFR AND GFRAA in patients over 70 years has not been determined. Clinical correlation is essential. LAB L501.1110 >60 mL/min Low EST GFR 35 Result Comment: Non- GFR Calc LAB L501.1115 >60 mL/min Low EST GFR - AA 42 Result Comment: GFR Calc LAB L501.1300 10-20 RATIO Normal BUN/CRE 13.6 LAB L501.1500 6.4-8.2 g/dL T Normal PROT 7.5 LAB L501.1800 3.2-5.0 g/dL Normal ALB 3.3 LAB L501.1950 2.2-4.2 g/dL Normal GLOB 4.2 LAB L501.2000 0.9-2.4 RATIO Low A/G 0.8 LAB L501.2200 8.5-10.1 mg/dL CA Normal 9.0 LAB L501.4100 15-37 U/L Normal AST 18 LAB L501.4305 45-117 U/L Normal ALK P 84 LAB L501.4405 16-61 U/L Normal ALT 22 LAB L501.4600 0.20-1.00 mg/dL T Normal BILI 0.60 LAB L501.5300 136-145 mmol/L NA Normal 139 LAB L501.5600 3.5-5.1 mmol/L K Normal 3.6 LAB L501.5900 98-107 mmol/L CL Normal 98 LAB L501.6100 21.0-32.0 mmol/L High CO2 34.0 LAB L501.6200 5-15 Normal GAP 7 Performed By: #### L500.4050, L501.9520 #### [facility] [address] [facility] [place], [address] THYROID STIM HORMONE Collected: 01/24/2018 Status: F Source: [place] (TSH) 11:46 AM [facility] REPOSITORY TYPE CODE TESTS RESULT OUT OF RANGE REFERENCE UNITS LAB L501.9520 0.358-3.74 uIU/mL High TSH 5.86 Performed By: #### L500.4050, L501.9520 #### [facility] [address] [facility] [place], [place], [address] VITAMIN D,25 HYDROXY Collected: 01/24/2018 Status: F Source: [place] 11:46 AM [facility] REPOSITORY TYPE CODE TESTS RESULT OUT OF RANGE REFERENCE UNITS LAB L506.1000 29.95-100.01 ng/mL Normal Vitamin D 49.4 25-OH Result Comment: Vitamin D 25(OH) Status Range Deficiency <20 ng/mL (50nmol/L) Insuffciency 20 - 30 ng/mL (50 - 75 nmol/L) Sufficiency 30 - 100 ng/mL (75 - 250 nmol/L) Toxicity >100 ng/mL (>250 nmol/L) Performed By: #### L506.1000 #### [facility] [address] [place], [address] BASIC METABOLIC Collected: 01/11/2018 Status: F Source: [place] PROFILE (BMP) 12:59 PM [facility] REPOSITORY TYPE CODE TESTS RESULT OUT OF RANGE REFERENCE UNITS LAB L501.0100 74-106 mg/dL High GLU 170 Result Comment: Fasting Glucose result greater than or equal to 126 mg/dL suggests DIABETES MELLITUS per A.D.A. criteria. Please note revised GLUCOSE reference range effective 2017. LAB L501.1000 7-18 mg/dL Normal BUN 16 LAB L501.1100 0.70-1.30 mg/dL High CREAT,SERUM 1.63 Result Comment: The validity of the calculated GFR AND GFRAA in patients over 70 years has not been determined. Clinical correlation is essential. LAB L501.1110 >60 mL/min Low EST GFR 44 Result Comment: Non- GFR Calc LAB L501.1115 >60 mL/min Low EST GFR - AA 53 Result Comment: GFR Calc LAB L501.1300 10-20 RATIO Low BUN/CRE 9.8 LAB L501.2200 8.5-10.1 mg/dL Normal CA 8.5 LAB L501.5300 136-145 mmol/L Normal NA 136 LAB L501.5600 3.5-5.1 mmol/L Normal K 4.2 Result Comment: Moderate Hemolysis, Result may be falsely increased. LAB L501.5900 98-107 mmol/L Normal CL 101 LAB L501.6100 21.0-32.0 mmol/L Normal CO2 29.0 LAB L501.6200 5-15 Normal 6 GAP Performed By: #### L500.2500 #### [facility] [address] [place], [address] PROTHROMBIN TIME W/INR Collected: 01/11/2018 Status: F Source: [place] 12:59 PM [facility] REPOSITORY TYPE CODE TESTS RESULT OUT OF RANGE REFERENCE UNITS LAB L300.4150 11.7-14.9 SECONDS High PROTIME 23.2 LAB L300.4200 Normal INR 2.1 Performed By: #### L300.3900 #### [facility] [address] [place], [address] DISCHARGE SUMMARY Observed: 01/11/2018 Status: F Source: [place] 10:00 AM [facility] REPOSITORY [facility] Medical Records Department [address] [place] [address] Discharge Summary 01/11/18 0951 MR#: [id number] Acct: [id number] Name: EDMUNDO ALEJANDRA Rep #: [id number] : 1940 77 From: Adam Victor DO PCP: Ricardo NOWAK,Kyle Mandujano Status: DIS ODALIS Y Location: [place] [address]-1 Discharge Date and Diagnosis Date of Admission: 01/10/18 Date of Discharge: 01/10/18 - Primary Discharge Diagnosis #1 non-ST elevation myocardial infarction #2 type 2 diabetes-uncontrolled #3 ventricular tachycardia-nonsustained #4 atrial fibrillation-permanent #5 noncompliance with medical regimen #6 chronic kidney disease stage III secondary to type 2 diabetes #7 hypertension - Secondary Discharge Diagnosis Chronic Problems Hypothyroidism (Chronic) Afib (Chronic) HTN (hypertension) (Chronic) Hx of CABG (Chronic) DM2 (diabetes mellitus, type 2) (Chronic) CAD (coronary artery disease) (Chronic) Hospital Course and Treatment Operations: None Procedures: None Summary of Care Provided: The patient is a 77 year old M was seen in the emergency room with a chief complaint of chest pain. EKG was performed in the emergency room which showed atrial fibrillation which was a chronic rhythm, patient had slight elevation of his troponin, EKG showed no evidence of ischemic changes. Chest x-ray was read out as indicating congestive heart failure, this was not felt to be present as the patient had no complaints of shortness of breath and his pulse ox was normal on room air. Patient was placed and observation status on PCU, patient demanded to be discharged on 01/10/18-I had a conversation with his and the patient on that date and ask him to wait until the second set of cardiac enzymes were obtained, this that showed a marked elevation of troponin indicating a non-STEMI. Patient also had a run of nonsustained ventricular tachycardia which was asymptomatic and brief. I again talked with the patient and the patient's , patient demanded to be discharged and he was aware that he was medically unstable for discharge and he was made to sign out AMA. was upset about this but she stated that her made the decision and that she would not interfere with his decision. I contacted his PCP- Dr. Silva- who was aware of the situation and requested the patient be seen in his office on 01/11/18. Patient was instructed to do so. Patient's medications were adjusted at the time of discharge, I felt it prudent to place him on Plavix-he agreed to take this, I also changed up his M door and increased it to 120 mg daily and discontinued his atenolol due to the fact he had a previous echocardiogram which showed poor ejection fraction I felt it more proper to place him on metoprolol which she agreed to take. Finally patient agreed to take a small dose of a statin-he had muscle pain on simvastatin before, I placed him on pravastatin at the time of discharge. Patient was instructed not to drive until he was seen by Dr. Silva. On 01/10/18, patient was seen and examined: On examination he appeared in good health and spirits. Vital signs as documented. Skin warm and dry and without overt rashes. Neck without JVD. Lungs clear. Heart exam notable for irregular rhythm, normal sounds and absence of murmurs, rubs or gallops. Abdomen unremarkable and without evidence of organomegaly, masses, or abdominal aortic enlargement. Extremities nonedematous. Neuro: Cranial nerves II through XII are grossly intact, no focal motor deficits were noted. Psych: Patient is alert and oriented x3, he does not appear anxious or depressed, patient understands instructions and options to stay in the hospital and agrees to be discharged AGAINST MEDICAL ADVICE. On 01/10/18, patient was seen and examined and discharged AGAINST MEDICAL ADVICE. - Physical Exam Vital Signs Temp Pulse Resp BP Pulse Ox 98.8 F 67 18 138/84 H 95 01/10/18 13:15 01/10/18 13:15 01/10/18 13:15 01/10/18 13:15 01/10/18 13:15 Oxygen Flow Rate (L/min) 2 Oxygen Delivery Method Room Air Weight: 83.3 kg Body Mass Index (BMI) 28.8 Finger Stick Blood Glucose 27 Laboratory Tests Past 24 Hrs Troponin I 5.200 H* Discharge Activity: - - limit exertional activity until seen by Dr. Silva Weight Bearing Status: Full weight bearing Home Medications: Medications to take at Discharge Aspirin E.C. [Ecotrin] 81 mg PO DAILY@0800 #30 tablet 12/10/17 Levothyroxine [Synthroid] 50 mcg PO DAILY@0600 #30 tablet 12/10/17 Cholecalciferol (VIT D3) [Vitamin D3] 1,000 unit PO DAILY 01/10/18 Clopidogrel Bisulfate [Plavix] 75 mg PO DAILY #30 tablet 01/10/18 Furosemide [Lasix] 80 mg PO BID 01/10/18 Insulin Aspart [Novolog Flexpen] 15 unit SQ TIDCM 01/10/18 Insulin Glargine [Lantus SoloStar Pen] 40 units SC BREAKFAST 01/10/18 Isosorbide Mononitrate [Imdur] 120 mg PO DAILY #60 tablet 01/10/18 Metoprolol Tartrate [Lopressor (beta sidney)] 100 mg PO BID #60 tablet 01/10/18 Pravastatin [Pravachol] 20 mg PO DAILY #30 tablet 01/10/18 Sacubitril/Valsartan 97-103 mg [Entresto 97 mg-103 mg Tablet] 1 each PO BID 01/10/18 Warfarin [Coumadin] 4 mg PO DAILY 01/10/18 Following Prescrptions Were Given to Patient: Clopidogrel Bisulfate [Plavix] 75 mg PO DAILY #30 tablet Isosorbide Mononitrate [Imdur] 120 mg PO DAILY #60 tablet Pravastatin [Pravachol] 20 mg PO DAILY #30 tablet Metoprolol Tartrate [Lopressor (beta sidney)] 100 mg PO BID #60 tablet Primary Care Physician: Kyle Silva Chi, MD [Primary Care Provider] - Please follow up with your Primary Care Physician in: tomorrow Disposition: Against Medical Advice Minutes spent on discharge:: 30 Patient Condition:: Guarded Medical Necessity - Tobacco Use Smoking Status: Never smoker Meaningful Use Info Meaningful Use Diagnoses (Choose all that apply): AMI - AMI Aspirin given w/in 24hrs of arrival?: Yes ASA at discharge?: Yes Statins at discharge?: Yes Tuan/ARB at discharge?: Yes Beta Sidney at discharge?: Yes Done w/ Acute GA measure.: Yes Code Visit OBSV E AND M: 82150 Observ/hosp same date L3 01/11/18 1000 <Electronically signed by Adam Victor DO> Date Adam Victor DO Cosigner Signature (if applicable): Date CC: dAam Victor DO; Kyle Silva MD Signed DISCHARGE INSTRUCTION Observed: 01/10/2018 Status: F Source: [place] 1:35 PM [facility] REPOSITORY [facility] Medical Records Department [address] [place] [address] Instructions for Home/Discharge Instructions 01/10/18 1326 MR#: [id number] Acct: [id number] Name: EDMUNDO ALEJANDRA Rep #: [id number] : 1940 77 From: Adam Victor DO PCP: Ricardo NOWAK,Kyle Mandujano Status: ADM ODALIS You will use the following diet at home:: Calorie/Carbohydrate Controlled (specify 1200, 1400, etc) - 1800 kizzy Your food should be the consistency of: Regular Your liquids should be the consistency of: Regular/Thin Discharge Activity: - - limit exertional activity until seen by Dr. Silva Weight Bearing Status: Full weight bearing Allergies/Adverse Reactions: Allergies simvastatin Adverse Reaction (Verified 01/10/18 03:34) MUSCLE ACHES PATIENT REPORTED IN ED THAT PATIENT EXPERIENCED MUSCLE PAIN ON SIMVASTATIN Medications to take at Discharge Aspirin E.C. [Ecotrin] 81 mg PO DAILY@0800 #30 tablet 12/10/17 Levothyroxine [Synthroid] 50 mcg PO DAILY@0600 #30 tablet 12/10/17 Cholecalciferol (VIT D3) [Vitamin D3] 1,000 unit PO DAILY 01/10/18 Clopidogrel Bisulfate [Plavix] 75 mg PO DAILY #30 tablet 01/10/18 Furosemide [Lasix] 80 mg PO BID 01/10/18 Insulin Aspart [Novolog Flexpen] 15 unit SQ TIDCM 01/10/18 Insulin Glargine [Lantus SoloStar Pen] 40 units SC BREAKFAST 01/10/18 Isosorbide Mononitrate [Imdur] 120 mg PO DAILY #60 tablet 01/10/18 Metoprolol Tartrate [Lopressor (beta sidney)] 100 mg PO BID #60 tablet 01/10/18 Pravastatin [Pravachol] 20 mg PO DAILY #30 tablet 01/10/18 Sacubitril/Valsartan 97-103 mg [Entresto 97 mg-103 mg Tablet] 1 each PO BID 01/10/18 Warfarin [Coumadin] 4 mg PO DAILY 01/10/18 The following prescriptions were given: Clopidogrel Bisulfate [Plavix] 75 mg PO DAILY #30 tablet Isosorbide Mononitrate [Imdur] 120 mg PO DAILY #60 tablet Pravastatin [Pravachol] 20 mg PO DAILY #30 tablet Metoprolol Tartrate [Lopressor (beta sidney)] 100 mg PO BID #60 tablet Primary Care Physician: Kyle Silva Chi, MD [Primary Care Provider] - Please follow up with your Primary Care Physician in: tomorrow Test Results: Test results from this visit will be discussed in further detail at your follow-up appointment, if applicable. 01/10/18 1335 <Electronically signed by Aadm Victor DO> Date Adam Victor DO CC: Kyle Silva MD TROPONIN-I Collected: 01/10/2018 Status: F Source: [place] 12:20 PM [facility] REPOSITORY TYPE CODE TESTS RESULT OUT OF RANGE REFERENCE UNITS LAB L501.4010 <0.045 ng/mL High alert 5.200 TROPONIN-I Result Comment: Critical Result(s) Called at: 12:50:57 01/10/2018 by: Ann Perez TROPONIN-I EXPECTED VALUES <0.045 Negative 0.045 - 0.590 Consistent with Cardiac Damage > OR = 0.600 Critical Value Not every elevated troponin is indicative of GA. These values should be used with clinical judgement in examining the patient's clinical picture for diagnosis. To establish a diagnosis of GA versus myocardial injury, there must be a demonstrated rise and/or fall in the troponin values, in addition to ischemic symptoms, EKG changes, new regional wall motion abnormality, and/or angiographical evidence. PLEASE NOTE: REFERENCE RANGES EDITED 17 Performed By: #### L501.4010 #### [facility] [place], [address] HISTORY AND PHYSICAL Observed: 01/10/2018 Status: F Source: [place] EXAM 8:22 AM [facility] REPOSITORY [facility] Medical Records Department [address] [place] [address] History and Physical 01/10/18 0727 MR#: [id number] Acct: [id number] Name: EDMUNDO ALEJANDRA Rep #: [id number] : 1940 77 From: Brad Bermudez MD PCP: Ricardo NOWAK,Kyle Mandujano Status: ADM ODALIS Y Location: [place] [address] Problem List (1) Chest pain Status: Acute History of Present Illness Date of Admission: 01/10/18 Chief Complaint: chest Pain The patient is a 77 year old M with a significant history of CAD status post CABG and stent; diabetes mellitus; hypertension; A. fib on chronic anticoagulation who presented because of excruciating substernal progressively worsening chest pain that woke him from sleep. His chest pain radiated to his right upper extremity and to his right upper flanks. He noted some swelling and increased warmth at his right upper flank. Patient took 2 pills of nitroglycerin while at home. The nitroglycerin helped improved his pain but it did not take the pain completely away. He denies any aggravating factor to the chest pain. At the emergency department his troponin was 0.222. His EKG showed controlled A. fib with left bundle branch block unchanged from previous. He was given nitroglycerin paste at the ED. Past Medical History Past Medical History (Chronic Problems): Chronic Problems Hypothyroidism (Chronic) Afib (Chronic) HTN (hypertension) (Chronic) Hx of CABG (Chronic) DM2 (diabetes mellitus, type 2) (Chronic) CAD (coronary artery disease) (Chronic) Allergies simvastatin Adverse Reaction (Verified 01/10/18 03:34) MUSCLE ACHES PATIENT REPORTED IN ED THAT PATIENT EXPERIENCED MUSCLE PAIN ON SIMVASTATIN Home Medications: Ambulatory Orders Medication Instructions Recorded Aspirin E.C. [Ecotrin] 81 mg PO DAILY@0800 #30 tablet 12/10/17 Surgical History: coronary bypass surgery Psychiatric History: No pertinent psych hx Smoking Status: Never smoker - *Family History Paternal History Items: Stroke Maternal History Items: Cancer - breast. Review of Systems Constitutional: Denies: Chills, Fever, Weight Change HEENT: Denies: Head Aches, Sinus Congestion, Sinus Drainage Cardiovascular: Reports: Chest Pain. Denies: Palpitations Respiratory: Denies: Cough, Shortness of breath at rest, Sputum production Gastrointestinal: Denies: Abdominal Pain, Nausea, Vomiting Genitourinary: Denies: Dysuria Musculoskeletal: Denies: Joint Pain, Joint Tenderness Skin: Denies: Rash, Wounds Neurological: Denies: Numbness, Tingling, Focal weakness Psychiatric: Denies: Anxiety, Depression, Homicidal Ideations, Suicidal Ideations Hematologic/ Lymphatic: Denies: Easy Bruising, Easy Bleeding VTE Information - Inpt Only VTE Present on Admission: No VTE Mechan Device Prophylaxis: None VTE Pharm Prophylaxis ordered?: No Reason prophylaxis not ordered:: Treatment Not Indicated - On Coumadin for Afib - Physical Exam General: Alert, Oriented x3, Cooperative HEENT: Atraumatic, PERRLA, EOMI, Normocephalic Neck: Supple, No JVD, Negative Carotid Bruits Lungs: Clear to auscultation, Normal air movement Cardiovascular: No murmurs, Irregular Rate Abdomen: Bowel Sounds Present, Soft, Non Tender Extremities: No edema, Capillary Refill Less than 3 Seconds Skin: No rashes, No breakdown Musculoskeletal: No Tenderness to Palpation of Joints or Extremities Neurological: Cranial nerves II-XII grossly intact Psych/Mental Status: Normal Affect, Appropriate Vital Signs Temp Pulse Resp BP Pulse Ox 98.1 F 62 20 H 122/62 H 92 01/10/18 03:32 01/10/18 06:01 01/10/18 06:01 01/10/18 06:01 01/10/18 06:01 Oxygen Delivery Method Room Air Weight: 86.4 kg Body Mass Index (BMI) 29.8 Finger Stick Blood Glucose 27 Laboratory Tests Past 24 Hrs Assessment/Plan All Active Problems Chest pain (Acute) Hypoglycemia (Acute) Acute encephalopathy (Acute) The patient is a 77 year old M with a significant history of CAD status post CABG and stent; diabetes mellitus; hypertension; A. fib on chronic anticoagulation who presented because of excruciating substernal progressively worsening chest pain. Chest pain Patient had acute non-ST elevation GA on 12/08/2017. Pharmacological myocardial perfusion stress test on December 10 2017 showed: Extensive inferior infarct involving the mid inferior, apical inferior. Previous anterolateral infarct and apical lateral infarct No ischemia was noted Ischemic cardiomyopathy. His gated ejection fraction was 44%. Patient was managed at that time with aspirin, beta-blockers, isosorbide and lisinopril. Echocardiogram on 12/08/2017 showed an ejection fraction of 35%. Severe inferior and apical Hypokinesis. Mildly dilated right ventricle. Mild dilated right ventricular systolic dysfunction. RVSP of 50. Moderate pulmonary hypertension. At this time patient states that he does not wants any cardiac catheterization; any more stents or further percutaneous interventions on his coronaries. Shared decision not to do any more troponins at this time since patient has no plans to do any coronary interventions. Patient is a DNR CCA. Continue aspirin daily. Nitroglycerin paste was placed on patient at emergency department; continue. Patient is allergic to simvastatin and on not on any home statins. Continue atenolol. Patient takes isosorbide mononitrate 60 mg daily. Consider adjusting antianginal medications. Ischemic cardiomyopathy Ejection from 35% on 12/08/2017 Continue atenolol, Imdur, Entresto and Lasix. A. fib On admission patient was in controlled A. fib. INR was 1.6. Patient takes Coumadin 4mg daily. Coumadin 8 mg x1 today. Check INR in a.m if patient is still here and adjust Coumadin as needed should. Diabetes mellitus Blood glucose on admission was uncontrolled. Continue home Lantus. Adjust prandial insulin and add correction scale insulin. Accu-Cheks q. before meals at bedtime. Hypertension Blood pressure admission was not within goal but fairly acceptable because of patient age Continue blood pressure medication as above Trend blood pressures and adjust blood pressure medication as necessary. DVT Prophylaxis Not indicated as patient is getting Coumadin for A. fib. Code Visit OBSV E AND M: 10240 Initial observation care L3 01/10/18 0822 <Electronically signed by Brad Bermudez MD> Date Brad Bermudez MD Cosigner Signature: Date (if applicable) CC: Brad Bermudez MD; Kyle Silva MD Signed BEDSIDE GLUCOSE Collected: 01/10/2018 Status: F Source: [place] 8:22 AM [facility] REPOSITORY TYPE CODE TESTS RESULT OUT OF REFERENCE UNITS RANGE LAB L501.080 70-110 mg/dL High BEDSIDE GLU 238 Result Comment: MANAGEMENT OF PATIENT CARE PER NURSING PROTOCOL Performed By: #### L501.080 #### [facility] Point of Care [address] [place] [address] EMERGENCY DEPARTMENT Observed: 01/10/2018 Status: F Source: [place] SUMMARY 4:59 AM [facility] REPOSITORY [facility] Medical Records Department [address] [place] [address] Emergency Department Summary 01/10/18 0357 MR#: [id number] Acct: [id number] Name: EDMUNDO ALEJANDRA Rep #: [id number] : 1940 77 From: Ruel García MD PCP: Ricardo NOWAK,Kyle Mandujano Status: REG ER - ER Visit Summary Date of Service: 01/10/18 Chief Complaint: Chest pain History of Present Illness: The patient is a 77 M with 2 hours of chest pain. He has similar symptoms a few weeks ago, he has a history of bypass surgery 20 years ago. He took nitroglycerin at home and his pain is almost gone but not fully. No cough no shortness of breath no fever or chills. Physical Examination: Not appear in acute distress. Moist mucous membranes, no obvious facial deformity No C-spine tenderness supple neck. Regular rate and rhythm without any obvious murmurs Clear lungs bilaterally speaking in full sentences without any obvious respiratory distress Abdomen soft and nontender no guarding or rebound Moves all extremities without any difficulty or pain. Skin does not show any obvious rashes or lesions, no trauma. Alert oriented 3 with no gross focal deficit Emergency Department Course and Treatment: Patient's EKG is unremarkable, atrial fibrillation which is old, left bundle branch block which is old. This is unchanged from his prior EKG. he recently was admitted for myocardial infarction, he had no intervention, he has some elevated troponin this may be from his prior non-ST elevation GA, regardless he will be observed in the hospital. Disposition: Admit to the hospital in stable condition Impression: Acute coronary syndrome This note was generated with [employer] dictation software. It may contain incorrect words, spelling, and punctuation that were not noted in review of the chart prior to signing ED Disposition - Plan for ED Patient: Chief Complaint: Chest Pain Referrals: Kyle Silva Chi, MD [Primary Care Provider] - What to do if you have Problems For any increased pain, shortness of breath, bleeding, nausea or vomiting, chest pain, or any unexpected problems, contact your Primary Care Provider. Call [facility] ([phone]) or report to the closest Emergency Room. Call 911 if necessary. 01/10/18 0459 <Electronically signed by Ruel García MD> Date Ruel García MD Cosigner Signature (If Indicated): Date CC: Kyle Silva MD CHEST 1 VIEW Observed: 01/10/2018 Status: F Source: [place] (PORTABLE) 3:53 AM [facility] REPOSITORY [facility] Imaging Services [address] [place] [address] Chest 1 View (Portable) MR#: [id number] Acct: [id number] Name: EDMUNDO ALEJANDRA Rep #: [id number] : 1940 M 77 From: Geovany Milner MD PCP: Kyle Silva MD, Chi Status: REG ER Study: Chest 1 View (Portable) Date of Exam: 01/10/18 Exam# [id number] Ordering Dr: Ruel García MD HISTORY: C/O CHEST PAINSTATES HAD A HEART ATTACK 3 WEEKS AGO EXAM: XR Chest 2 views: Portable COMPARISON: 12/08/2017 FINDINGS: Similar findings with comparison to previous. Cardiomegaly, unchanged. Bilateral septal interstitial thickening within the mid and lower lung zones bilaterally, worse on the right, in keeping with chronic vascular congestion with interstitial edema. No pulmonary consolidation. No pleural effusion. Atherosclerotic thoracic aorta. Previous median sternotomy. RAD/Chest 1 View (Portable) IMPRESSION: Chronic congestive heart failure with cardiomegaly and interstitial pulmonary edema, worse on the right. at 0431 Reported and signed by: Geovany Milner MD Electronically Signed: Geovany Milner, at 4:29 EST Tel , Service support , CC: Ruel García MD; Kyle Silva MD Press Tender Smoke Signal: Signed CBC W/DIFF, AUTOMATED Collected: 01/10/2018 Status: F Source: [place] 3:45 AM [facility] REPOSITORY TYPE CODE TESTS RESULT OUT OF RANGE REFERENCE UNITS LAB L100.1000 4.4-11.0 K/mm3 Normal WBC 7.9 LAB L100.1200 4.6-6.2 M/mm3 Normal RBC 4.63 LAB L100.1300 13.0-16.5 g/dl Normal HGB 14.1 LAB L100.1400 40-54 % Normal HCT 42.7 LAB L100.1500 80-94 fL Normal MCV 92.2 LAB L100.1600 27.0-32.0 pg Normal MCH 30.5 LAB L100.1700 32-36 g/gl Normal MCHC 33.0 LAB L100.1810 11.6-14.6 % Normal RDW CV 14.0 LAB L100.1820 35.1-43.9 fl High RDW SD 47.4 LAB L100.1900 150-450 K/mm3 Normal PLT 269 LAB L100.2000 6.2-12.0 fl Normal MPV 11.2 LAB L100.2100 47-70 % Normal NEUT% 55.6 LAB L100.2200 19-41 % Normal LY% 28.8 LAB L100.2300 0-10 % High MONO% 11.2 LAB L100.2400 0-5 % Normal EO% 4.0 LAB L100.2500 0-1 % Normal BASO% 0.3 LAB L100.2550 0.0-0.9 % Normal IM GRAN % 0.100 Result Comment: IG% - Immature Granulocytes (promyelocytes, myelocytes and metamyelocytes) > 1% indicates that a LEFT SHIFT is Present. LAB L100.2620 2.0-7.7 X10 3/uL Normal Absolute Neut 4.4 LAB L100.2720 0.83-4.51 X10 3/ul Normal Absolute Lymph 2.28 Performed By: #### L100.0100 #### [facility] [address] [place], [address] PROTHROMBIN TIME W/INR Collected: 01/10/2018 Status: F Source: [place] 3:45 AM [facility] REPOSITORY TYPE CODE TESTS RESULT OUT OF RANGE REFERENCE UNITS LAB L300.4150 11.7-14.9 SECONDS High PROTIME 18.8 LAB L300.4200 Normal INR 1.6 Performed By: #### L300.3900 #### [facility] [address] [place], [address] BASIC METABOLIC Collected: 01/10/2018 Status: F Source: [place] PROFILE (BMP) 3:45 AM [facility] REPOSITORY TYPE CODE TESTS RESULT OUT OF RANGE REFERENCE UNITS LAB L501.0100 74-106 mg/dL High GLU 301 Result Comment: Glucose result greater than or equal to 200 mg/dL suggests DIABETES MELLITUS per A.D.A. criteria. Please note revised GLUCOSE reference range effective 2017. LAB L501.1000 7-18 mg/dL Normal BUN 15 LAB L501.1100 0.70-1.30 mg/dL High CREAT,SERUM 1.92 Result Comment: The validity of the calculated GFR AND GFRAA in patients over 70 years has not been determined. Clinical correlation is essential. LAB L501.1110 >60 mL/min Low EST GFR 36 Result Comment: Non- GFR Calc LAB L501.1115 >60 mL/min Low EST GFR - AA 44 Result Comment: GFR Calc LAB L501.1255 ml/min Normal Estimated CRCL 30.12 LAB L501.1300 10-20 RATIO Low BUN/CRE 7.8 LAB L501.2200 8.5-10 mg/dL Normal .1 CA 8.7 LAB L501.5300 136-14 mmol/L Normal 5 NA 136 LAB L501.5600 3.5-5. mmol/L Normal 1 K 3.9 LAB L501.5900 98-107 mmol/L Low CL 95 LAB L501.6100 21.0-3 mmol/L Normal 2.0 CO2 30.0 LAB L501.6200 5-15 Normal GAP 11 Performed By: #### L500.2500, L501.4010 #### [facility] [address] [place], [address] TROPONIN-I Collected: 01/10/2018 Status: F Source: [place] 3:45 AM [facility] REPOSITORY TYPE CODE TESTS RESULT OUT OF RANGE REFERENCE UNITS LAB L501.4010 <0.045 ng/mL High 0.222 TROPONIN-I Result Comment: TROPONIN-I EXPECTED VALUES <0.045 Negative 0.045 - 0.590 Consistent with Cardiac Damage > OR = 0.600 Critical Value Not every elevated troponin is indicative of GA. These values should be used with clinical judgement in examining the patient's clinical picture for diagnosis. To establish a diagnosis of GA versus myocardial injury, there must be a demonstrated rise and/or fall in the troponin values, in addition to ischemic symptoms, EKG changes, new regional wall motion abnormality, and/or angiographical evidence. PLEASE NOTE: REFERENCE RANGES EDITED 17 Performed By: #### L500.2500, L501.4010 #### [facility] [address] [place], [address] CBC W/DIFF, AUTOMATED Collected: 01/08/2018 Status: F Source: [place] 10:51 AM [facility] REPOSITORY TYPE CODE TESTS RESULT OUT OF RANGE REFERENCE UNITS LAB L100.1000 4.4-11.0 K/mm3 Normal WBC 7.6 LAB L100.1200 4.6-6.2 M/mm3 Low RBC 4.49 LAB L100.1300 13.0-16.5 g/dl Normal HGB 13.6 LAB L100.1400 40-54 % Normal HCT 41.0 LAB L100.1500 80-94 fL Normal MCV 91.3 LAB L100.1600 27.0-32.0 pg Normal MCH 30.3 LAB L100.1700 32-36 g/gl Normal MCHC 33.2 LAB L100.1810 11.6-14.6 % Normal RDW CV 13.9 LAB L100.1820 35.1-43.9 fl High RDW SD 45.9 LAB L100.1900 150-450 K/mm3 Normal PLT 277 LAB L100.2000 6.2-12.0 fl Normal MPV 10.9 LAB L100.2100 47-70 % Normal NEUT% 49.0 LAB L100.2200 19-41 % Normal LY% 30.6 LAB L100.2300 0-10 % High MONO% 14.0 LAB L100.2400 0-5 % High EO% 5.3 LAB L100.2500 0-1 % Normal BASO% 0.8 LAB L100.2550 0.0-0.9 % Normal IM GRAN % 0.300 Result Comment: IG% - Immature Granulocytes (promyelocytes, myelocytes and metamyelocytes) > 1% indicates that a LEFT SHIFT is Present. LAB L100.2620 2.0-7.7 X10 3/uL Normal Absolute Neut 3.7 LAB L100.2720 0.83-4.51 X10 3/ul Normal Absolute Lymph 2.31 Performed By: #### L100.0100 #### [facility] [address] [place], [address] BASIC METABOLIC Collected: 01/08/2018 Status: F Source: [place] PROFILE (BMP) 10:51 AM [facility] REPOSITORY TYPE CODE TESTS RESULT OUT OF RANGE REFERENCE UNITS LAB L501.0100 74-106 mg/dL High GLU 161 Result Comment: Fasting Glucose result greater than or equal to 126 mg/dL suggests DIABETES MELLITUS per A.D.A. criteria. Please note revised GLUCOSE reference range effective 2017. LAB L501.1000 7-18 mg/dL Normal BUN 13 LAB L501.1100 0.70-1.30 mg/dL High CREAT,SERUM 1.67 Result Comment: The validity of the calculated GFR AND GFRAA in patients over 70 years has not been determined. Clinical correlation is essential. LAB L501.1110 >60 mL/min Low EST GFR 43 Result Comment: Non- GFR Calc LAB L501.1115 >60 mL/min Low EST GFR - AA 52 Result Comment: GFR Calc LAB L501.1300 10-20 RATIO Low BUN/CRE 7.8 LAB L501.2200 8.5-10.1 mg/dL Normal CA 9.1 LAB L501.5300 136-145 mmol/L Normal NA 141 LAB L501.5600 3.5-5.1 mmol/L Normal K 3.8 LAB L501.5900 98-107 mmol/L Normal CL 101 LAB L501.6100 21.0-32.0 mmol/L Normal CO2 31.0 LAB L501.6200 5-15 Normal GAP 9 Performed By: #### L500.2500 #### [facility] [address] [place], [address] CBC W/DIFF, AUTOMATED Collected: 12/27/2017 Status: F Source: [place] 12:50 PM [facility] REPOSITORY TYPE CODE TESTS RESULT OUT OF RANGE REFERENCE UNITS LAB L100.1000 4.4-11.0 K/mm3 Normal WBC 7.4 LAB L100.1200 4.6-6.2 M/mm3 Low RBC 4.56 LAB L100.1300 13.0-16.5 g/dl Normal HGB 13.6 LAB L100.1400 40-54 % Normal HCT 41.2 LAB L100.1500 80-94 fL Normal MCV 90.4 LAB L100.1600 27.0-32.0 pg Normal MCH 29.8 LAB L100.1700 32-36 g/gl Normal MCHC 33.0 LAB L100.1810 11.6-14.6 % Normal RDW CV 13.3 LAB L100.1820 35.1-43.9 fl High RDW SD 44.0 LAB L100.1900 150-450 K/mm3 Normal PLT 276 LAB L100.2000 6.2-12.0 fl Normal MPV 10.4 LAB L100.2100 47-70 % Normal NEUT% 53.7 LAB L100.2200 19-41 % Normal LY% 27.4 LAB L100.2300 0-10 % High MONO% 14.5 LAB L100.2400 0-5 % Normal EO% 3.8 LAB L100.2500 0-1 % Normal BASO% 0.5 LAB L100.2550 0.0-0.9 % Normal IM GRAN % 0.100 Result Comment: IG% - Immature Granulocytes (promyelocytes, myelocytes and metamyelocytes) > 1% indicates that a LEFT SHIFT is Present. LAB L100.2620 2.0-7.7 X10 3/uL Normal Absolute Neut 4.0 LAB L100.2720 0.83-4.51 X10 3/ul Normal Absolute Lymph 2.02 Performed By: #### L100.0100 #### [facility] [address] [place], [place], [id number] BASIC METABOLIC Collected: 12/27/2017 Status: F Source: [place] PROFILE (BMP) 12:50 PM [facility] REPOSITORY TYPE CODE TESTS RESULT OUT OF RANGE REFERENCE UNITS LAB L501.0100 74-106 mg/dL Normal GLU 101 Result Comment: Fasting Glucose result from 100 to 125 mg/dL suggests IMPAIRED HOMEOSTASIS per A.D.A. criteria. Please note revised GLUCOSE reference range effective 2017. LAB L501.1000 7-18 mg/dL High BUN 20 LAB L501.1100 0.70-1.30 mg/dL High CREAT,SERUM 1.77 Result Comment: The validity of the calculated GFR AND GFRAA in patients over 70 years has not been determined. Clinical correlation is essential. LAB L501.1110 >60 mL/min Low EST GFR 40 Result Comment: Non- GFR Calc LAB L501.1115 >60 mL/min Low EST GFR - AA 48 Result Comment: GFR Calc LAB L501.1300 10-20 RATIO Normal BUN/CRE 11.3 LAB L501.2200 8.5-10.1 mg/dL CA Normal 9.0 LAB L501.5300 136-145 mmol/L NA Normal 139 LAB L501.5600 3.5-5.1 mmol/L K Normal 4.5 LAB L501.5900 98-107 mmol/L CL Normal 100 LAB L501.6100 21.0-32.0 mmol/L Normal CO2 31.0 LAB L501.6200 5-15 Normal GAP 8 Performed By: #### L500.2500, L501.9520 #### [facility] [address] [place], [place], [address] THYROID STIM HORMONE Collected: 12/27/2017 Status: F Source: [place] (TSH) 12:50 PM [facility] REPOSITORY TYPE CODE TESTS RESULT OUT OF RANGE REFERENCE UNITS LAB L501.9520 0.358-3.74 uIU/mL Normal TSH 3.20 Performed By: #### L500.2500, L501.9520 #### [facility] [address] [place], [address] 12 LEAD ELECTROCARDIOGRAM Observed: 12/13/2017 Status: F Source: [place] 11:41 AM [facility] REPOSITORY [facility] Cardiovascular Services [address] [place] [address] 12 Lead EKG 12/08/17 0547 MR#: [id number] Acct: [id number] Name: EDMUNDO ALEJANDRA Rep #: [id number] : 1940 77 From: Ruel Brink MD Attending Dr: Birdie Iyer MD Status: DIS IN Ordering Dr: Phylicia Rowan MD Date: 12/08/17 Location: [facility] Sex: M C Admitted: 12/08/17 Test Reason : ADM EKG Blood Pressure : / mmHG Vent. Rate : 072 BPM Atrial Rate : 079 BPM P-R Int : 000 ms QRS Dur : 136 ms QT Int : 474 ms P-R-T Axes : 000 006 177 degrees QTc Int : 519 ms Atrial fibrillation Non-specific intra-ventricular conduction block Abnormal ECG Confirmed by CUBA NOWAK, RUEL ([id number]), graphic editor MISAEL HOPE ([id number]) on 12/13/2017 11:41:02 AM Referred By: MANI Confirmed By:RUEL BRINK MD 12/13/17 1141 Date Ruel Brink MD CC: Birdie Iyer MD; Phylicia Rowan MD; Kyle Silva MD Signed 12 LEAD ELECTROCARDIOGRAM Observed: 12/13/2017 Status: F Source: [place] 11:37 AM [facility] REPOSITORY [facility] Cardiovascular Services [address] [place] [address] 12 Lead EKG 12/10/17 0528 MR#: [id number] Acct: [id number] Name: EDMUNDO ALEJANDRA Rep #: [id number] : 1940 77 From: Ruel Brink MD Attending Dr: Birdie Iyer MD Status: DIS IN Ordering Dr: Birdie Iyer MD Date: 12/10/17 Location: [facility] Sex: M C Admitted: 12/08/17 Test Reason : AM EKG Blood Pressure : / mmHG Vent. Rate : 052 BPM Atrial Rate : 055 BPM P-R Int : 000 ms QRS Dur : 134 ms QT Int : 544 ms P-R-T Axes : 000 -11 170 degrees QTc Int : 505 ms Atrial fibrillation with slow ventricular response Non-specific intra-ventricular conduction block Cannot rule out Anterior infarct , age undetermined T wave abnormality, consider lateral ischemia Abnormal ECG Confirmed by CUBA NOWAK, RUEL ([id number]), graphic editor MISAEL HOPE ([id number]) on 12/13/2017 11:36:35 AM Referred By: GOSIA Confirmed By:RUEL BRINK MD 12/13/17 1136 Date Ruel Brink MD CC: Birdie Iyer MD; Kyle Silva MD Signed HEMOGLOBIN A1C Collected: 12/13/2017 Status: F Source: [place] 11:37 AM [facility] REPOSITORY TYPE CODE TESTS RESULT OUT OF RANGE REFERENCE UNITS LAB L501.9985 4.2-6.3 % High HGB A1C 10.0 Performed By: #### L501.9985 #### [facility] [address] [place] [address], [address] BASIC METABOLIC Collected: 12/13/2017 Status: F Source: [place] PROFILE (BMP) 11:37 AM [facility] REPOSITORY TYPE CODE TESTS RESULT OUT OF RANGE REFERENCE UNITS LAB L501.0100 74-106 mg/dL High GLU 202 Result Comment: Glucose result greater than or equal to 200 mg/dL suggests DIABETES MELLITUS per A.D.A. criteria. Please note revised GLUCOSE reference range effective 2017. LAB L501.1000 7-18 mg/dL High BUN 27 LAB L501.1100 0.70-1.30 mg/dL High CREAT,SERUM 1.89 Result Comment: The validity of the calculated GFR AND GFRAA in patients over 70 years has not been determined. Clinical correlation is essential. LAB L501.1110 >60 mL/min Low EST GFR 37 Result Comment: Non- GFR Calc LAB L501.1115 >60 mL/min Low EST GFR - AA 45 Result Comment: GFR Calc LAB L501.1300 10-20 RATIO Normal BUN/CRE 14.3 LAB L501.2200 8.5-10.1 mg/dL CA Normal 8.9 LAB L501.5300 136-145 mmol/L Low NA 135 LAB L501.5600 3.5-5.1 mmol/L K Normal 3.8 LAB L501.5900 98-107 mmol/L CL Normal 98 LAB L501.6100 21.0-32.0 mmol/L Normal CO2 30.0 LAB L501.6200 5-15 Normal GAP 7 Performed By: #### L500.2500 #### [facility] [address] [place], [address] PROTHROMBIN TIME W/INR Collected: 12/13/2017 Status: F Source: [place] 11:37 AM [facility] REPOSITORY TYPE CODE TESTS RESULT OUT OF RANGE REFERENCE UNITS LAB L300.4150 11.7-14.9 SECONDS High PROTIME 29.1 LAB L300.4200 Normal INR 2.7 Performed By: #### L300.3900 #### [facility] [address] [place], [address] DISCHARGE SUMMARY Observed: 12/13/2017 Status: F Source: [place] 8:41 AM [facility] REPOSITORY [facility] Medical Records Department [address] [place] [address] Discharge Summary 12/10/17 1145 MR#: [id number] Acct: [id number] Name: ALEJANDRAEDMUNDO Raghavendra Rep #: [id number] : 1940 77 From: Birdie Iyer MD PCP: Ricardo NOWAK,Kyle Mandujano Status: DIS IN Y Location: [place] [address] Discharge Date and Diagnosis Date of Admission: 12/08/17 Date of Discharge: 12/10/17 - Primary Discharge Diagnosis Active and Suspected Problems Chest pain (Acute) - Secondary Discharge Diagnosis Chronic Problems Hypothyroidism (Chronic) Afib (Chronic) HTN (hypertension) (Chronic) Hx of CABG (Chronic) DM2 (diabetes mellitus, type 2) (Chronic) CAD (coronary artery disease) (Chronic) Hospital Course and Treatment Imaging Results: 12/10/17 11:12 Nuclear Stress Test - Chemical [NM] Routine Clinical Impression(s) from Imaging Studies Chest X-Ray 12/08/17 04:00 IMPRESSION: Cardiomegaly. Pulmonary vascular congestion/edema. No focal consolidation. Basilar atelectasis/infiltrate. There is areas of peribronchial thickening. This could represent bronchitis in the appropriate clinical setting. Electronically Signed: Ruben Patiño, at 4:18 EDT Tel , Service support , Cardiology Operations: None Procedures: Stress test Summary of Care Provided: 7-year-old male with past medical history of ischemic cardiomyopathy, chronic atrial fibrillation, on Coumadin, comes in with complaints of chest pain. He was found to have elevated troponins peaked at 1.2, cardiology was consulted. 1. Acute NSTEMI, NICO score 6, troponin elevated, EKG shows atrial fibrillation, cardiology consulted, pharmacologic stress test planned and was negative, managed on aspirin, Coumadin, beta-sidney, isosorbide, lisinopril. 2. Acute on chronic systolic CHF exacerbation, EF of 35%, managed on IV Lasix with improvement in diuresis. Patient had his Lasix adjusted to his renal function which was slightly elevated. Renal function improved with adjustment in Lasix. 3. Chronic atrial fibrillation, rate controlled, on Coumadi 4. Elevated creatinine, CKD stage III, creatinine elevation to 1.91 was secondary to diuretic effect, resolved back to his normal with changes in his diuretic 5. Acute respiratory insufficiency secondary to acute CHF exacerbation, present on admission, resolved 6. Accelerated hypertension/hypertensive emergency, present on admission, blood pressure was better controlled with changes to his medication 7. Type II DM, blood sugars was initially uncontrolled with changes made to his Lantus, with episode of near hypoglycemia, he was started slowly on Lantus, discussed in detail with patient and the , will need to monitor blood sugars and may eventually go back to his admitting Lantus. 8. CAD status post stents, CABG, on aspirin, not on statin(allergy to simvastatin) 9. Elevated TSH, free T4 and free T3 normal, needs to be followed up in the outpatient. Subjective: On the day of discharge, patient felt well, denied any worsening shortness of breath. I had seen him ambulate with his nurse. No worsening shortness of breath, chest pain, dizziness. No acute events on telemetry Objective: General: Alert, Oriented x3, Cooperative, No apparent distress, looks improved, not on oxygen HEENT: Atraumatic, PERRLA, EOMI, Normocephalic Oral: Moist Mucosa Neck: Supple, No JVD, Negative Carotid Bruits Lungs: Clear to auscultation, Normal air movement Cardiovascular: Regular Rhythm, Normal S1, Normal S2, No murmurs, Irregular Rate Abdomen: Bowel Sounds Present, Soft, Non Tender, Non-Distended, No Hepato-splenomegaly Extremities: No edema Skin: No rashes, No breakdown Musculoskeletal: No Tenderness to Palpation of Joints or Extremities Lymphatic: No Cervical, Supraclavicular, or Inguinal Adenopathy Neurological: Cranial nerves II-XII grossly intact, Neuro grossly intact Psych/Mental Status: Normal Affect, Appropriate - Physical Exam Vital Signs Temp Pulse Resp BP Pulse Ox 98.2 F 50 L 18 106/52 L 92 12/10/17 11:31 12/10/17 11:31 12/10/17 11:31 12/10/17 11:31 12/10/17 11:31 Oxygen Flow Rate (L/min) 2 Oxygen Delivery Method Room Air Weight: 82.9 kg Body Mass Index (BMI) 29.5 Finger Stick Blood Glucose 27 Intake and Output for Last 24 Hours Intake Total 770 / 770 1135 / 1135 50 / 50 Output Total 1550 / 1550 Balance 770 / 770 -415 / -415 50 / 50 Laboratory Tests Past 24 Hrs WBC 7.5 RBC 4.35 L Hgb 13.3 Hct 38.8 L MCV 89.2 MCH 30.6 MCHC 34.3 POC Glucose POC Glucose 353 H 315 H 256 H Discharge Diet: Low fat/ Low Cholesterol, 2000 mg Sodium Diet Discharge Activity: Return to Normal Activity Home Medications: Medications to take at Discharge Atenolol 100 mg PO BID 09/19/13 Lisinopril 40 mg PO BID 09/19/13 Vitamin D 1,000 units PO DAILY 09/19/13 Warfarin 4 mg PO DAILY 09/19/13 Aspirin E.C. [Ecotrin] 81 mg PO DAILY@0800 #30 tablet 12/10/17 Furosemide [Lasix] 40 mg PO DAILY #30 tablet 12/10/17 Insulin Aspart [Novolog Flexpen] 5 unit SQ TIDCM #0 12/10/17 Insulin Glargine [Lantus SoloStar Pen] 15 units SC QHS pen 12/10/17 Isosorbide Mononitrate [Imdur] 60 mg PO DAILY #30 tablet 12/10/17 Levothyroxine [Synthroid] 50 mcg PO DAILY@0600 #30 tablet 12/10/17 Following Prescrptions Were Given to Patient: Aspirin E.C. [Ecotrin] 81 mg PO DAILY@0800 #30 tablet Furosemide [Lasix] 40 mg PO DAILY #30 tablet Isosorbide Mononitrate [Imdur] 60 mg PO DAILY #30 tablet Levothyroxine [Synthroid] 50 mcg PO DAILY@0600 #30 tablet Other Amb Orders: Basic Metabolic Profile (BMP) Time Frame: 3 Days, Location: Laboratory Primary Care Physician: Kyle Silva Chi, MD [Primary Care Provider] - Please follow up with your Primary Care Physician in: within 2 weeks Disposition: Home Minutes spent on discharge:: 40 Patient Condition:: Stable Medical Necessity - Tobacco Use Smoking Status: Never smoker Meaningful Use Info Meaningful Use Diagnoses (Choose all that apply): AMI, CHF - AMI Aspirin given w/in 24hrs of arrival?: Yes ASA at discharge?: Yes Statins at discharge?: Yes Tuan/ARB at discharge?: Yes Beta Sidney at discharge?: Yes Done w/ Acute GA measure.: Yes - CHF TUAN/ARB ordered at discharge?: Yes Documented LVEF (%): 35 Code Visit Inpatient E AND M: [id number] Disch Hosp 12/13/17 0841 <Electronically signed by Birdie Iyer MD> Date Birdie Iyer MD Cosigner Signature (if applicable): Date CC: Birdie Iyer MD; Kyle Silva MD Signed 12 LEAD ELECTROCARDIOGRAM Observed: 12/10/2017 Status: F Source: [place] 3:19 PM [facility] Cardiovascular Services [address] [place] [address] 12 Lead EKG 12/08/17 0340 MR#: [id number] Acct: [id number] Name: MARCOEDMUNDO Raghavendra Rep #: [id number] : 1940 77 From: Tong Davis MD Attending Dr: Birdie Iyer MD Status: DIS IN Ordering Dr: Devin Jones MD Date: 12/08/17 Location: [facility] Sex: M C Admitted: 12/08/17 Test Reason : CP Blood Pressure : / mmHG Vent. Rate : 058 BPM Atrial Rate : 052 BPM P-R Int : 000 ms QRS Dur : 136 ms QT Int : 476 ms P-R-T Axes : 000 008 215 degrees QTc Int : 467 ms Atrial fibrillation with slow ventricular response Non-specific intra-ventricular conduction block T wave abnormality, consider lateral ischemia Abnormal ECG Confirmed by SUSAN NOWAK, TONG ([id number]), graphic editor MISAEL HOPE ([id number]) on 12/10/2017 3:19:25 PM Referred By: RANDOLPH Confirmed By:TONG DAVIS MD 12/10/17 1519 Date Tong Davis MD CC: Birdie Iyer MD; Devin Jones MD; Kyle Silva MD Signed DISCHARGE INSTRUCTION Observed: 12/10/2017 Status: F Source: [place] 11:45 AM [facility] Medical Records Department [address] [place] [address] Instructions for Home/Discharge Instructions 12/10/17 1127 MR#: [id number] Acct: [id number] Name: EDMUNDO ALEJANDRA Rep #: [id number] : 1940 77 From: Birdie Iyer MD PCP: Ricardo NOWAK,[employer] Chi Status: ADM IN - Discharge Diagnoses Current Active Problems: Current Active and Chronic Problems Chest pain (Acute) Reason(s) for Visit for Discharge Instructions: Shortness of breath You will use the following diet at home:: Calorie/Carbohydrate Controlled (specify 1200, 1400, etc), Cardiac Your food should be the consistency of: Regular Your liquids should be the consistency of: Regular/Thin Discharge Activity: Return to Normal Activity Additional Instructions: Follow a low salt diet. Weigh yourself daily. Let your doctor know if your weight goes up more than 4 pounds. You should continue to check your INR with your primary doctor as scheduled. You will need to repeat your kidney test within a week with your PCP. Take note of your new medications. You will be referred for therapy in the outpatient. Allergies/Adverse Reactions: Allergies simvastatin Adverse Reaction (Verified 12/08/17 03:41) MUSCLE ACHES PATIENT REPORTED IN ED THAT PATIENT EXPERIENCED MUSCLE PAIN ON SIMVASTATIN Medications to take at Discharge Atenolol 100 mg PO BID 09/19/13 Lisinopril 40 mg PO BID 09/19/13 Vitamin D 1,000 units PO DAILY 09/19/13 Warfarin 4 mg PO DAILY 09/19/13 Aspirin E.C. [Ecotrin] 81 mg PO DAILY@0800 #30 tablet 12/10/17 Furosemide [Lasix] 40 mg PO DAILY #30 tablet 12/10/17 Insulin Aspart [Novolog Flexpen] 5 unit SQ TIDCM #0 12/10/17 Insulin Glargine [Lantus SoloStar Pen] 15 units SC QHS pen 12/10/17 Isosorbide Mononitrate [Imdur] 60 mg PO DAILY #30 tablet 12/10/17 Levothyroxine [Synthroid] 50 mcg PO DAILY@0600 #30 tablet 12/10/17 The following prescriptions were given: Aspirin E.C. [Ecotrin] 81 mg PO DAILY@0800 #30 tablet Furosemide [Lasix] 40 mg PO DAILY #30 tablet Isosorbide Mononitrate [Imdur] 60 mg PO DAILY #30 tablet Levothyroxine [Synthroid] 50 mcg PO DAILY@0600 #30 tablet Orders to be completed after discharge: Basic Metabolic Profile (BMP) Time Frame: 3 Days, Location: Laboratory Primary Care Physician: Kyle Silva Chi, MD [Primary Care Provider] - Please follow up with your Primary Care Physician in: within 2 weeks Test Results: Test results from this visit will be discussed in further detail at your follow-up appointment, if applicable. Proposed Discharge Date: 12/10/17 12/10/17 1145 <Electronically signed by Birdie yIer MD> Date Birdie Iyer MD CC: Rayna Melendez MD; Kyle Silva MD BEDSIDE GLUCOSE Collected: 12/10/2017 Status: F Source: [place] 11:28 AM [facility] TYPE CODE TESTS RESULT OUT OF REFERENCE UNITS RANGE LAB L501.080 70-110 mg/dL High BEDSIDE GLU 353 Result Comment: MANAGEMENT OF PATIENT CARE PER NURSING PROTOCOL Performed By: #### L501.080 #### [facility] Laboratory Point of Care [address] [place] [address]. [place] [address] STRESS REPORT Observed: 12/10/2017 Status: F Source: [place] 10:54 AM [facility] Cardiovascular Services [address] [place], [place] [address] [address] MR#: [id number] Acct: [id number] Name: EDMUNDO ALEJANDRA Rep #: [id number] : 1940 77 From: Tong Davis MD Primary Care: Kyle Silva MD, Chi Status: ADM IN Ordering Dr: Jeyson: Mike Steen Stress Test Report Pharmacologic myocardial perfusion stress test. 77-year-old man with a history of chest pain abnormal cardiac enzymes. Stress protocol: Resting EKG demonstrates atrial for ablation with rate of 56 bpm incomplete left bundle branch block is noted nonspecific ST-T wave changes noted. 0.4 mg of regadenoson was infused per usual protocol followed by rapid intravenous saline flush injection continuous EKG monitoring was performed. Patient maintained atrial for ablation throughout the recording. The maximum heart rate was 63 bpm which was 44% of maximum predicted heart rate the maximum workload was 1 metabolic equivalent. The resting blood pressure was 102/72 with a final blood pressure 106/68. No clinical angina was noted. Myocardial perfusion protocol. 11.2 mCi of technetium 99m sestamibi was injected at rest. 0.4 mg of regadenoson was infused per usual protocol. At peak infusion 33.5 mCi of technetium 99m sestamibi was injected stress images were obtained stress and rest images were reconstructed and compared in the short axis vertical long horizontal long axis. Gated images were also obtained per Perfusion SPECT analysis: Review of the stress images demonstrate a mildly dilated cardiac silhouette size. The apical to mid inferior wall the apical lateral wall, anterior lateral and the inferolateral wall all exhibit a perfusion defect. There is a small area in the basal inferior wall with mildly reduced perfusion. The resting images demonstrate a similar patent. The above is suggestive of a previous extensive inferior infarct, anterolateral infarct and inferolateral infarct. This reversibility is noted to suggest ischemia. Gated SPECT analysis: Gated ejection fraction is 44%. 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 12/10/17 1054 <Electronically signed by Tong Davis MD> Date Tong Davis MD CC: Birdie Iyer MD; Kyle Silva MD Date Dictated: 12/10/171048 Date Transcribed: 12/10/171048 Press Tender Smoke Signal: CO Signed BEDSIDE GLUCOSE Collected: 12/10/2017 Status: F Source: [place] 6:41 AM [facility] TYPE CODE TESTS RESULT OUT OF REFERENCE UNITS RANGE LAB L501.080 70-110 mg/dL High BEDSIDE GLU 282 Result Comment: MANAGEMENT OF PATIENT CARE PER NURSING PROTOCOL Performed By: #### L501.080 #### [facility] Laboratory Point of Care [address] [place] [address] CBC-COMPLETE BLOOD CNT Collected: 12/10/2017 Status: F Source: [place] NO DIFF 5:11 AM [facility] TYPE CODE TESTS RESULT OUT OF RANGE REFERENCE UNITS LAB L100.1000 4.4-11.0 K/mm3 Normal WBC 7.5 LAB L100.1200 4.6-6.2 M/mm3 Low RBC 4.35 LAB L100.1300 13.0-16.5 g/dl Normal HGB 13.3 LAB L100.1400 40-54 % Low HCT 38.8 LAB L100.1500 80-94 fL Normal MCV 89.2 LAB L100.1600 27.0-32.0 pg Normal MCH 30.6 LAB L100.1700 32-36 g/gl Normal MCHC 34.3 LAB L100.1810 11.6-14.6 % Normal RDW CV 13.3 LAB L100.1820 35.1-43.9 fl Normal RDW SD 43.0 LAB L100.1900 150-450 K/mm3 Normal PLT 223 LAB L100.2000 6.2-12.0 fl Normal MPV 11.3 Performed By: #### L100.0500 #### [facility] [place], [place], [address] BASIC METABOLIC Collected: 12/10/2017 Status: F Source: [place] PROFILE (BMP) 5:11 AM [facility] TYPE CODE TESTS RESULT OUT OF RANGE REFERENCE UNITS LAB L501.0100 74-106 mg/dL High GLU 292 Result Comment: Glucose result greater than or equal to 200 mg/dL suggests DIABETES MELLITUS per A.D.A. criteria. Please note revised GLUCOSE reference range effective 2017. LAB L501.1000 7-18 mg/dL High BUN 28 LAB L501.1100 0.70-1.30 mg/dL High CREAT,SERUM 1.73 Result Comment: The validity of the calculated GFR AND GFRAA in patients over 70 years has not been determined. Clinical correlation is essential. LAB L501.1110 >60 mL/min Low EST GFR 41 Result Comment: Non- GFR Calc LAB L501.1115 >60 mL/min Low EST GFR - AA 49 Result Comment: GFR Calc LAB L501.1255 ml/min Normal Estimated CRCL 33.43 LAB L501.1300 10-20 RATIO Normal BUN/CRE 16.2 LAB L501.2200 8.5-10 mg/dL Normal .1 CA 8.6 LAB L501.5300 136-14 mmol/L Normal 5 NA 137 LAB L501.5600 3.5-5. mmol/L Normal 1 K 4.1 LAB L501.5900 98-107 mmol/L Normal CL 98 LAB L501.6100 21.0-3 mmol/L Normal 2.0 CO2 28.0 LAB L501.6200 5-15 Normal GAP 11 Performed By: #### L500.2500 #### [facility] [address] [facility] [address] PROTHROMBIN TIME W/INR Collected: 12/10/2017 Status: F Source: [place] 5:11 AM [facility] TYPE CODE TESTS RESULT OUT OF RANGE REFERENCE UNITS LAB L300.4150 11.7-14.9 SECONDS High PROTIME 28.1 LAB L300.4200 Normal INR 2.6 Performed By: #### L300.3900 #### [facility] [address] [facility] [address] BEDSIDE GLUCOSE Collected: 12/09/2017 Status: F Source: [place] 10:29 PM [facility] TYPE CODE TESTS RESULT OUT OF REFERENCE UNITS RANGE LAB L501.080 70-110 mg/dL High BEDSIDE GLU 315 Result Comment: MANAGEMENT OF PATIENT CARE PER NURSING PROTOCOL Performed By: #### L501.080 #### [facility] Point of Care [address] [facility] [place] [address] BEDSIDE GLUCOSE Collected: 12/09/2017 Status: F Source: [place] 5:26 PM [facility] TYPE CODE TESTS RESULT OUT OF REFERENCE UNITS RANGE LAB L501.080 70-110 mg/dL High BEDSIDE GLU 256 Result Comment: MANAGEMENT OF PATIENT CARE PER NURSING PROTOCOL Performed By: #### L501.080 #### [facility] Point of Care [address] [place] [address] BEDSIDE GLUCOSE Collected: 12/09/2017 Status: F Source: [place] 11:14 AM [facility] TYPE CODE TESTS RESULT OUT OF REFERENCE UNITS RANGE LAB L501.080 70-110 mg/dL High BEDSIDE GLU 254 Result Comment: MANAGEMENT OF PATIENT CARE PER NURSING PROTOCOL Performed By: #### L501.080 #### [facility] Point of Care [address] [place] [address] BEDSIDE GLUCOSE Collected: 12/09/2017 Status: F Source: [place] 6:58 AM [facility] TYPE CODE TESTS RESULT OUT OF REFERENCE UNITS RANGE LAB L501.080 70-110 mg/dL High BEDSIDE GLU 213 Result Comment: MANAGEMENT OF PATIENT CARE PER NURSING PROTOCOL Performed By: #### L501.080 #### [facility] Point of Care [address] [place] [address] CBC W/DIFF, AUTOMATED Collected: 12/09/2017 Status: F Source: [place] 5:12 AM [facility] TYPE CODE TESTS RESULT OUT OF RANGE REFERENCE UNITS LAB L100.1000 4.4-11.0 K/mm3 Normal WBC 6.6 LAB L100.1200 4.6-6.2 M/mm3 Low RBC 4.35 LAB L100.1300 13.0-16.5 g/dl Normal HGB 13.1 LAB L100.1400 40-54 % Low HCT 38.9 LAB L100.1500 80-94 fL Normal MCV 89.4 LAB L100.1600 27.0-32.0 pg Normal MCH 30.1 LAB L100.1700 32-36 g/gl Normal MCHC 33.7 LAB L100.1810 11.6-14.6 % Normal RDW CV 13.7 LAB L100.1820 35.1-43.9 fl High RDW SD 45.0 LAB L100.1900 150-450 K/mm3 Normal PLT 214 LAB L100.2000 6.2-12.0 fl Normal MPV 10.5 LAB L100.2100 47-70 % Normal NEUT% 53.1 LAB L100.2200 19-41 % Normal LY% 30.7 LAB L100.2300 0-10 % High MONO% 11.6 LAB L100.2400 0-5 % Normal EO% 3.8 LAB L100.2500 0-1 % Normal BASO% 0.8 LAB L100.2550 0.0-0.9 % Normal IM GRAN % 0.000 Result Comment: IG% - Immature Granulocytes (promyelocytes, myelocytes and metamyelocytes) > 1% indicates that a LEFT SHIFT is Present. LAB L100.2620 2.0-7.7 X10 3/uL Normal Absolute Neut 3.5 LAB L100.2720 0.83-4.51 X10 3/ul Normal Absolute Lymph 2.02 Performed By: #### L100.0100 #### [facility] [address] [place], [address] PROTHROMBIN TIME W/INR Collected: 12/09/2017 Status: F Source: [place] 5:12 AM [facility] TYPE CODE TESTS RESULT OUT OF RANGE REFERENCE UNITS LAB L300.4150 11.7-14.9 SECONDS High PROTIME 26.4 LAB L300.4200 Normal INR 2.4 Performed By: #### L300.3900 #### [facility] [address] [facility], [address] BASIC METABOLIC Collected: 12/09/2017 Status: F Source: [place] PROFILE (BMP) 5:12 AM [facility] TYPE CODE TESTS RESULT OUT OF RANGE REFERENCE UNITS LAB L501.0100 74-106 mg/dL High GLU 209 Result Comment: Glucose result greater than or equal to 200 mg/dL suggests DIABETES MELLITUS per A.D.A. criteria. Please note revised GLUCOSE reference range effective 2017. LAB L501.1000 7-18 mg/dL High BUN 24 LAB L501.1100 0.70-1.30 mg/dL High CREAT,SERUM 1.91 Result Comment: The validity of the calculated GFR AND GFRAA in patients over 70 years has not been determined. Clinical correlation is essential. LAB L501.1110 >60 mL/min Low EST GFR 36 Result Comment: Non- GFR Calc LAB L501.1115 >60 mL/min Low EST GFR - AA 44 Result Comment: GFR Calc LAB L501.1255 ml/min Normal Estimated CRCL 30.28 LAB L501.1300 10-20 RATIO Normal BUN/CRE 12.6 LAB L501.2200 8.5-10 mg/dL Low .1 CA 8.3 LAB L501.5300 136-14 mmol/L Normal 5 NA 138 LAB L501.5600 3.5-5. mmol/L Normal 1 K 3.9 LAB L501.5900 98-107 mmol/L Normal CL 101 LAB L501.6100 21.0-3 mmol/L Normal 2.0 CO2 31.0 LAB L501.6200 5-15 Normal GAP 6 Performed By: #### L500.2500, L501.5200 #### [facility] [address] [place], [address] MAGNESIUM Collected: 12/09/2017 Status: F Source: [place] 5:12 AM [facility] TYPE CODE TESTS RESULT OUT OF RANGE REFERENCE UNITS LAB L501.5200 1.6-2.6 mg/dL Normal MG 1.9 Performed By: #### L500.2500, L501.5200 #### [facility] [address] [place], [address] BEDSIDE GLUCOSE Collected: 12/09/2017 Status: F Source: [place] 12:12 AM [facility] TYPE CODE TESTS RESULT OUT OF REFERENCE UNITS RANGE LAB L501.080 70-110 mg/dL High BEDSIDE GLU 282 Result Comment: MANAGEMENT OF PATIENT CARE PER NURSING PROTOCOL Performed By: #### L501.080 #### [facility] Point of Care [address] [facility] [place] [address] BEDSIDE GLUCOSE Collected: 12/08/2017 Status: F Source: [place] 5:14 PM [facility] TYPE CODE TESTS RESULT OUT OF REFERENCE UNITS RANGE LAB L501.080 70-110 mg/dL High BEDSIDE GLU 131 Result Comment: MANAGEMENT OF PATIENT CARE PER NURSING PROTOCOL Performed By: #### L501.080 #### [facility] Point of Care [address] [facility] [address] ECHOCARDIOGRAM COMPLETE Observed: 12/08/2017 Status: F Source: [place] 1:59 PM [facility] Cardiovascular Services [address] [place] [address] Echo Complete 12/08/17 0648 MR#: [id number] Acct: [id number] Name: EDMUNDO ALEJANDRA Rep #: [id number] : 1940 77 From: Rayna Melendez MD Attending Dr: Birdie Iyer MD Status: ADM IN Ordering Dr: Phylicia Rowan MD Date: 12/08/17 Location: [facility] Sex: M C Admitted: 12/08/17 Reason For Study: CHF Procedure This was a 2D Doppler, Color Flow transthoracic echocardiogram. Exam performed portable in patient room. Left Ventricle Normal LV size. Mild concentric left ventricular hypertrophy. The estimated ejection fraction is 35 %. Right Ventricle Mildly dilated right ventricle. Mild global right ventricular systolic dysfunction. Atria The left atrium is mildly enlarged. The right atrium is moderately enlarged. Mitral Valve Mild-Moderate (1-2+) mitral valve insufficiency. Tricuspid Valve Mild to moderate (1-2+) tricuspid valve insufficiency. Right ventricular systolic pressure estimated to be 50 mmHg. Aortic Valve Aortic sclerosis, no stenosis. Mild (1+) aortic valve insufficiency. Great Vessels Normal aortic root. The inferior vena cava is dilated. Pericardium/Pleural No pericardial effusion. MMode/2D Measurements AND Calculations LVIDd: 5.1 cm IVSd: 1.2 cm LVOT diam: 2.1 cm LVIDs: 4.0 cm LVPWd: 1.4 cm LVOT area: 3.4 cm2 FS: 20.7 % Ao root diam: 3.5 cm LAV(MOD-bp): 78.7 ml LVAd ap4: 36.2 cm2 ACS: 1.8 cm LAV(MOD-bp) Indexed: 39.3 ml/m2 EDV(MOD-sp4): 134.4 ml LA dimension: 4.9 cm LAV(MOD-sp2): 84.6 ml EDV(sp4-el): 140.5 ml LAV(MOD-sp4): 69.7 ml LVAs ap4: 29.3 cm2 ESV(MOD-sp4): 95.3 ml ESV(sp4-el): 94.9 ml EF(MOD-sp4): 29.1 % EF(sp4-el): 32.5 % SV(MOD-sp4): 39.1 ml SV(sp4-el): 45.7 ml Aortic Valve Planimetry: 2.0 cm2 LA A4 area: 25.3 cm2 RA A4 area: 24.7 cm2 Time Measurements MV dec time: 0.18 sec Doppler Measurements AND Calculations MV E max danuta: 67.7 cm/sec MV V2 max: 118.8 cm/sec MV P1/2t max danuta: 120.1 cm/sec MV max P.6 mmHg MV P1/2t: 74.6 msec MV V2 mean: 66.3 cm/sec MV dec slope: 471.1 cm/sec2 MV mean P.1 mmHg MVA(P1/2t): 2.9 cm2 MV V2 VTI: 24.4 cm MVA(VTI): 2.1 cm2 Ao V2 max: 129.1 cm/sec LV V1 max: 75.9 cm/sec MR max danuta: 471.9 cm/sec Ao max P.7 mmHg LV V1 max P.3 mmHg MR max P.1 mmHg Ao V2 mean: 83.9 cm/sec LV V1 mean P.99 mmHg MR mean danuta: 359.1 cm/sec Ao mean P.2 mmHg LV V1 mean: 45.5 cm/sec MR mean P.6 mmHg Ao V2 VTI: 26.2 cm LV V1 VTI: 14.7 cm MR VTI: 168.4 cm LAUREEN(I,D): 1.9 cm2 LAUREEN(V,D): 2.0 cm2 SV(LVOT): 50.0 ml PA V2 max: 70.0 cm/sec TR max danuta: 323.2 cm/sec TR max P.8 mmHg Interpretation Summary Mild concentric left ventricular hypertrophy. The estimated ejection fraction is 35 %.. Severe inferior and apical hypokinesis Mildly dilated right ventricle. Mild global right ventricular systolic dysfunction. The left atrium is mildly enlarged. The right atrium is moderately enlarged. Mild-Moderate (1-2+) mitral valve insufficiency. Mild to moderate (1-2+) tricuspid valve insufficiency. Right ventricular systolic pressure estimated to be 50 mmHg. Moderate pulmonary hypertenion Ordering Physician: Phylicia Rowan Referring Physician: Kyle Silva Chi Performed By: Richard Hall RCS 12/08/17 1358 Date Rayna Melendez MD CC: Birdie Iyer MD; Phylicia Rowan MD; Kyle Silva MD Date Dictated: 12/08/17 0648 Date Transcribed: 12/08/17 1358 Press Tender Smoke Signal: Signed BEDSIDE GLUCOSE Collected: 12/08/2017 Status: F Source: [place] 11:47 AM [facility] TYPE CODE TESTS RESULT OUT OF REFERENCE UNITS RANGE LAB L501.080 70-110 mg/dL High BEDSIDE GLU 140 Result Comment: MANAGEMENT OF PATIENT CARE PER NURSING PROTOCOL Performed By: #### L501.080 #### [facility] Point of Care [address] [place] [address] CONSULTATION Observed: 12/08/2017 Status: F Source: [place] 11:15 AM [facility] Medical Records Department [address] [place] [address] Consultation 12/08/17 1102 MR#: [id number] Acct: [id number] Name: EDMUNDO ALEJANDRA Rep #: [id number] : 1940 77 From: Rayna Melendez MD PCP: Kyle Silva MD, Chi Status: ADM IN Location: [place] [address] Reason for Consult Date of Consultation: 12/08/17 History of Present Illness: The patient is a 77 year old M past medical history significant for coronary artery disease status post coronary artery bypass graft surgery x4 about 20 years ago. He also has history of diabetes mellitus and chronic renal insufficiency. Patient has been admitted with complaints of chest pain. However the patient says that his primary complaint was dyspnea that started early this morning. Woke him up from sleep. According to him, he felt that the chest discomfort was only with deep breathing. No diaphoresis. No orthopnea. His any ankle edema. Patient denies any recent history of exertional or rest angina. [] Past Medical History Allergies/Adverse Reactions: Allergies simvastatin Adverse Reaction (Verified 12/08/17 03:41) MUSCLE ACHES PATIENT REPORTED IN ED THAT PATIENT EXPERIENCED MUSCLE PAIN ON SIMVASTATIN Home Medications: Ambulatory Orders Medication Instructions Recorded Atenolol 100 mg PO BID 09/19/13 Levothyroxine 50 mcg PO DAILY 09/19/13 Lisinopril 40 mg PO BID 09/19/13 Vitamin D 2,000 units PO DAILY 09/19/13 Past Medical History (Chronic Problems): Chronic Problems Hypothyroidism (Chronic) Afib (Chronic) HTN (hypertension) (Chronic) Hx of CABG (Chronic) DM2 (diabetes mellitus, type 2) (Chronic) CAD (coronary artery disease) (Chronic) Surgical History: coronary bypass surgery Psychiatric History: No pertinent psych hx - *Family History Paternal History Items: No pertinent history Lives: Spouse/ Significant Other Smoking Status: Never smoker Alcohol: None Drugs: None Review of Systems - Review of Systems General: Denies: Fever, Fatigue, Chills Cardiovascular: Reports: Shortness of Breath at Rest. Denies: Orthopnea, Peripheral Edema Respiratory: Denies: Cough Gastrointestinal: Denies: Abdominal Discomfort, Jaundice, Nausea, Emesis, Melena Neurological: Reports: History of CVA Subjectve: Comfortable. Lying flat in the bed. Objective: Vital Signs Temp Pulse Resp BP Pulse Ox 98.8 F 58 L 16 137/84 H 94 12/08/17 09:50 12/08/17 09:50 12/08/17 09:50 12/08/17 09:50 12/08/17 09:50 Oxygen Flow Rate (L/min) 2 Oxygen Delivery Method Nasal Cannula Weight: 85.6 kg Body Mass Index (BMI) 29.5 Finger Stick Blood Glucose 27 General: Awake, Alert, Oriented x 3, No Acute Distress HEENT: Atraumatic, Normocephalic Neck: - - Mild jugular venous distention Lungs: Clear to auscultation Cardiovascular: Irregular Rhythm, Normal S1, Normal S2 Vascular: No Carotid Bruits Abdomen: Bowel Sounds Present, Soft Extremities: Bilateral Edema +1 Neurological: No Focal Motor or Sensory Deficit Psych/Mental Status: Appropriate 12/08/17 03:45: WBC 8.5, RBC 4.61, Hgb 14.2, Hct 41.3, MCV 89.6, MCH 30.8, MCHC 34.4, RDW 13.8, RDW Differential 44.6 H, Plt Count 257, MPV 10.8, Immature Gran % (Auto) 0.200, Neut % (Auto) 47.3, Lymph % (Auto) 32.7, Desha % (Auto) 14.8 H, Eos % (Auto) 4.2, Baso % (Auto) 0.8, Absolute Neuts (auto) 4.0, Total Counted Not Reportable 12/08/17 03:45: PT 22.2 H, INR 1.9 12/08/17 03:45: Sodium 135 L, Potassium 4.7, Chloride 101, Carbon Dioxide 28.0, Anion Gap 6, BUN 24 H, Creatinine 1.78 H, Est GFR (MDRD) Af Amer 48 L, Est GFR (MDRD) Non-Af 40 L, BUN/Creatinine Ratio 13.5, Glucose 288 H, Calcium 8.4 L, Troponin I 0.777 H* 12/08/17 03:45: B-Natriuretic Peptide 923.7 H 12/08/17 06:49: Troponin I 0.766 H* 12/08/17 06:49: Triglycerides 99, Cholesterol 209 H, LDL Cholesterol 141 H, VLDL Cholesterol 20, HDL Cholesterol 48 12/08/17 06:49: Hemoglobin A1c 9.5 H 12/08/17 09:52: Troponin I 1.220 H* Rhythm: Atrial fibrillation EKG: Atrial fibrillation. Left bundle branch block ECHO: Pending Stress Test: Cardiac Cath: PCI: CT Surgery: Holter monitor: EPS: PPM: CXR: Chest CT Scan: Assessment/Plan 1. Non-ST elevation myocardial infarction. Started on aspirin. Continue. Check 2D echocardiogram to assess LV function. Further treatment options discussed with patient. Invasive management strategy with cardiac catheterization, coronary angiography and possible revascularization versus medical treatment and risk assessment with stress test were discussed. Risks benefits explained. He understands these and wishes noninvasive treatment strategy for now in view of his underlying chronic renal insufficiency. We will schedule a pharmacological stress test for him on Sunday. Start on nitrates. 2. Atrial fibrillation. History of chronic atrial fibrillation with history of CVA in the past. Continue warfarin. Target INR between 2-3. 3. Chronic renal insufficiency 4. Diabetes mellitus. 5. Hypertension 6. History of CAD status post CABG. See #1 above 7. History of cardiomyopathy with ejection fraction 40% on echocardiogram from 2012. Will repeat echo 12/08/17 1115 <Electronically signed by Rayna Melendez MD> Date Rayna Melendez MD Cosigner Signature (if applicable): Date CC: Rayna Melendez MD; Kyle Silva MD Signed TROPONIN-I Collected: 12/08/2017 Status: F Source: [place] 9:52 AM [facility] REPOS[facility] Order Comment: 'TROP' Serial specimen #1, #2 or #3: 3 TYPE CODE TESTS RESULT OUT OF RANGE REFERENCE UNITS LAB L501.4010 <0.045 ng/mL High alert 1.220 TROPONIN-I Result Comment: Critical Result(s) Called at: 10:48:02 12/08/2017 by: Yevgeniy Ziegler RN ([facility]). TROPONIN-I EXPECTED VALUES <0.045 Negative 0.045 - 0.590 Consistent with Cardiac Damage > OR = 0.600 Critical Value Not every elevated troponin is indicative of GA. These values should be used with clinical judgement in examining the patient's clinical picture for diagnosis. To establish a diagnosis of GA versus myocardial injury, there must be a demonstrated rise and/or fall in the troponin values, in addition to ischemic symptoms, EKG changes, new regional wall motion abnormality, and/or angiographical evidence. PLEASE NOTE: REFERENCE RANGES EDITED 17 Performed By: #### L501.4010 #### [facility] [place], [address] TROPONIN-I Collected: 12/08/2017 Status: F Source: [place] 6:49 AM [facility] Order Comment: 'TROP' Serial specimen #1, #2 or #3: 2 TYPE CODE TESTS RESULT OUT OF RANGE REFERENCE UNITS LAB L501.4010 <0.045 ng/mL High alert 0.766 TROPONIN-I Result Comment: Critical Result(s) Called at: 07:41:17 12/08/2017 by: Yevgeniy Cota RN ([facility]). TROPONIN-I EXPECTED VALUES <0.045 Negative 0.045 - 0.590 Consistent with Cardiac Damage > OR = 0.600 Critical Value Not every elevated troponin is indicative of GA. These values should be used with clinical judgement in examining the patient's clinical picture for diagnosis. To establish a diagnosis of GA versus myocardial injury, there must be a demonstrated rise and/or fall in the troponin values, in addition to ischemic symptoms, EKG changes, new regional wall motion abnormality, and/or angiographical evidence. PLEASE NOTE: REFERENCE RANGES EDITED 17 Performed By: #### L501.4010 #### [facility] [address] [place], [address] HEMOGLOBIN A1C Collected: 12/08/2017 Status: F Source: [place] 6:49 AM [facility] TYPE CODE TESTS RESULT OUT OF RANGE REFERENCE UNITS LAB L501.9985 4.2-6.3 % High HGB A1C 9.5 Performed By: #### L501.9985 #### [facility] [address] [place], [address] LIPID PROFILE Collected: 12/08/2017 Status: F Source: [place] 6:49 AM [facility] TYPE CODE TESTS RESULT OUT OF RANGE REFERENCE UNITS LAB L501.4900 200 mg/dL High CHOL 209 Result Comment: <200 mg/dL Desirable 200-240 mg/dL Borderline >240 mg/dL High Risk LAB L501.5000 mg/dL Normal TRIG 99 Result Comment: The drugs N-Acetylcysteine and Metamizole may falsely depress this assay. Serum Triglycerides Reference Interval Normal <150 mg/dL Borderline high 150 - 199 mg/dL High 200 - 499 mg/dL Very High > or = 500 mg/dL LAB L501.6400 mg/dL Normal HDL 48 Result Comment: The drugs N-Acetylcysteine and Metamizole may falsely depress this assay. Reference Range HDL <40 mg/dL Low HDL Cholesterol HDL >or= 60 mg/dL High HDL Cholesterol LAB L501.6500 0-130 mg/dL High LDL 141 LAB L501.6600 5-40 mg/dL Normal VLDL 20 Performed By: #### L500.4100, L501.9520 #### [facility] [address] [place], [address] THYROID STIM HORMONE Collected: 12/08/2017 Status: F Source: [place] (TSH) 6:49 AM [facility] TYPE CODE TESTS RESULT OUT OF RANGE REFERENCE UNITS LAB L501.9520 0.358-3.74 uIU/mL High TSH 5.78 Performed By: #### L500.4100, L501.9520 #### [facility] [address] [place], [address] FREE T3 Collected: 12/08/2017 Status: F Source: [place] 6:49 AM [facility] Order Comment: Comments: as add on test TYPE CODE TESTS RESULT OUT OF RANGE REFERENCE UNITS LAB L501.48685 2.18-3.98 pg/mL Normal FREE T3 2.3 Performed By: #### L501.79592, L506.0400 #### [facility] [address] [facility] [place], [address] T4 FREE DIRECT Collected: 12/08/2017 Status: F Source: [place]GO 6:49 AM [facility] Order Comment: Comments: as add on test TYPE CODE TESTS RESULT OUT OF RANGE REFERENCE UNITS LAB L506.0400 0.76-1.46 ng/dL Normal T4 FREE 1.24 DIRECT Performed By: #### L501.74431, L506.0400 #### [facility] [address] [facility], [address] BEDSIDE GLUCOSE Collected: 12/08/2017 Status: F Source: [place] 6:35 AM [facility] TYPE CODE TESTS RESULT OUT OF REFERENCE UNITS RANGE LAB L501.080 70-110 mg/dL High BEDSIDE GLU 290 Result Comment: MANAGEMENT OF PATIENT CARE PER NURSING PROTOCOL Performed By: #### L501.080 #### [facility] Point of Care [address] [place] [address] HISTORY AND PHYSICAL Observed: 12/08/2017 Status: F Source: [place] EXAM 6:08 AM [facility] REPOS[facility] Medical Records Department [address] [place] [address] History and Physical 12/08/17 0446 MR#: [id number] Acct: [id number] Name: EDMUNDO ALEJANDRA Rep #: [id number] : 1940 77 From: Phylicia Rowan MD PCP: Ricardo NOWAK,Kyle Mandujano Status: ADM IN Y Location: [place] [id number] Problem List (1) Chest pain Status: Acute History of Present Illness Date of Admission: 12/08/17 Chief Complaint: chest pain The patient is a 77 year old M with past medical history of hypertension, coronary artery disease status post stents and CABG 20 years ago, hyperlipidemia, diabetes mellitus and Afib, on coumadin. He was admitted on 12/08/2017 with a complaint of chest pain which started around 30 minutes prior to his admission. Pain was pressure-like, and radiated to the epigastrium and substernal area, with no aggravating or relieving factors. Chest pain had resolved at time of review in the ED. He also had some associated cough which is nonproductive and shortness of breath over the last week. He denied any orthopnea or dyspnea and denied any lower extremity swelling. In the ED, he was found to have blood pressure of 170/111 and was breathing at 23/min. He was saturating 94% on 3 L of oxygen. Labs were significant for troponin of 0.777 and BNP of 93.7 with creatinine 1.78 and sodium of 135. CBC was unremarkable. Chest x-ray showed cardiomegaly and pulmonary vascular congestion with bibasilar atelectasis versus infiltrate. Also had peribronchial thickening which could represent bronchitis. And pulmonary calcified nodule likely granuloma. He has been admitted to be managed for CHF exacerbation and NSTEMI. [] Past Medical History Past Medical History (Chronic Problems): Chronic Problems Hypothyroidism (Chronic) Afib (Chronic) HTN (hypertension) (Chronic) Hx of CABG (Chronic) DM2 (diabetes mellitus, type 2) (Chronic) CAD (coronary artery disease) (Chronic) Allergies simvastatin Adverse Reaction (Verified 12/08/17 03:41) MUSCLE ACHES PATIENT REPORTED IN ED THAT PATIENT EXPERIENCED MUSCLE PAIN ON SIMVASTATIN Home Medications: Ambulatory Orders Medication Instructions Recorded Atenolol 100 mg PO BID 09/19/13 Levothyroxine 50 mcg PO DAILY 09/19/13 Lisinopril 40 mg PO BID 09/19/13 Vitamin D 2,000 units PO DAILY 09/19/13 Surgical History: coronary bypass surgery Psychiatric History: No pertinent psych hx Lives: Spouse/ Significant Other Smoking Status: Never smoker Alcohol: None Drugs: None - *Family History Paternal History Items: No pertinent history Review of Systems Constitutional: Denies: Chills, Fever, Night Sweats, Weight Change HEENT: Denies: Head Aches, Sinus Congestion, Sinus Drainage Cardiovascular: Reports: Chest Pain, Chest Pressure. Denies: Chest Tightness, Edema, Heaviness, Light Headedness, Orthopnea, Palpitations, Paroxysmal Noc. Dyspnea, Syncope Respiratory: Reports: Cough, Shortness of Breath, Shortness of breath upon exertion, Wheezing. Denies: Hemoptysis, Pleuritic Pain, Shortness of breath at rest Gastrointestinal: Denies: Abdominal Pain, Diarrhea, Nausea, Vomiting Genitourinary: Denies: Dysuria Musculoskeletal: Denies: Joint Pain, Joint Tenderness Skin: Reports: Dryness Neurological: Denies: Numbness, Tingling, Focal weakness Psychiatric: Denies: Anxiety, Depression, Homicidal Ideations, Suicidal Ideations Hematologic/ Lymphatic: Denies: Easy Bruising, Easy Bleeding VTE Information - Inpt Only VTE Present on Admission: No VTE Mechan Device Prophylaxis: SCD's Patient Problems: Active and Suspected Problems Chest pain (Acute) - Physical Exam General: Alert, Oriented x3, Cooperative, No apparent distress HEENT: Atraumatic, PERRLA, EOMI, Normocephalic Oral: Moist Mucosa Neck: Supple, No JVD, Negative Carotid Bruits Lungs: Diminished, Short of Breath, Wheezes, - - decreased breath sounds bibasally with fine crackles in mid and lower lung [place] Cardiovascular: Normal S1, Normal S2, No murmurs, Irregular Rate - and rhythm Abdomen: Bowel Sounds Present, Soft, Non Tender, Non-Distended, No Hepato-splenomegaly Extremities: No clubbing, No cyanosis, No Calf Tenderness, - - minimal pitting edema in LEs Skin: No rashes, No breakdown Musculoskeletal: No Tenderness to Palpation of Joints or Extremities Lymphatic: No Cervical, Supraclavicular, or Inguinal Adenopathy Neurological: Cranial nerves II-XII grossly intact, Neuro grossly intact, Motor Exam 5/5 strength throughout Psych/Mental Status: Normal Affect, Appropriate, Alert and oriented to time, place, person, mood and affect Vital Signs Temp Pulse Resp BP Pulse Ox 97.9 F 60 25 H 158/93 H 93 12/08/17 03:38 12/08/17 04:28 12/08/17 04:22 12/08/17 04:28 12/08/17 04:22 Oxygen Flow Rate (L/min) 2 Oxygen Delivery Method Nasal Cannula Weight: 195 lb 1.745 oz Body Mass Index (BMI) 30.5 Finger Stick Blood Glucose 27 Laboratory Tests Past 24 Hrs WBC 8.5 WBC RBC Hgb Hct MCV MCH MCHC RDW RDW Differential Plt Count MPV Immature Gran % (Auto) Neut % (Auto) Lymph % (Auto) Diagnostic Data Chest X-Ray 12/08/17 04:00 IMPRESSION: Cardiomegaly. Pulmonary vascular congestion/edema. No focal consolidation. Basilar atelectasis/infiltrate. There is areas of peribronchial thickening. This could represent bronchitis in the appropriate clinical setting. Electronically Signed: Ruben Haroon, at 4:18 EDT Tel , Service support , Assessment/Plan All Active Problems Chest pain (Acute) Hypoglycemia (Acute) Acute encephalopathy (Acute) 77-year-old male admitted with history of chest pain which started 30 minutes prior to admission with associated shortness of breath. 1. HFrEF with acute exacerbation * no known history of CHF * 2D echo(2012); EF of 40%, normal LV and RV size. Mild segmental systolic dysfunction, severely enlarged left atrium. RVSP of 25mmHg * admit to PCU with telemetry * BNP was 923 * CXR: pulmonary vascular congestion and cardiomegaly * EKG: Afib with lateral leads T wave inversion * IV lasix 40mg bid * 2D echo * cardiology consult * check TSH 2. NSTEMI * initial troponin is 0.77; will cycle * check lipid panel and A1C * SL nitroglycerin prn; on aspirin 325mg daily * cardiology consult * patient already on coumadin; wont give heparin * 3. Acute hypoxic respiratory failure due to CHF exacerbation * tachypneic, with respiratory rate 25-27 * required 3L of oxygen to maintain saturation of 94% * titrate oxygen to maintain saturation >92% * breathing treatment * 4. Hypertensive urgency * BP is 170/111, and patient is SOB and has chest pain * continue home meds- lisinopril and atenolol * IV hydralazine 10mg q6prn for BP>160/110 * 5. Diabetes mellitus * On Lantus 40 units daily and NovoLog insulin. * Will hold long-acting insulin and start insulin sliding scale as patient is being kept n.p.o. for possible cath by cardiology. * Checks every 6 as patient is n.p.o. * Check A1c * 6. CAD s/p stent x 3 and CABG * CABG and stents done 20 years ago * Does not see a precision aircraft systems assembler. On aspirin 325 mg daily * Check lipid panel * 7. Afib * Rate controlled * On atenolol 100 mg twice daily. Does not see a precision aircraft systems assembler in A. fib and CAD and managed by his primary care doctor. * On Coumadin 4 mg daily. INR is 1.9. * 8. CKD 3 * Cr is 1.78; baseline 1.6 * will monitor 8. Hyponatremia * Na is 135; likely hypervolemic hypotonic hypernatremia from fluid overload with CHF * will monitor for improvement with diuresis * DVT prophylaxis: on coumadin; SCDs Code status: DNR CCA * Counseled about differences between full code, DNR CCA and DNR CCA. Patient elects to be DNR CCA. Total [id number] time 17 minutes. Code Visit Inpatient E AND M: 06649 Init Hosp L3 Procedures: 43487 Advncd Care Plan 30 Min 12/08/17 0608 <Electronically signed by Phylicia Rowan MD> Date Phylicia Rowan MD Cosigner Signature: Date (if applicable) CC: Phylicia Rowan MD; Kyle Silva MD Signed EMERGENCY DEPARTMENT Observed: 12/08/2017 Status: F Source: [place] SUMMARY 5:12 AM [facility] RE[facility] Medical Records Department [address] [place] [address] Emergency Department Summary 12/08/17 0443 MR#: [id number] Acct: [id number] Name: EDMUNDO ALEJANDRA Rep #: [id number] : 1940 77 From: Devin Jones MD PCP: Ricardo NOWKA,Kyle Mandujano Status: ADM IN - ER Visit Summary Date of Service: 12/08/17 Chief Complaint: [] Chest pain History of Present Illness: The patient is a 77 M complaining of chest pain started 30 minutes ago at rest. He was laying down trying to sleep and could not. He has a heaviness in his substernal region. Current severity is mild. He has been having some coughing and hard breathing over the last week. Last couple days he has had sinus congestion. He is on Coumadin for history of A. fib. Has a history of coronary artery disease status post CABG 20 years ago. He does not have a precision aircraft systems assembler. He takes a full aspirin and Coumadin daily. He has diabetes as well. Physical Examination: Vital signs reviewed General: Well-nourished well-developed Head: Normocephalic atraumatic Eyes: Pupils equal round and reactive to light extraocular movements intact ENT: TMs clear no hemotympanum no trauma Neck: Nontender full range of motion Cardiovascular: Irregular rhythm with normal rate no murmurs normal S1-S2 Respiratory: Mild tachypnea. Mild wheezing in the bases bilateral no rales or rhonchi. Chest nontender Abdomen: Soft nontender nondistended normal bowel sounds no masses Back: Nontender no CVA tenderness Extremities: Nontender active range of motion 4 extremities no trauma Skin: Normal color no trauma Neuro alert oriented cranial nerves II through XII intact normal strength sensation reflexes Test Results: [] Emergency Department Course and Treatment: [] EKG shows atrial fibrillation with a rate of 58. ST depression V5 V6 T wave inversion in lead I. No STEMI. CBC normal. Chemistries normal except sodium 135 creatinine 1.78 glucose 288. Patient has chronic diabetes with hyperglycemia tonight. Troponin 0 0.77. This is elevated from previous normal in the past. BNP 923. Chest x-ray shows mild vascular congestion with peribronchial thickening. INR is 1.9. Patient given oral aspirin placed on nasal cannula oxygen. Given sublingual nitroglycerin with complete resolution of his chest discomfort. Given IV Lasix 20 mg IV for his mild CHF. Blood pressure down to 145/70 after nitro. Discussed with the precision aircraft systems assembler Dr. Melendez because the hospitalist. Given the fact that the patient's INR is 1.9 we will hold off on using heparin per cardiology if the patient is pain-free which he is. Be admitted and seen by cardiology on the floors. At this time I think he had a acute bronchitis that likely caused him to have some cardiac complications Treatment Plan: [] Disposition: [] Impression: [] Non-ST elevation myocardial infarction CHF secondary to non-ST elevation myocardial infarction Chronic renal insufficiency Acute bronchitis Diabetes with hyperglycemia Critical care time 74 minutes This note was generated with Skycheckination software. It may contain incorrect words, spelling, and punctuation that were not noted in review of the chart prior to signing ED Disposition - Plan for ED Patient: Chief Complaint: Chest Pain Referrals: Kyle Silva Chi, MD [Primary Care Provider] - What to do if you have Problems For any increased pain, shortness of breath, bleeding, nausea or vomiting, chest pain, or any unexpected problems, contact your Primary Care Provider. Call [employer] [facility] ([phone]) or report to the closest Emergency Room. Call 911 if necessary. 12/08/17 0512 <Electronically signed by Devin Jones MD> Date Devin Jones MD Cosigner Signature (If Indicated): Date CC: Kyle Silva MD CHEST PA AND LATERAL Observed: 12/08/2017 Status: F Source: [place] 3:52 AM [facility] Imaging Services [facility] [place] [address] Chest PA and Lateral MR#: [id number] Acct: [id number] Name: EDMUNDO ALEJANDRA Rep #: [id number] : 1940 M 77 From: Ruben Patiño MD PCP: Kyle Silva MD, Chi Status: REG ER Study: Chest PA and Lateral Date of Exam: 12/08/17 Exam# [id number] Ordering Dr: Devin Jones MD STUDY: X-RAY CHEST REASON FOR EXAM: Male, 77 years old. Chest pain TECHNIQUE: Frontal and lateral views of the chest. COMPARISON: None. FINDINGS: Cardiomegaly. Status post median sternotomy. Calcified aorta. Vascular congestion. No pneumothorax. No pleural effusion. Basilar atelectasis/infiltrate. No focal consolidation. Peribronchial thickening could represent bronchitis. Pulmonary calcified nodule. Likely granuloma. There are diffuse degenerative changes of the visualized thoracic spine. Osteopenia. There is degenerative osteoarthritis of the bilateral shoulders. There is no demonstrated abnormality of the visualized soft tissue structures of the upper abdomen. RAD/Chest PA and Lateral IMPRESSION: Cardiomegaly. Pulmonary vascular congestion/edema. No focal consolidation. Basilar atelectasis/infiltrate. There is areas of peribronchial thickening. This could represent bronchitis in the appropriate clinical setting. Electronically Signed: Ruben Sotoford, at 4:18 EDT Tel , Service support , CC: Devin Jones MD; Kyle Silva MD Press Tender Smoke Signal: Signed CBC W/DIFF, AUTOMATED Collected: 12/08/2017 Status: F Source: [place] 3:45 AM [facility]POS[facility] TYPE CODE TESTS RESULT OUT OF RANGE REFERENCE UNITS LAB L100.1000 4.4-11.0 K/mm3 Normal WBC 8.5 LAB L100.1200 4.6-6.2 M/mm3 Normal RBC 4.61 LAB L100.1300 13.0-16.5 g/dl Normal HGB 14.2 LAB L100.1400 40-54 % Normal HCT 41.3 LAB L100.1500 80-94 fL Normal MCV 89.6 LAB L100.1600 27.0-32.0 pg Normal MCH 30.8 LAB L100.1700 32-36 g/gl Normal MCHC 34.4 LAB L100.1810 11.6-14.6 % Normal RDW CV 13.8 LAB L100.1820 35.1-43.9 fl High RDW SD 44.6 LAB L100.1900 150-450 K/mm3 Normal PLT 257 LAB L100.2000 6.2-12.0 fl Normal MPV 10.8 LAB L100.2100 47-70 % Normal NEUT% 47.3 LAB L100.2200 19-41 % Normal LY% 32.7 LAB L100.2300 0-10 % High MONO% 14.8 LAB L100.2400 0-5 % Normal EO% 4.2 LAB L100.2500 0-1 % Normal BASO% 0.8 LAB L100.2550 0.0-0.9 % Normal IM GRAN % 0.200 Result Comment: IG% - Immature Granulocytes (promyelocytes, myelocytes and metamyelocytes) > 1% indicates that a LEFT SHIFT is Present. LAB L100.2620 2.0-7.7 X10 3/uL Normal Absolute Neut 4.0 LAB L100.2720 0.83-4.51 X10 3/ul Normal Absolute Lymph 2.78 Performed By: #### L100.0100 #### [facility] [address] [place], [address] BASIC METABOLIC Collected: 12/08/2017 Status: F Source: [place] PROFILE (BMP) 3:45 AM [facility] REPOS[facility] TYPE CODE TESTS RESULT OUT OF RANGE REFERENCE UNITS LAB L501.0100 74-106 mg/dL High GLU 288 Result Comment: Glucose result greater than or equal to 200 mg/dL suggests DIABETES MELLITUS per A.D.A. criteria. Please note revised GLUCOSE reference range effective 2017. LAB L501.1000 7-18 mg/dL High BUN 24 LAB L501.1100 0.70-1.30 mg/dL High CREAT,SERUM 1.78 Result Comment: The validity of the calculated GFR AND GFRAA in patients over 70 years has not been determined. Clinical correlation is essential. LAB L501.1110 >60 mL/min Low EST GFR 40 Result Comment: Non- GFR Calc LAB L501.1115 >60 mL/min Low EST GFR - AA 48 Result Comment: GFR Calc LAB L501.1255 ml/min Normal Estimated CRCL 32.49 LAB L501.1300 10-20 RATIO Normal BUN/CRE 13.5 LAB L501.2200 8.5-10 mg/dL Low .1 CA 8.4 LAB L501.5300 136-14 mmol/L Low 5 NA 135 Result Comment: Critical Result(s) Called at: 04:19:23 12/08/2017 by: HENRI PURCELL TO DHYNEK LAB L501.5600 3.5-5.1 mmol/L Normal K 4.7 LAB L501.5900 98-107 mmol/L Normal CL 101 LAB L501.6100 21.0-32.0 mmol/L Normal CO2 28.0 LAB L501.6200 5-15 Normal 6 GAP Performed By: #### L500.2500, L501.4010 #### [facility] [address] [facility] [place], [address] TROPONIN-I Collected: 12/08/2017 Status: F Source: [place] 3:45 AM [facility] REPOSITORY TYPE CODE TESTS RESULT OUT OF RANGE REFERENCE UNITS LAB L501.4010 <0.045 ng/mL High alert 0.777 TROPONIN-I Result Comment: TROPONIN-I EXPECTED VALUES <0.045 Negative 0.045 - 0.590 Consistent with Cardiac Damage > OR = 0.600 Critical Value Not every elevated troponin is indicative of GA. These values should be used with clinical judgement in examining the patient's clinical picture for diagnosis. To establish a diagnosis of GA versus myocardial injury, there must be a demonstrated rise and/or fall in the troponin values, in addition to ischemic symptoms, EKG changes, new regional wall motion abnormality, and/or angiographical evidence. PLEASE NOTE: REFERENCE RANGES EDITED 17 Performed By: #### L500.2500, L501.4010 #### [facility] [address], [place], [id number] PROTHROMBIN TIME W/INR Collected: 12/08/2017 Status: F Source: [place] 3:45 AM [facility] REPOSITORY TYPE CODE TESTS RESULT OUT OF RANGE REFERENCE UNITS LAB L300.4150 11.7-14.9 SECONDS High PROTIME 22.2 LAB L300.4200 Normal INR 1.9 Performed By: #### L300.3900 #### [facility] [address] [place], [address] BNP,B-TYPE NATRIURETIC Collected: 12/08/2017 Status: F Source: [place] 3:45 AM [facility] REPOSITORY TYPE CODE TESTS RESULT OUT OF RANGE REFERENCE UNITS LAB L503.6620 0-100 pg/mL High B-TYPE 923.7 LIZBETH PEP Performed By: #### L503.6620 #### [facility] [address] [place], [address] ALLERGIES ALLERGIES DATE TYPE / CODE NAME / CODE REACTION SEVERITY SOURCE 02/12/2018 Drug simvastatin/ MUSCLE ACHES Unknown [facility] Allergy/4160 [id number]([facility] [address](SNOMED XNORM) Repository CT) ENCOUNTERS ENCOUNTERS ADMIT/DISCHARGE ACCOUNT NUMBER ADMITTING ENCOUNTER LOCATION SOURCE CLASS 02/12/2018 [id number] [facility] [place], Inpatient ABuilding:[facility] Encounter URoom: Health 0315Bed: A [facility] Repository 02/12/2018/02/13/20 [id number] Emergency [address] ding:ED Repository 02/01/2018 [id number] Ambulatory [facility] ding:POLAB3 Repository 01/24/2018 [id number] Ambulatory [facility] ding:POLAB3 Repository 01/11/2018 [id number] Ambulatory [facility] ding:LAB Repository 01/10/2018 [id number] Ambulatory BMSBuilding: [facility] Repository 01/10/2018/01/11/20 [id number] Agyepong, Ambulatory [address] ding:PCURoom Repository : TPH294Foc: 1 01/10/2018 [id number] Agyepong, Ambulatory BMSBuilding: [facility] Repository 01/10/2018 [id number] Agyepong, Ambulatory BMSBuilding: [place] BMS.[facility] Repository 01/08/2018 [id number] Ambulatory [facility] ding:POLAB3 Repository 12/27/2017 [id number] Ambulatory [facility] ding:LAB Repository 12/13/2017 [id number] Ambulatory [facility] ding:POLAB3 Repository 12/08/2017/12/11/19 [id number] Phylicia [place]an Inpatient [place] [address] [facility] ding:PCURoom Repository : [id number]: 1 12/08/2017 [id number] AlecamPhylicia Ambulatory BMSBuilding: [place] [facility] BMS.[facility] Repository 12/08/2017 [id number] AlecamJodia Ambulatory BMSBuilding: [place] [facility] BMS.[facility] Repository 12/08/2017 [id number] AlecamJodia Ambulatory BMSBuilding: [place] [facility] BMS..[facility] Repository 12/08/2017 [id number] KoramJodia Ambulatory BMSBuilding: [place] [facility] BMS.[facility] Repository 12/08/2017 [id number] Jodi Rowana Ambulatory BMSBuilding: [place] [facility] BMS.[facility] Repository 12/08/2017/12/11/19 [id number] Ambulatory BMSBuilding: [address] Repository 12/08/2017/12/11/19 [id number] Ambulatory BMSBuilding: [address] Repository PAYERS PAYERS ENCOUNTER GUARANTOR PAYER SUBSCRIBER SOURCE 02/12/2018 [facility]: Insurance[facility] K[facility]: [facility] [id number] INSCOPolicy Number: [id number] Repository [address] [id number] [address] [place], [place] Date:2018-02-12 [place], [place] [address]Njq: [phone] [id number] [address]Tdp: () Name:[phone] 362Ad[facility] Health SystemgretchenWATERLOO, [place] ()Tel: 000) [phone]: (WP) [phone] 02/12/2018 Secondary EDMUNDO L [facility] Insurance:MEDICARE DUNCANDOB: Foundation PART A INSCOPolicy [id number] Repository Number: [address] [id number], [place] Date:2018-02-12 15961Tgt: 330 7162-52-20Meon Name:MMail Code (HP)Tel: [phone]) [phone] (WP) [id number], [place] [address]GU: 02/12/2018 EDMUNDO L Primary EDMUNDO L [place] [id number] Insurance:SUMMA CARE DUNCANB: Community [place] MEDICAREPolicy [id number] Number: Repository [address]Nzx: 330 [id number] () Date:4986-58-04ZD [address] [place] [address]88[address]KJ: 02/12/2018 Secondary NOT GIVENUNK [place] Insurance:SELF PAY [facility] Number: Effective Repository Date:2018-02-12 02/01/2018 EDMUNDO L Primary EDMUNDO L [place] [id number] Insurance:[facility]: Community [place] MEDICAREPolicy [id number], [place] Number: Repository [address]Obl: 330 [id number] () Date:5189-53-15RQ [address] [place] [address] 31156SO: 02/01/2018 Secondary NOT GIVENUNK [place] Insurance:SELF PAY [facility] Number: Effective Repository Date:2018-02-01 01/24/2018 EDMUNDO L Primary EDMUNDO L [place] [id number] Insurance:[facility]ARE [facility]: Community [place] MEDICAREPolicy [id number] Number: Repository [id number]: (330 [id number] (HP) Date:6699-60-25CV [address] [place] [address] 871[address]HD: 01/24/2018 Secondary NOT GIVENUNK [place] Insurance:SELF PAY [facility] Number: Effective Repository Date:2018-01-24 01/11/2018 EDMUNDO L Primary EDMUNDO L [place] [id number] Insurance:SUMMA CARE DUNCANDOB: Community [address] RDBIG MEDICAREPolicy [id number], [place] Number: Repository [address]Fdg: 330 [id number] (HP) Date:8008-88-52XA [address] [place] [address] 97068PY: 01/11/2018 Secondary NOT GIVENUNK [place] Insurance:SELF PAY [facility] Number: Effective Repository Date:2018-01-11 01/10/2018 EDMUNDO L Primary EDMUNDO L [place] [id number] Insurance:SUMMA CARE DUNCANDOB: Community [address] R[address] MEDICAREPolicy [id number], [place] Number: Repository [address]Xhj: 330 [id number] (HP) Date:4674-10-22YV [address] [place] [address] 54131BM: 01/10/2018 Secondary NOT GIVENUNK [place] Insurance:SELF PAY [facility] Number: Effective Repository Date:2018-01-10 01/10/2018 EDMUNDO L Primary EDMUNDO L [place] [id number] Insurance:SUMMA CARE DUNCANDOB: Community [address] MEDICAREPolicy [id number], [place] Number: Repository [address]Hng: 330 [id number] (HP) Date:3633-37-78BC [address] [place] [address] 36091YC: 01/10/2018 Secondary NOT GIVENUNK [place] Insurance:SELF PAY [facility] Number: Effective Repository Date:2018-01-10 01/10/2018 EDMUNDO L Primary EDMUNDO L [place] [id number] Insurance:SUMMA CARE MARCODOB: [facility] MEDICAREPolgeorge [facility] [id number], [place] Number: Repository [address]Xdq: (330) [id number] (HP) Date:1337-51-32DR [address] [place] [address] 28834SP: 01/10/2018 Secondary NOT GIVENUNK [place] Insurance:SELF PAY [facility] Number: Effective Repository Date:2018-01-10 01/10/2018 EDMUNDO L Primary EDMUNDO L [place] [id number] Insurance:SUMMA CARE MARCODOB: Community [place] [address] MEDICAREPolicy [id number], [place] Number: Repository [address]Mfs: (330) [id number] (HP) Date:3108-26-37KF [address] [place] [address] 44332IJ: 01/10/2018 Secondary NOT GIVENUNK [place] Insurance:SELF PAY [facility] Number: Effective Repository Date:2018-01-10 01/08/2018 EDMUNDO L Primary EDMUNDO L [place] [id number] Insurance:SUMMA CARE MARCODOB: Community [place] [address] MEDICAREPolicy [id number], [place] Number: Repository [address]Oli: (330) [id number] (HP) Date:3838-34-60TG [address] [place] [address] 97350KX: 01/08/2018 Secondary NOT GIVENUNK [place] Insurance:SELF PAY [facility] Number: Effective Repository Date:2018-01-08 12/27/2017 EDMUNDO L Primary EDMUNDO L [place] [id number] Insurance:SUMMA CARE MARCODOB: Community [place] [address] MEDICAREPolicy [id number], [place] Number: Repository [address]Fcw: (330) [id number] (HP) Date:8905-05-16WE [address] [place] [address] 58102ZR: 12/27/2017 Secondary NOT GIVENUNK [place] Insurance:SELF PAY [facility] Number: Effective Repository Date:2017-12-27 12/13/2017 EDMUNDO L Primary EDMUNDO L [place] [id number] Insurance:SUMMA CARE DUNCANDOB: [facility] ROGELIOPRESBYTERIAN [facility] MEDICAREPolic [id number], [place] Number: Repository [address]Dir: 330 [id number] () Date:8391-54-05SE [address] [place] [address] 45565KL: 12/13/2017 Secondary NOT GIVENUNK [place] Insurance:SELF PAY [facility] Number: Effective Repository Date:2017-12-13 12/08/2017 EDMUNDO L Primary EDMUNDO L [place] [id number] Insurance:SUMMA CARE DUNCANDOB: Community [place] [address] MEDICAREPolicy [id number], [place] Number: Repository [address]Fga: (330 [id number] () Date:7259-45-36ZX [address] [place] [address] 30701RR: 12/08/2017 Secondary NOT GIVENUNK [place] Insurance:SELF PAY [facility] Number: Effective Repository Date:2017-12-08 12/08/2017 Edmundo L Primary Edmundo L [place] [id number] Insurance:SUMMA CARE MarcoDOB: Community [address] MEDICAREPolicy [id number], [place] Number: Repository [address]Nhd: (330 [id number] (HP) Date:7863-02-22BR [address] [place] [address] 93796BH: 12/08/2017 Secondary NOT GIVENUNK [place] Insurance:SELF PAY [facility] Number: Effective Repository Date:2017-12-08 12/08/2017 Edmundo L Primary Edmundo L [place] [id number] Insurance:SUMMA CARE DuncanDOB: Community [address] MEDICAREPolicy [id number], [place] Number: Repository [address]Umf: (330) [id number] (HP) Date:5279-02-63ZZ BOX [facility] COMMUN[facility] HOSPITALGRET[place] [address]JH: 12/08/2017 Secondary NOT GIVENUNK [place] Insurance:SELF PAY [facility] Number: Effective Repository Date:2017-12-08 12/08/2017 Edmundo L Primary Edmundo L [place] [id number] Insurance:SUMMA CARE DuncanDOB: Community [address] MEDICAREPolicy [id number], [place] Number: Repository [address]Cqn: (330 [id number] (HP) Date:8681-11-08OG [address] [place] [address] 26012LM: 12/08/2017 Secondary NOT GIVENUNK [place] Insurance:SELF PAY [facility] Number: Effective Repository Date:2017-12-08 12/08/2017 Edmundo L Primary Edmundo L [place] [id number] Insurance:SUMMA CARE DuncanDOB: Community [address] MEDICAREPolicy [id number], [place] Number: Repository [address]Zdx: (330 [id number] (HP) Date:5558-35-71WW [address] [place] [address] 94585TK: 12/08/2017 Secondary NOT GIVENUNK [place] Insurance:SELF PAY [facility] Number: Effective Repository Date:2017-12-08 12/08/2017 EDMUNDO L Primary EDMUNDO L [place] [id number] Insurance:SUMMA CARE DUNCANDOB: Community [address] MEDICAREPolicy [id number], [place] Number: Repository [address]Omi: (330 [id number] (HP) Date:0162-41-05ZP [address] [place] [address] 27226WG: 12/08/2017 Secondary NOT GIVENUNK [place] Insurance:SELF PAY [facility] Number: Effective Repository Date:2017-12-08 12/08/2017 EDMUNDO L Primary EDMUNDO Raghavendra [place] [id number] Insurance:[facility] GRADYB: [facility] OWENBIG MEDICAREPolicy [id number], [place] Number: Repository 238[address]Xaj: 330 [id number] 04 (HP) Date:5035-50-10LE [address] [place] [address] 59635UU: 12/08/2017 Secondary NOT GIVENUNK [place] Insurance:SELF PAY [facility] Number: Effective Repository Date:2017-12-08 12/08/2017 EDMUNDO L Primary EDMUNDO Raghavendra [place] [id number] Insurance:[facility] GRADYB: Community [address] [address] MEDICAREPolicy [id number], [place] Number: Repository [address]Jgs: 330 [id number] 53 (HP) Date:4442-63-06NC [address] [place] [address] 70871KZ: 12/08/2017 Secondary NOT GIVENUNK [place] Insurance:SELF PAY [facility] Number: Effective Repository Date:2017-12-08
== END ==
PROVIDERS: Family Provider Family Medicine Geriatric Medicine; PCP Family Medicine Geriatric Medicine; Visit Provider Family Medicine Geriatric Medicine
DX: E11.9 Type 2 diabetes mellitus without complications (principal); E55.9 Vitamin D deficiency, unspecified; I10 Essential (primary) hypertension
CPT/HCPCS: 36415; 80053; 82306; 84443; 85025

== ENCOUNTER → 2018-02-01 11:40 | Outpatient (CLI) | payer MEDICARE, SELFPAY ==
[2018-01-10 07:37] VITALS: BMI 28.8
[2018-02-01 12:53] LABS: Anion Gap 6 (5-15); BUN 22 mg/dL (7-18); BUN/Creat Ratio 12.6 RATIO (10-20); Chloride 100 mmol/L (98-107); Creatinine, Serum 1.74 mg/dL (0.70-1.30); EST Glomerular Filtration Rate 41 mL/min (>60); Est Glom Filt Rate - Afr Amer 49 mL/min (>60); Glucose 67 mg/dL (74-106); Potassium 3.7 mmol/L (3.5-5.1); Sodium Level 140 mmol/L (136-145)
== END ==
PROVIDERS: Family Provider Family Medicine Geriatric Medicine; PCP Family Medicine Geriatric Medicine; Visit Provider Family Medicine Geriatric Medicine
DX: E03.9 Hypothyroidism, unspecified (principal); I50.23 Acute on chronic systolic (congestive) heart failure
CPT/HCPCS: 36415; 80048; 84443

== ENCOUNTER 2018-02-12 03:37 | Emergency (ER) | payer MEDICARE, SELFPAY ==
[2018-01-10 07:37] VITALS: BMI 28.8
[2018-02-12] VITALS (8 sets, daily range): BP systolic 131–145; BP diastolic 75–98; PULSE 62–73; RESP 17–24; TEMP 36.6; O2SAT 93–97; BMI 29.5
--- NOTE | 2018-02-12 03:41 | ED.RN ---
CALLED FOR EKG PER RN REQUEST, PULLED OLD EKGS FOR
--- NOTE | 2018-02-12 03:47 | RAD_ITS ---
STUDY: X-RAY CHEST REASON FOR EXAM: Male, 77 years old. Trauma TECHNIQUE: Frontal view COMPARISON: 01/10/2018 FINDINGS: The lungs are expanded. There are chronic fibrotic changes. There are NO acute infiltrates. There is NO pleural effusion or pneumothorax. The heart is borderline enlarged. There has been open heart surgery. Normal visualized pulmonary arteries. There is calcified plaque in the thoracic aorta. Normal visualized thoracic spine. Normal visualized ribs, clavicles, and shoulders. There is no demonstrated abnormality of the visualized soft tissue structures of the upper abdomen. RAD/Chest 1 View (Portable) IMPRESSION: The lungs are expanded. There are chronic fibrotic changes. There are NO acute infiltrates. There is NO pleural effusion or pneumothorax. The heart is borderline enlarged. Electronically Signed: Mic Almaguer MD at 4:15 EST , Service support ,
--- NOTE | 2018-02-12 03:47 | EKG12_ITS ---
Test Reason : CP Blood Pressure : / mmHG Vent. Rate : 069 BPM Atrial Rate : 063 BPM P-R Int : 000 ms QRS Dur : 152 ms QT Int : 478 ms P-R-T Axes : 000 -06 197 degrees QTc Int : 512 ms Atrial fibrillation Left bundle branch block Abnormal ECG Confirmed by JUAN NOWAK, LEONARD ([id number]), makeup editor MISAEL HOPE ([id number]) on 02/15/2018 1:30:41 PM Referred By: RACHEL Confirmed By:LEONARD MARTINEZ MD
--- NOTE | 2018-02-12 04:05 | ED.RN ---
THE MAR WOULD NOT LET ME DOCUMENT THE 3RD NITRO GIVEN. BP IS 128/710, PULSE IS 60. PATIENT IS RATING PAIN PRIOR TO THE LAST NITRO AT 06/05. 3RD NITRO GIVEN NOW.
[2018-02-12 04:17] LABS: Absolute Neutrophil Count 3.1 X10^3/uL (2.0-7.7); Basophil# 0.04 X10^3/uL; Basophil% 0.6 % (0-1); Eosinophil# 0.26 X10^3/uL; Eosinophils% 4.2 % (0-5); Hematocrit 38.2 % (40-54); Hemoglobin 12.9 g/dl (13.0-16.5); Lymphocyte % 35.4 % (19-41); Mean Corp Hgb Conc 33.8 g/gl (32-36); Mean Corpuscular Volume 88.8 fL (80-94); Mean Platelet Vol. 10.7 fl (6.2-12.0); Monocyte# 0.62 X10^3/uL; Neutrophil # 3.09 X10^3/uL (2.7-7.7); Neutrophil % 49.6 % (47-70); POSITIVE COUNT NO; POSITIVE DIFFERENTIAL NO; POSITIVE MORPHOLOGY NO; Platelet Count 257 K/mm3 (150-450); RBC Distribution Width CV 13.9 % (11.6-14.6); RBC Distribution Width SD 45.4 fl (35.1-43.9); White Blood Count 6.2 K/mm3 (4.4-11.0)
[2018-02-12 04:21] LABS: International Normalized Ratio 2.7; Prothrombin Time (Protime)PT. 28.5 SECONDS (11.7-14.9)
--- NOTE | 2018-02-12 04:21 | ED.RN ---
PATIENT HAS PAIN OF 1/10 ON THE PAIN SCALE AFTER THE 3RD NITROGLYCERIN. VITALS STABLE BP 122/66, PULSE 62 AFTER.
[2018-02-12 04:37] LABS: Anion Gap 12 (5-15); BUN 31 mg/dL (7-18); Calcium,Total 8.9 mg/dL (8.5-10.1); Chloride 95 mmol/L (98-107); Creatinine, Serum 2.21 mg/dL (0.70-1.30); EST Glomerular Filtration Rate 31 mL/min (>60); Est Glom Filt Rate - Afr Amer 37 mL/min (>60); Estimated Creatinine Clearance 26.17 ml/min; Glucose 477 mg/dL (74-106); Potassium 4.5 mmol/L (3.5-5.1); Sodium Level 135 mmol/L (136-145)
--- NOTE | 2018-02-12 04:52 | ED.VISSUMM ---
- ER Visit Summary Date of Service: 02/12/18 Chief Complaint: Angina History of Present Illness: The patient is a 77 M presents to the emergency department with bilateral shoulder pain going across his back. Symptoms began at 010 0 hours tonight and have been constant. He notes shortness of breath. He states that he has a history of coronary artery disease and has had stents. Also history of diabetes and hypertension and chronic A. fib. His microfilming document preparer is Dr. Mandujano at [place]. The patient was admitted 01/10 at [facility]. His initial troponin was negative however his second troponin was elevated at 5 and he was noted to have nonsustained V. tach on the monitor. Patient signed out AGAINST MEDICAL ADVICE. When I asked him why he states that he was wasting his time here. He tells me that they wanted to do a heart catheterization but he said he would rather have that done at [place]. The patient has not yet followed up. He is hoping to make a follow-up appointment sometime in the upcoming year. He states that unfortunately he did not make it to that appointment and needed to come here today. Physical Examination: Afebrile vital signs are stable Gen: Well-nourished well-developed Head: Normocephalic atraumatic Eyes: Perrl EOMI ENT: TMs clear no rhinorrhea moist mucous membranes Neck: Supple no lymphadenopathy no JVD nontender CVS: Regular rate rhythm no murmurs normal S1-S2 Respiratory: No distress clear to auscultation bilaterally chest nontender Abdomen: Soft nontender nondistended normal bowel sounds no masses Back: Nontender Extremity: Nontender no edema Skin: Normal color no rash Neuro: alert orientated ?3 CN II-XII intact normal strength sensation reflexes gait cerebellar Test Results: EKG shows atrial fibrillation with a left bundle branch block at a rate of 69. White count 6.2 hemoglobin 9. Creatinine off of its baseline 2.21 today. Glucose 477. INR 2.7. Troponin less than 0.015. Chest x-ray showed no acute findings. Emergency Department Course and Treatment: Patient received nitroglycerin and his pain resolved. He also received aspirin Lovenox IV fluids and insulin. I spoke with the patient and he would like to be transferred to [facility]. I have contacted [facility]'s transfer line at 0455 hours. Impression: 1. Unstable angina 2. Uncontrolled diabetes This note was generated with [employer] dictation software. It may contain incorrect words, spelling, and punctuation that were not noted in review of the chart prior to signing ED Disposition - Plan for ED Patient: Chief Complaint: Chest Pain Referrals: Kyle Silva Chi, MD [Primary Care Provider] -
[2018-02-12] MEDS: Insulin Lispro 100 UNIT/ML INSULN.PEN 10 UNIT IV ×2 (04:57→05:56)
[2018-02-12] MEDS: 0.9% Normal Saline 1,000 ML 999 ML IV (04:57)
--- NOTE | 2018-02-12 04:58 | ED.DCSUM_ITS ---
- ER Visit Summary Date of Service: 02/12/18 Chief Complaint: Angina History of Present Illness: The patient is a 77 M presents to the emergency department with bilateral shoulder pain going across his back. Symptoms began at 010 0 hours tonight and have been constant. He notes shortness of breath. He states that he has a history of coronary artery disease and has had stents. Also history of diabetes and hypertension and chronic A. fib. His senior web architect is Dr. Mandujano at [place]. The patient was admitted 01/10 at [facility]. His initial troponin was negative however his second troponin was elevated at 5 and he was noted to have nonsustained V. tach on the monitor. Patient signed out AGAINST MEDICAL ADVICE. When I asked him why he states that he was wasting his time here. He tells me that they wanted to do a heart catheterization but he said he would rather have that done at [place]. The patient has not yet followed up. He is hoping to make a follow-up appointment sometime in the upcoming year. He states that unfortunately he did not make it to that appointment and needed to come here today. Physical Examination: Afebrile vital signs are stable Gen: Well-nourished well-developed Head: Normocephalic atraumatic Eyes: Perrl EOMI ENT: TMs clear no rhinorrhea moist mucous membranes Neck: Supple no lymphadenopathy no JVD nontender CVS: Regular rate rhythm no murmurs normal S1-S2 Respiratory: No distress clear to auscultation bilaterally chest nontender Abdomen: Soft nontender nondistended normal bowel sounds no masses Back: Nontender Extremity: Nontender no edema Skin: Normal color no rash Neuro: alert orientated ?3 CN II-XII intact normal strength sensation reflexes gait cerebellar Test Results: EKG shows atrial fibrillation with a left bundle branch block at a rate of 69. White count 6.2 hemoglobin 9. Creatinine off of its baseline 2.21 today. Glucose 477. INR 2.7. Troponin less than 0.015. Chest x-ray showed no acute findings. Emergency Department Course and Treatment: Patient received nitroglycerin and his pain resolved. He also received aspirin Lovenox IV fluids and insulin. I spoke with the patient and he would like to be transferred to [facility]. I have contacted [facility]'s transfer line at 0455 hours. Impression: 1. Unstable angina 2. Uncontrolled diabetes This note was generated with [employer] dictation software. It may contain incorrect words, spelling, and punctuation that were not noted in review of the chart prior to signing ED Disposition - Plan for ED Patient: Chief Complaint: Chest Pain Referrals: Kyle Silva Chi, MD [Primary Care Provider] -
[2018-02-12] MEDS: Enoxaparin 100 MG/ML Syringe 90 MG SC (04:59)
[2018-02-12] MEDS: Aspirin 325 MG Tablet PO (04:59)
[2018-02-12] MEDS: Nitroglycerin Oint 1 INCH PACKET TRANSDERM. (05:25)
[2018-02-12 06:00] LABS: Bedside Glucose 485 mg/dL (70-110)
--- NOTE | 2018-02-12 06:03 | ED.RN ---
REPORT GIVEN TO [facility] BEFORE PATIENT LEFT FOR [facility].
--- OUTSIDE RECORDS SUMMARY | 2018-05-16 10:46 | XMS RPT_ITS ---
:1940 Author Organization [place] Support Name Relationship Address Phone JEEVAN ALEJANDRA Unavailable [address] + [place] [address] POPEYE ALEJANDRA Unavailable [address] + [place] [address] R Unavailable Unavailable Unavailable JEEVAN ALEJANDRA Unavailable Unavailable + POPEYE ALEJANDRA Unavailable Unavailable + JEEVAN ALEJANDRA Unavailable [address] + [place] [address] POPEYE ALEJANDRA Unavailable [address] + [place] [address] R Unavailable Unavailable Unavailable JEEVAN ALEJANDRA Unavailable [address] + [place] [address] POPEYE ALEJANDRA Unavailable [address] + [place] [address] R Unavailable Unavailable Unavailable JEEVAN ALEJANDRA Unavailable [address] + [place] [address] POPEYE ALEJANDRA Unavailable [address] + [place] [address] R Unavailable Unavailable Unavailable JEEVAN ALEJANDRA Unavailable [address] + [place] [address] POPEYE ALEJANDRA Unavailable [address] + [place] [address] R Unavailable Unavailable Unavailable JEEVAN ALEJANDRA Unavailable [address] + [place] [address] POPEYE ALEJANDRA Unavailable [address] + [place] [address] R Unavailable Unavailable Unavailable ALEJANDRA, JEEVAN Unavailable [address] + [place] [address] ALEJANDRA, POPEYE Unavailable [address] + [place] [address] R Unavailable Unavailable Unavailable ALEJANDRA, OLIVE Unavailable [address] + [place] [address] [place], POPEYE Unavailable [address] + [place] [address] R Unavailable Unavailable Unavailable ALEJANDRA, OLIVE Unavailable [address] + [place] [address] [place], POPEYE Unavailable [address] + [place] [address] R Unavailable Unavailable Unavailable ALEJANDRA, OLIVE Unavailable [address] + [place] [address] [place], POPEYE Unavailable [address] + [place] [address] R Unavailable Unavailable Unavailable ALEJANDRA, OLIVE Unavailable [address] + [place] [address] [place], POPEYE Unavailable [address] + [place] [address] R Unavailable Unavailable Unavailable ALEJANDRA, OLIVE Unavailable [address] + [place] [address] [place], POPEYE Unavailable [address] + [place] [address] R Unavailable Unavailable Unavailable ALEJANDRA, OLIVE Unavailable [address] + [place] [address] [place], POPEYE Unavailable [address] + [place] [address] R Unavailable Unavailable Unavailable ALEJANDRA, OLIVE Unavailable [address] + [place] [address] [place], POPEYE Unavailable [address] + [place] [address] R Unavailable Unavailable Unavailable ALEJANDRA, OLIVE Unavailable [address] + [place] [address] ALEJANDRA, POPEYE Unavailable [address] + [place] [address] R Unavailable Unavailable Unavailable JEEVAN ALEJANDRA Unavailable [address] + [place] [address] OSMIN ALEJANDRATE Unavailable [address] + [place] [address] R Unavailable Unavailable Unavailable JEEVAN ALEJANDRA Unavailable [address] + [place] [address] [place] POPEYE Unavailable [address] + [place] [address] R Unavailable Unavailable Unavailable JEEVAN ALEJANDRA Unavailable [address] + [place] [address] OSMIN ALEJANDRATE Unavailable [address] + [place] [address] R Unavailable Unavailable Unavailable JEEVAN ALEJANDRA Unavailable [address] + [place] [address] [place] POPEYE Unavailable [address] + [place] [address] R Unavailable Unavailable Unavailable JEEVAN ALEJANDRA Unavailable [address] + [place] [address] [place] POPEYE Unavailable [address] + [place] [address] R Unavailable Unavailable Unavailable Care Team Providers Name Role Phone MACIE VILLAVICENCIO MD Admitting Unavailable MACIE VILLAVICENCIO MD Attending Unavailable RICARDO MONTAGUE, DR. RODRIGUES-CHI Primary Care Unavailable COLTON GALVAN MD Consulting Unavailable LEIGH MONTANEZ MD Consulting Unavailable TAMEKA MONTAGUE, DR. LERNER Consulting Unavailable Tong Davis Attending Unavailable Bryson Najera Referring Unavailable Jose J Lawrence Attending Unavailable Ricardo, Kyle Chi Primary Care Unavailable Ricardo, Kyle Chi Primary Care Unavailable Emma Salazar Attending Unavailable Ricardo, Kyle Chi Primary Care Unavailable Koram, Phylicia Digna Admitting Unavailable Paintsil, Randolph Attending Unavailable Rayna Melendez Consulting Unavailable Koram, Phylicia Digna Admitting Unavailable Koram, Phylicia Digna Attending Unavailable Ricardo, Kyle Chi Primary Care Unavailable Koram, Phylicia Digna Consulting Unavailable Koram, Phylicia Digna Admitting Unavailable Al, Rayna Attending Unavailable Ricardo, Kyle Chi Primary Care Unavailable Al, Rayna Consulting Unavailable Paintsil, Randolph Consulting Unavailable Koram, Phylicia Digna Admitting Unavailable Al, Rayna Attending Unavailable Ricardo, Kyle Chi Primary Care Unavailable Al, Rayna Consulting Unavailable Paintsil, Randolph Consulting Unavailable Koram, Phylicia Digna Admitting Unavailable Paintsil, Randolph Attending Unavailable Ricardo, Kyle Chi Primary Care Unavailable Al, Rayna Consulting Unavailable Paintsil, Randolph Consulting Unavailable Koram, Phylicia Digna Admitting Unavailable Paintsil, Randolph Attending Unavailable Ricardo, Kyle Chi Primary Care Unavailable Al, Rayna Consulting Unavailable Paintsil, Randolph Consulting Unavailable Ricardo, Kyle Chi Attending Unavailable Ricardo, Kyle Chi Primary Care Unavailable Ricardo, Kyle Chi Attending Unavailable Ricardo, Kyle Chi Referring Unavailable Ricardo, Kyle Chi Primary Care Unavailable Ruel Brink Attending Unavailable Koram, Phylicia Digna Referring Unavailable Tong Davis Attending Unavailable Paintsil, Randolph Referring Unavailable Ricardo, Kyle Chi Attending Unavailable Ricardo, Kyle Chi Primary Care Unavailable Ricardo, Kyle Chi Primary Care Unavailable JoeyyeBrad holder Admitting Unavailable Adam Victor Attending Unavailable AgyepongBrad Admitting Unavailable AgyepongBrad Attending Unavailable Ricardo, Kyle Chi Primary Care Unavailable Adam Victor Consulting Unavailable JoeyyesamuelgBrad Admitting Unavailable Adam Victor Attending Unavailable Ricardo, Kyle Chi Primary Care Unavailable MarilynkyAdam Consulting Unavailable Ricardo, Kyle Chi Attending Unavailable [...] - 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, Kyle Chi Active [facility] chronic systolic Community (congestive) heart Hospital failure / Repository I50.23(ICD-10) 02/08/2018 Unknown R07.9 - Chest pain, SusanMusa braunril Active [facility] unspecified / Community R07.9(ICD-10) Hospital Repository 02/08/2018 Unknown 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, [place] Active [facility] Atherosclerotic heart Community disease of [facility] coronary artery Repository without angina pectoris / I25.10(ICD-10) 02/08/2018 Unknown I48.91 - Unspecified Susan, [place] Active [facility] atrial fibrillation / Community I48.91(ICD-10) Hospital Repository 12/27/2017 Unknown E03.9 - Kyle Silva Chi Active [facility] Hypothyroidism, Community unspecified / Hospital E03.9(ICD-10) Repository 12/27/2017 Unknown R94.31 - Abnormal [place], Active [facility] electrocardiogram [facility] [ECG] [EKG] / Hospital R94.31(ICD-10) Repository PROCEDURES PROCEDURES No Procedure Records FoundRESULTS RESULTS EMERGENCY DEPARTMENT Observed: 02/18/2018 Status: F Source: [facility] SUMMARY 7:03 AM [facility] REPOSITORY [facility] Medical Records Department [address] [place] [address] Emergency Department Summary 02/12/18 0452 MR#: [id number] Acct: [id number] Name: EDMUNDO ALEJANDRA Rep #: [id number] : 1940 77 From: Jose J Lawrence DO PCP: Kyle Silva MD, Chi Status: DEP ER - ER Visit Summary Date of Service: 02/12/18 Chief Complaint: Angina History of Present Illness: The patient is a 77 M presents to the emergency department with bilateral shoulder pain going across his back. Symptoms began at 010 0 hours tonight and have been constant. He notes shortness of breath. He states that he has a history of coronary artery disease and has had stents. Also history of diabetes and hypertension and chronic A. fib. His independent living instructor is Dr. Mandujano at [place]. The patient was admitted 01/10 at [facility]. His initial troponin was negative however his second troponin was elevated at 5 and he was noted to have nonsustained V. tach on the monitor. Patient signed out AGAINST MEDICAL ADVICE. When I asked him why he states that he was wasting his time here. He tells me that they wanted to do a heart catheterization but he said he would rather have that done at [place]. The patient has not yet followed up. He is hoping to make a follow-up appointment sometime in the upcoming year. He states that unfortunately he did not make it to that appointment and needed to come here today. Physical Examination: Afebrile vital signs are stable Gen: Well-nourished well-developed Head: Normocephalic atraumatic Eyes: Perrl EOMI ENT: TMs clear no rhinorrhea moist mucous membranes Neck: Supple no lymphadenopathy no JVD nontender CVS: Regular rate rhythm no murmurs normal S1-S2 Respiratory: No distress clear to auscultation bilaterally chest nontender Abdomen: Soft nontender nondistended normal bowel sounds no masses Back: Nontender Extremity: Nontender no edema Skin: Normal color no rash Neuro: alert orientated 3 CN II-XII intact normal strength sensation reflexes gait cerebellar Test Results: EKG shows atrial fibrillation with a left bundle branch block at a rate of 69. White count 6.2 hemoglobin 9. Creatinine off of its baseline 2.21 today. Glucose 477. INR 2.7. Troponin less than 0.015. Chest x-ray showed no acute findings. Emergency Department Course and Treatment: Patient received nitroglycerin and his pain resolved. He also received aspirin Lovenox IV fluids and insulin. I spoke with the patient and he would like to be transferred to [facility]. I have contacted [facility]'s transfer line at 0455 hours. Impression: 1. Unstable angina 2. Uncontrolled diabetes This note was generated with Wedivite dictation software. It may contain incorrect words, [...] your Primary Care Provider. Call [facility] ([phone]) or report to the closest Emergency Room. Call 911 if necessary. 02/18/18 0703 <Electronically signed by Jose J Lawrence DO> Date Jose J Lawrence DO Cosigner Signature (If Indicated): Date CC: Kyle Silva MD EMERGENCY DEPARTMENT Observed: 02/15/2018 Status: F Source: [facility] SUMMARY 11:52 PM [facility] REPOSITORY [facility] Medical Records Department [address] [place] [address] Emergency Department Summary 02/15/182022 MR#: [id number] Acct: [id number] Name: EDMUNDO ALEJANDRA Rep #: [id number] : 1940 77 From: Emma Salazar MD PCP: Kyle Silva MD, Chi Status: DEP ER - ER Visit Summary Date of Service: 02/15/18 Chief Complaint: Cardiac arrest History of Present Illness: The patient is a 77 M who reportedly had a heart cath at [facility] yesterday. 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 states that he does want to lay on the sofa today. He did seem sweaty and short of breath. He did not want to come to the emergency room. Patient's went downstairs to do laundry when she came back upstairs found him unresponsive on the sofa. EMS was called and initiated CPR on arrival. We advised the patient was in asystole with rhythm of PEA just prior to arrival to the emergency room. He had received 4 doses of epinephrine and 2 of bicarb with EMS. Physical Examination: Head and neck examination reveals no sign of trauma. Pupils are fixed with no scleral reflex. He has an ideal supraglottic airway in place. Pulses noted with CPR only. Lung sounds are present bilaterally with bagging. Abdomen is soft with no sign of trauma. Test Results: [] Emergency Department Course and Treatment: CPR was continued. Multiple rounds of ACLS were initiated with 4 additional doses of epinephrine. On final pulse check PEA rhythm was noted with no carotid or femoral pulse. No cardiac activity was noted on bedside ultrasound. Time of was called at 18:24. Family has been updated. Treatment Plan: [] Disposition: Impression: Cardiac arrest This note was generated with Wedivite dictation software. It may contain incorrect words, spelling, and punctuation that were not noted in review of the chart prior to signing ED Disposition - Plan for ED Patient: Chief Complaint: CPR Referrals: Kyle Silva Chi, MD [Primary Care Provider] - What to do if you have Problems For any increased pain, shortness of breath, bleeding, nausea or vomiting, chest pain, or any unexpected problems, contact your Primary Care Provider. Call [employer] [facility] ([phone]) or report to the closest Emergency Room. Call 911 if necessary. 02/15/18 1072 <Electronically signed by Emma Salazar MD> Date Emma Salazar MD Cosigner Signature (If Indicated): Date CC: Kyle Silva MD 12 LEAD ELECTROCARDIOGRAM Observed: 02/15/2018 Status: F Source: [facility] 1:31 PM [facility] REPOSITORY [facility] Cardiovascular Services [address] [place] [id number] 12 Lead EKG 02/12/18 0335 MR#: [id number] Acct: [id number] Name: NYEDMUNDO Raghavendra Rep #: [id number] : 1940 77 From: Tong Davis MD Attending Dr: Status: DEP ER Ordering Dr: Jose J Lawrence DO Date: 02/12/18 Location: ED Sex: M C Admitted: Test Reason : CP Blood Pressure : / mmHG Vent. Rate : 069 BPM Atrial Rate : 063 BPM P-R Int : 000 ms QRS Dur : 152 ms QT Int : 478 ms P-R-T Axes : 000 -06 197 degrees QTc Int : 512 ms Atrial fibrillation Left bundle branch block Abnormal ECG Confirmed by SUSAN NOWAK, TONG ([id number]), development editor MISAEL HOPE ([id number]) on 02/15/2018 1:30:41 PM Referred By: RACHEL Confirmed By:TONG DAVIS MD 02/15/18 1330 Date Tong Davis MD CC: Jose J Lawrence DO; Kyle Silva MD Signed CBC Collected: 02/14/2018 Status: F Source: [facility] 11:11 AM [facility] REPOSITORY TYPE CODE TESTS RESULT OUT OF REFERENCE UNITS RANGE LAB WBC(LOINC) 4.50-10.80 10 3/mcL WBC 7.80 LAB RBCCT(LOINC 4.50-6.00 10 6/mcL ) Low RBC 4.29 LAB HGB(LOINC) 13.0-17.5 G/dL Hgb 13.1 LAB HCT(LOINC) 40.0-52.0 % Low Hct 39.2 LAB MCV(LOINC) 81.0-100.0 fL MCV 91.4 LAB MCH(LOINC) 27.0-33.0 pg MCH 30.5 LAB MCHC(LOINC) 32.0-36.0 G/dL MCHC 33.3 LAB RDW(LOINC) 11.5-15.5 % RDW 15.0 LAB PLT(LOINC) 150-450 10 3/mcL Platelet 216 LAB MPV(LOINC) 6.4-10.5 fL MPV 9.1 Performed By: #### CBC, ADIFF, ANEU, APTT, PRO #### [place] [address] .AUTO DIFF Collected: 02/14/2018 Status: F Source: [facility] 11:11 AM [facility] REPOSITORY TYPE CODE TESTS RESULT OUT OF REFERENCE UNITS RANGE LAB STAR(LOINC) 50.0-75.0 % Neutrophil % 70.3 LAB LYM(LOINC) 20.0-40.0 % Low Lymphocyte % 15.6 LAB MON(LOINC) 2.0-13.0 % Monocyte % 11.6 LAB EO(LOINC) 0.0-6.0 % Eosinophil % 1.9 LAB BAS(LOINC) 0.0-2.5 % Basophil % 0.6 LAB ABLYM(LOIN 0.90-4.32 10 3/mcL C) Lymphocyte, 1.20 Absolute LAB SUZIE(LOINC 0.09-1.40 10 3/mcL ) Monocyte, 0.90 Absolute LAB AEOS(LOINC 0.00-0.65 10 3/mcL ) Eosinophil, 0.10 Absolute LAB ABAS(LOINC 0.00-0.27 10 3/mcL ) Basophil, 0.00 Absolute Performed By: #### CBC, ADIFF, ANEU, APTT, PRO #### [address] [address] .NEUABS Collected: 02/14/2018 Status: F Source: [facility] 11:11 AM [facility] REPOSITORY TYPE CODE TESTS RESULT OUT OF REFERENCE UNITS RANGE LAB ANEU(LOINC) 2.25-8.10 10 3/mcL Neutrophil, 5.50 Absolute Performed By: #### CBC, ADIFF, ANEU, APTT, PRO #### [place] [address] APTT Collected: 02/14/2018 Status: F Source: [facility] 11:11 AM [facility] REPOSITORY TYPE CODE TESTS RESULT OUT OF REFERENCE UNITS RANGE LAB PDOSE(LOIN C) Heparin dose Coumadin PO (APTT) LAB APTT0(LOIN 25.0-35.0 seconds C) APTT 30.6 Result Comment: For Heparin anticoagulation therapy, the recommended therapeutic range is: 54-77 seconds (APTT Correlation with Anti-Xa therapeutic range of 0.3-0.7 units/ml). PLEASE REFERENCE THE PHARMACY PROTOCOL FOR DOSING. Performed By: #### CBC, ADIFF, ANEU, APTT, PRO #### [address] [address] PRO Collected: 02/14/2018 Status: F Source: [facility] 11:11 AM [facility] REPOSITORY TYPE CODE TESTS RESULT OUT OF REFERENCE UNITS RANGE LAB PT(LOINC) 9.0-14.6 seconds High Protime 14.8 Result Comment: Effective 09/10/07, Protime results may be affected by some antibiotics (i.e. Ciprofloxacin, Azithromycin, Bactrim) which may potentiate the action of oral anticoagulants, with further increases in Protime/INR. LAB INR(LOINC) ratio PT International Ratio 1.3 Result Comment: The [place] [employer] (CHEST, 1991, 102:312S-25S) recommended therapeutic range for oral anticoagulant therapy is: LOW RISK: Prophylaxis of venous thrombosis INR: 2.0-3.0 Treatment of pulmonary embolism 2.0-3.0 Prevention of systemic embolism 2.0-3.0 HIGH RISK: Mechanical prosthetic valves 2.5-3.5 Performed By: #### CBC, ADIFF, ANEU, APTT, PRO #### [place] [address] MG Collected: 02/14/2018 Status: F Source: [facility] 6:48 AM [facility]POSIT[facility] TYPE CODE TESTS RESULT OUT OF REFERENCE UNITS RANGE LAB MG(LOINC) 1.6-2.4 mg/dL Magnesium Lvl 2.2 Performed By: #### MG, BMP, GFR, CBC, ADIFF, ANEU, TSH, FT4, FT3 #### [place] [address] BMP Collected: 02/14/2018 Status: F Source: [facility] 6:48 AM [facility] TYPE CODE TESTS RESULT OUT OF REFERENCE UNITS RANGE LAB GLU(LOINC) 82-115 mg/dL Low Glucose Level 66 LAB NA(LOINC) 136-145 mEq/L Sodium Level 141 LAB K(LOINC) 3.5-5.0 mEq/L Potassium Level 3.5 LAB CL(LOINC) 98-110 mEq/L Chloride 105 LAB CO2(LOINC) 22-32 mEq/L CO2 30 LAB EBAL(LOINC 4.0-15.0 mEq/L ) Electrolyte Balance 6.0 LAB BUN(LOINC) 8.0-22.0 mg/dL BUN 18.0 LAB CRE(LOINC) 0.60-1.40 mg/dL Creatinine Lvl (s) 1.40 LAB BC(LOINC) 10.0-22.0 ratio BUN/Creatinine 12.9 Ratio LAB CA(LOINC) 8.4-10.1 mg/dL Low Calcium Lvl 8.3 Performed By: #### MG, BMP, GFR, CBC, ADIFF, ANEU, TSH, FT4, FT3 #### [address] [address] .GFR Collected: 02/14/2018 Status: F Source: [facility] 6:48 AM [facility] REPOSIT[facility] TYPE CODE TESTS RESULT OUT OF REFERENCE UNITS RANGE LAB GFRAA(LOINC ml/min/1.73 ) sqm GFR 60 [place] Result Comment: GFR Population mean for , [...] square meters LAB GFRNO(LOINC) ml/min/1.73sqm GFR Non- 49 Result Comment: GFR Population mean for , [...] 15 mL/min/1.73 square meters Performed By: #### MG, BMP, GFR, CBC, ADIFF, ANEU, TSH, FT4, FT3 #### [address] [address] CBC Collected: 02/14/2018 Status: F Source: [facility] 6:48 AM [facility] REPOSITORY TYPE CODE TESTS RESULT OUT OF REFERENCE UNITS RANGE LAB WBC(LOINC) 4.50-10.80 10 3/mcL WBC 6.00 LAB RBCCT(LOINC 4.50-6.00 10 6/mcL ) Low RBC 4.05 LAB HGB(LOINC) 13.0-17.5 G/dL Low Hgb 12.3 LAB HCT(LOINC) 40.0-52.0 % Low Hct 36.7 LAB MCV(LOINC) 81.0-100.0 fL MCV 90.7 LAB MCH(LOINC) 27.0-33.0 pg MCH 30.4 LAB MCHC(LOINC) 32.0-36.0 G/dL MCHC 33.5 LAB RDW(LOINC) 11.5-15.5 % RDW 14.7 LAB PLT(LOINC) 150-450 10 3/mcL Platelet 213 LAB MPV(LOINC) 6.4-10.5 fL MPV 8.9 Performed By: #### MG, BMP, GFR, CBC, ADIFF, ANEU, TSH, FT4, FT3 #### [address] [address] .AUTO DIFF Collected: 02/14/2018 Status: F Source: [facility] 6:48 AM [facility] REPOSITORY TYPE CODE TESTS RESULT OUT OF REFERENCE UNITS RANGE LAB STAR(LOINC) 50.0-75.0 % Neutrophil % 52.1 LAB LYM(LOINC) 20.0-40.0 % Lymphocyte % 26.0 LAB MON(LOINC) 2.0-13.0 % Monocyte High % 17.2 LAB EO(LOINC) 0.0-6.0 % Eosinophil % 3.8 LAB BAS(LOINC) 0.0-2.5 % Basophil % 0.9 LAB ABLYM(LOIN 0.90-4.32 10 3/mcL C) Lymphocyte, 1.60 Absolute LAB SUZIE(LOINC 0.09-1.40 10 3/mcL ) Monocyte, 1.00 Absolute LAB AEOS(LOINC 0.00-0.65 10 3/mcL ) Eosinophil, 0.20 Absolute LAB ABAS(LOINC 0.00-0.27 10 3/mcL ) Basophil, 0.10 Absolute Performed By: #### MG, BMP, GFR, CBC, ADIFF, ANEU, TSH, FT4, FT3 #### [address] [address] .NEUABS Collected: 02/14/2018 Status: F Source: [facility] 6:48 AM [facility] REPOSITORY TYPE CODE TESTS RESULT OUT OF REFERENCE UNITS RANGE LAB ANEU(LOINC) 2.25-8.10 10 3/mcL Neutrophil, 3.10 Absolute Performed By: #### MG, BMP, GFR, CBC, ADIFF, ANEU, TSH, FT4, FT3 #### [address] [address] TSH Collected: 02/14/2018 Status: F Source: [facility] 6:48 AM [facility] REPOSITORY TYPE CODE TESTS RESULT OUT OF RANGE REFERENCE UNITS LAB TSH(LOINC) 0.360-3.740 mcIU/mL High TSH 5.500 Result Comment: Please note as of 09/09/16 new pediatric reference intervals were added for this test. Performed By: #### MG, BMP, GFR, CBC, ADIFF, ANEU, TSH, FT4, FT3 #### [address] [address] FT4 Collected: 02/14/2018 Status: F Source: [facility] 6:48 AM [facility] REPOSITORY TYPE CODE TESTS RESULT OUT OF RANGE REFERENCE UNITS LAB FT4(LOINC) 0.60-1.70 ng/dL Free T4 1.28 Result Comment: Please note as of 09/09/16 new pediatric reference intervals were added for this test. Performed By: #### MG, BMP, GFR, CBC, ADIFF, ANEU, TSH, FT4, FT3 #### [address] [address] FT3 Collected: 02/14/2018 Status: F Source: [facility] 6:48 AM [facility] REPOSITORY TYPE CODE TESTS RESULT OUT OF RANGE REFERENCE UNITS LAB FT3(LOINC) 2.30-4.20 pg/mL Free T3 2.32 Result Comment: Please note as of 09/09/16 new pediatric reference intervals were added for this test. Performed By: #### MG, BMP, GFR, CBC, ADIFF, ANEU, TSH, FT4, FT3 #### [address] [address] PRO Collected: 02/14/2018 Status: F Source: [facility] 6:48 AM [facility] REPOSITORY Order Comment: ordered secondary to warfarin order TYPE CODE TESTS RESULT OUT OF REFERENCE UNITS RANGE LAB PT(LOINC) 9.0-14.6 seconds High Protime 16.2 Result Comment: Effective 09/10/07, Protime results may be affected by some antibiotics (i.e. Ciprofloxacin, Azithromycin, Bactrim) which may potentiate the action of oral anticoagulants, with further increases in Protime/INR. LAB INR(LOINC) ratio PT International Ratio 1.4 Result Comment: The [place] [employer] (CHEST, 1992, 102:312S-25S) recommended therapeutic range for oral anticoagulant therapy is: LOW RISK: Prophylaxis of venous thrombosis INR: 2.0-3.0 Treatment of pulmonary embolism 2.0-3.0 Prevention of systemic embolism 2.0-3.0 HIGH RISK: Mechanical prosthetic valves 2.5-3.5 Performed By: #### PRO #### [address] [address] BMP Collected: 02/13/2018 Status: F Source: [facility] 6:29 AM [facility] REPOSITORY TYPE CODE TESTS RESULT OUT OF REFERENCE UNITS RANGE LAB GLU(LOINC) 82-115 mg/dL Glucose High Level 123 LAB NA(LOINC) 136-145 mEq/L Sodium Level 141 LAB K(LOINC) 3.5-5.0 mEq/L Potassium Level 3.7 LAB CL(LOINC) 98-110 mEq/L Chloride 105 LAB CO2(LOINC) 22-32 mEq/L CO2 31 LAB EBAL(LOINC 4.0-15.0 mEq/L ) Electrolyte Balance 5.0 LAB BUN(LOINC) 8.0-22.0 mg/dL BUN High 25.0 LAB CRE(LOINC) 0.60-1.40 mg/dL Creatinine High Lvl (s) 1.55 LAB BC(LOINC) 10.0-22.0 ratio BUN/Creatinine 16.1 Ratio LAB CA(LOINC) 8.4-10.1 mg/dL Calcium Lvl 8.5 Performed By: #### BMP, GFR, CBC, ADIFF, ANEU, PRO #### [address] [address] .GFR Collected: 02/13/2018 Status: F Source: [facility] 6:29 AM [facility] REPOSITORY TYPE CODE TESTS RESULT OUT OF REFERENCE UNITS RANGE LAB GFRAA(LOINC ml/min/1.73 ) sqm GFR 53 [place] Result Comment: GFR Population mean for , [...] square meters LAB GFRNO(LOINC) ml/min/1.73sqm GFR Non- 44 Result Comment: GFR Population mean for , [...] 15 mL/min/1.73 square meters Performed By: #### BMP, GFR, CBC, ADIFF, ANEU, PRO #### [place] [address] CBC Collected: 02/13/2018 Status: F Source: [facility] 6:29 AM [facility] REPOSITORY TYPE CODE TESTS RESULT OUT OF REFERENCE UNITS RANGE LAB WBC(LOINC) 4.50-10.80 10 3/mcL WBC 4.80 LAB RBCCT(LOINC 4.50-6.00 10 6/mcL ) Low RBC 4.03 LAB HGB(LOINC) 13.0-17.5 G/dL Low Hgb 12.4 LAB HCT(LOINC) 40.0-52.0 % Low Hct 36.3 LAB MCV(LOINC) 81.0-100.0 fL MCV 90.1 LAB MCH(LOINC) 27.0-33.0 pg MCH 30.7 LAB MCHC(LOINC) 32.0-36.0 G/dL MCHC 34.0 LAB RDW(LOINC) 11.5-15.5 % RDW 14.2 LAB PLT(LOINC) 150-450 10 3/mcL Platelet 199 LAB MPV(LOINC) 6.4-10.5 fL MPV 9.1 Performed By: #### BMP, GFR, CBC, ADIFF, ANEU, PRO #### [address] [address] .AUTO DIFF Collected: 02/13/2018 Status: F Source: [facility] 6:29 AM [facility] REPOSITORY TYPE CODE TESTS RESULT OUT OF REFERENCE UNITS RANGE LAB STAR(LOINC) 50.0-75.0 % Low Neutrophil % 47.4 LAB LYM(LOINC) 20.0-40.0 % Lymphocyte % 32.7 LAB MON(LOINC) 2.0-13.0 % Monocyte High % 14.9 LAB EO(LOINC) 0.0-6.0 % Eosinophil % 4.1 LAB BAS(LOINC) 0.0-2.5 % Basophil % 0.9 LAB ABLYM(LOIN 0.90-4.32 10 3/mcL C) Lymphocyte, 1.60 Absolute LAB SUZIE(LOINC 0.09-1.40 10 3/mcL ) Monocyte, 0.70 Absolute LAB AEOS(LOINC 0.00-0.65 10 3/mcL ) Eosinophil, 0.20 Absolute LAB ABAS(LOINC 0.00-0.27 10 3/mcL ) Basophil, 0.00 Absolute Performed By: #### BMP, GFR, CBC, ADIFF, ANEU, PRO #### [address] [address] .NEUABS Collected: 02/13/2018 Status: F Source: [facility] 6:29 AM [facility] REPOSITORY TYPE CODE TESTS RESULT OUT OF REFERENCE UNITS RANGE LAB ANEU(LOINC) 2.25-8.10 10 3/mcL Neutrophil, 2.30 Absolute Performed By: #### BMP, GFR, CBC, ADIFF, ANEU, PRO #### [address] [address] PRO Collected: 02/13/2018 Status: F Source: [facility] 6:29 AM [facility] REPOSITORY TYPE CODE TESTS RESULT OUT OF REFERENCE UNITS RANGE LAB PT(LOINC) 9.0-14.6 seconds High Protime 32.6 Result Comment: Effective 09/10/07, Protime results may be affected by some antibiotics (i.e. Ciprofloxacin, Azithromycin, Bactrim) which may potentiate the action of oral anticoagulants, with further increases in Protime/INR. LAB INR(LOINC) ratio PT International Ratio 2.8 Result Comment: [employer] [place] [employer] (CHEST, 1992, 102:312S-25S) recommended therapeutic range for oral anticoagulant therapy is: LOW RISK: Prophylaxis of venous thrombosis INR: 2.0-3.0 Treatment of pulmonary embolism 2.0-3.0 Prevention of systemic embolism 2.0-3.0 HIGH RISK: Mechanical prosthetic valves 2.5-3.5 Performed By: #### BMP, GFR, CBC, ADIFF, ANEU, PRO #### [address] [address] TROPI Collected: 02/12/2018 Status: F Source: [facility] 2:49 PM [facility] REPOSITORY TYPE CODE TESTS RESULT OUT OF [...] ECG changes may help assess possibility of OH. *Other non-acute coronary syndrome conditions such as CHF, myocarditis, pulmonary emboli, sepsis and cardiac surgery could result in myocardial damage and increased troponin levels. Performed By: #### TROPI #### [address] [address] TROPI Collected: 02/12/2018 Status: F Source: [employer] [employer] 12:34 PM [facility] REPOSITORY TYPE CODE TESTS RESULT OUT OF [...] ECG changes may help assess possibility of OH. *Other non-acute coronary syndrome conditions such as CHF, myocarditis, pulmonary emboli, sepsis and cardiac surgery could result in myocardial damage and increased troponin levels. Performed By: #### TROPI #### [address] [address] CAION Collected: 02/12/2018 Status: F Source: [facility] 9:18 AM [facility] REPOSITORY TYPE CODE TESTS RESULT OUT OF REFERENCE UNITS RANGE LAB CAION(LOINC 1.12-1.32 mmol/L ) Low Calcium 1.07 Ionized Performed By: #### CAION, CBC, ADIFF, ANEU, MG, PHOS, CMP, PBNP, GFR, TROPI, TSH, APTT, PRO, LIPID, A1C #### [address] [address] CBC Collected: 02/12/2018 Status: F Source: [facility] 9:18 AM [facility] REPOSITORY TYPE CODE TESTS RESULT OUT OF [...] 6.4-10.5 fL MPV 8.7 Performed By: #### CAION, CBC, ADIFF, ANEU, MG, PHOS, CMP, PBNP, GFR, TROPI, TSH, APTT, PRO, LIPID, A1C #### [address] [address] .AUTO DIFF Collected: 02/12/2018 Status: F Source: [facility] 9:18 AM [facility] REPOSITORY TYPE CODE TESTS RESULT OUT OF [...] ) Basophil, 0.10 Absolute Performed By: #### ZHANNA, CBC, ADIFF, ANEU, MG, PHOS, CMP, PBNP, GFR, TROPI, TSH, APTT, PRO, LIPID, A1C #### [address] [address] .NEUABS Collected: 02/12/2018 Status: F Source: [facility] 9:18 [facility] REPOSITORY TYPE CODE TESTS RESULT OUT OF REFERENCE UNITS RANGE LAB ANEU(LOINC) 2.25-8.10 10 3/mcL Neutrophil, 4.40 Absolute Performed By: #### ZHANNA, CBC, ADIFF, ANEU, MG, PHOS, CMP, PBNP, GFR, TROPI, TSH, APTT, PRO, LIPID, A1C #### [address] [address] MG Collected: 02/12/2018 Status: F Source: [facility] 9:18 [facility] REPOSITORY TYPE CODE TESTS RESULT OUT OF REFERENCE UNITS RANGE LAB MG(LOINC) 1.6-2.4 mg/dL Magnesium Lvl 2.4 Performed By: #### ZHANNA, CBC, ADIFF, ANEU, MG, PHOS, CMP, PBNP, GFR, TROPI, TSH, APTT, PRO, LIPID, A1C #### [address] [address] PHOS Collected: 02/12/2018 Status: F Source: [facility] 9:18 AM [facility] REPOSITORY TYPE CODE TESTS RESULT OUT OF REFERENCE UNITS RANGE LAB PHOS(LOINC 2.5-4.5 mg/dL ) Low Phosphorus 2.0 Performed By: #### CAION, CBC, ADIFF, ANEU, MG, PHOS, CMP, PBNP, GFR, TROPI, TSH, APTT, PRO, LIPID, A1C #### [address] [address] CMP Collected: 02/12/2018 Status: F Source: [facility] 9:18 AM [facility] REPOSITORY TYPE CODE TESTS RESULT OUT OF [...] 12-55 U/L ALT/SGPT 24 Performed By: #### CAION, CBC, ADIFF, ANEU, MG, PHOS, CMP, PBNP, GFR, TROPI, TSH, APTT, PRO, LIPID, A1C #### [place] [id number] PBNP Collected: 02/12/2018 Status: F Source: [facility] 9:18 AM [facility] REPOSITORY TYPE CODE TESTS RESULT OUT OF REFERENCE UNITS RANGE LAB PBNP(LOINC) 0-1800 pg/mL High N-Terminal [address] proBNP Result Comment: NT-proBNP results of less than 300 pg/mL effectively rules out acute congestive heart failure with 99% negative predictive value. Performed By: #### CAION, CBC, ADIFF, ANEU, MG, PHOS, CMP, PBNP, GFR, TROPI, TSH, APTT, PRO, LIPID, A1C #### [address] [address] .GFR Collected: 02/12/2018 Status: F Source: [facility] 9:18 AM [facility] REPOSITORY TYPE CODE TESTS RESULT OUT OF REFERENCE UNITS RANGE LAB GFRAA(LOINC ml/min/1.73 ) sqm GFR 50 [place] Result Comment: GFR Population mean for , [...] 15 mL/min/1.73 square meters Performed By: #### CAION, CBC, ADIFF, ANEU, MG, PHOS, CMP, PBNP, GFR, TROPI, TSH, APTT, PRO, LIPID, A1C #### [address] [address] TROPI Collected: 02/12/2018 Status: F Source: [facility] 9:18 AM [facility] REPOSITORY TYPE CODE TESTS RESULT OUT OF [...] ECG changes may help assess possibility of OH. *Other non-acute coronary syndrome conditions such as CHF, myocarditis, pulmonary emboli, sepsis and cardiac surgery could result in myocardial damage and increased troponin levels. Performed By: #### ZHANNA, CBC, ADIFF, ANEU, MG, PHOS, CMP, PBNP, GFR, TROPI, TSH, APTT, PRO, LIPID, A1C #### [address] [address] TSH Collected: 02/12/2018 Status: F Source: [facility] 9:18 AM [facility] REPOSITORY TYPE CODE TESTS RESULT OUT OF RANGE REFERENCE UNITS LAB TSH(LOINC) 0.360-3.740 mcIU/mL High TSH 4.910 Result Comment: Please note as of 09/09/16 new pediatric reference intervals were added for this test. Performed By: #### CAION, CBC, ADIFF, ANEU, MG, PHOS, CMP, PBNP, GFR, TROPI, TSH, APTT, PRO, LIPID, A1C #### [address] [place], [place] [address] APTT Collected: 02/12/2018 Status: F Source: [facility] 9:18 AM [facility] REPOSITORY TYPE CODE TESTS RESULT OUT OF REFERENCE UNITS RANGE LAB PDOSE(LOIN C) Heparin dose Coumadin PO (APTT) LAB APTT0(LOIN 25.0-35.0 seconds C) High APTT 52.0 Result Comment: For Heparin anticoagulation therapy, the recommended therapeutic range is: 54-77 seconds (APTT Correlation with Anti-Xa therapeutic range of 0.3-0.7 units/ml). PLEASE REFERENCE THE PHARMACY PROTOCOL FOR DOSING. Performed By: #### CAION, CBC, ADIFF, ANEU, MG, PHOS, CMP, PBNP, GFR, TROPI, TSH, APTT, PRO, LIPID, A1C #### [address] [address] PRO Collected: 02/12/2018 Status: F Source: [facility] 9:18 AM [facility] REPOSITORY TYPE CODE TESTS RESULT OUT OF REFERENCE UNITS RANGE LAB PT(LOINC) 9.0-14.6 seconds High Protime 34.1 Result Comment: Effective 09/10/07, Protime results may be affected by some antibiotics (i.e. Ciprofloxacin, Azithromycin, Bactrim) which may potentiate the action of oral anticoagulants, with further increases in Protime/INR. LAB INR(LOINC) ratio PT International Ratio 2.9 Result Comment: [employer] [place] [employer] (CHEST, 1992, 102:312S-25S) recommended therapeutic range for oral anticoagulant therapy is: LOW RISK: Prophylaxis of venous thrombosis INR: 2.0-3.0 Treatment of pulmonary embolism 2.0-3.0 Prevention of systemic embolism 2.0-3.0 HIGH RISK: Mechanical prosthetic valves 2.5-3.5 Performed By: #### CAION, CBC, ADIFF, ANEU, MG, PHOS, CMP, PBNP, GFR, TROPI, TSH, APTT, PRO, LIPID, A1C #### [facility] [address] [place] [address] LIPID Collected: 02/12/2018 Status: F Source: [facility] 9:18 AM [facility] REPOSITORY TYPE CODE TESTS RESULT OUT OF [...] above Very high risk Performed By: #### ZHANNA, CBC, ADIFF, ANEU, MG, PHOS, CMP, PBNP, GFR, TROPI, TSH, APTT, PRO, LIPID, A1C #### [address] [address] A1C Collected: 02/12/2018 Status: F Source: [facility] 9:18 AM [facility] REPOSITORY TYPE CODE TESTS RESULT OUT OF RANGE REFERENCE UNITS LAB A1C(LOINC) 4.0-6.0 % High Hgb A1c 10.5 Performed By: #### ZHANNA, CBC, ADIFF, ANEU, MG, PHOS, CMP, PBNP, GFR, TROPI, TSH, APTT, PRO, LIPID, A1C #### [address] [address] BEDSIDE GLUCOSE Collected: 02/12/2018 Status: F Source: [place] 5:45 AM [facility] REPOSITORY TYPE CODE TESTS RESULT OUT OF REFERENCE UNITS RANGE LAB L501.080 70-110 mg/dL High alert BEDSIDE GLU 485 Result Comment: MANAGEMENT OF PATIENT CARE PER NURSING PROTOCOL Performed By: #### L501.080 #### [facility] Point of Care [address] [place] [address] CHEST 1 VIEW Observed: 02/12/2018 Status: F Source: [place] (PORTABLE) 3:48 AM [facility] REPOSITORY [facility] Imaging Services [address] [place] [address] Chest 1 View (Portable) MR#: [id number] Acct: [id number] Name: EDMUNDO ALEJANDRA Rep #: [id number] : 1940 M 77 From: Mic Almaguer PCP: Kyle Silva MD, Chi Status: PRE ER Study: Chest 1 View (Portable) Date of Exam: 02/12/18 Exam# [id number] Ordering Dr: Jose J Lawrence DO STUDY: [...] Jose J Lawrence DO; Kyle Silva MD Video Technician: Signed CBC W/DIFF, AUTOMATED Collected: 02/12/2018 Status: F Source: [place] 3:15 AM [facility] REPOSITORY TYPE CODE TESTS RESULT OUT OF [...] Performed By: #### L100.0100, L500.2500, L501.4010 #### [facility] [address] [place], [address] BASIC METABOLIC Collected: 02/12/2018 Status: F Source: [place] PROFILE (BMP) 3:15 AM [facility] REPOSITORY TYPE CODE TESTS RESULT OUT OF RANGE REFERENCE UNITS LAB L501.0100 74-106 mg/dL High alert GLU 477 Result Comment: Critical Result(s) Called at: 04:38:01 02/12/2018 by: Jose J Ramirez DO (ER). Glucose result greater than or equal [...] Performed By: #### L100.0100, L500.2500, L501.4010 #### [facility] [address] [place], [address] TROPONIN-I Collected: 02/12/2018 Status: F Source: [place] 3:15 AM [facility] REPOSITORY TYPE CODE TESTS RESULT OUT OF RANGE REFERENCE UNITS LAB L501.4010 <0.045 ng/mL Normal < 0.015 TROPONIN-I Result Comment: TROPONIN-I EXPECTED VALUES <0.045 Negative 0.045 - 0.590 Consistent with Cardiac Damage > OR = 0.600 Critical Value Not every elevated troponin is indicative of OH. These values should be used with clinical judgement in examining the patient's clinical picture for diagnosis. To establish a diagnosis of OH versus myocardial injury, there must be a demonstrated rise and/or fall in the troponin values, in addition to ischemic symptoms, EKG changes, new regional wall motion abnormality, and/or angiographical evidence. PLEASE NOTE: REFERENCE RANGES EDITED 17 Performed By: #### L100.0100, L500.2500, L501.4010 #### [facility] [address] [place], [address] PROTHROMBIN TIME W/INR Collected: 02/12/2018 Status: F Source: [place] 3:15 AM [facility] REPOSITORY TYPE CODE TESTS RESULT OUT OF RANGE REFERENCE UNITS LAB L300.4150 11.7-14.9 SECONDS High PROTIME 28.5 LAB L300.4200 Normal INR 2.7 Performed By: #### L300.3900 #### [facility] [address] [place], [address] BASIC METABOLIC Collected: 02/01/2018 Status: F Source: [place] PROFILE (BMP) 11:46 AM [facility] REPOSITORY TYPE CODE TESTS RESULT OUT OF [...] 6 Performed By: #### L500.2500, L501.9520 #### [facility] [address] [place], [address] THYROID STIM HORMONE Collected: 02/01/2018 Status: F Source: [place] (TSH) 11:46 AM [facility] REPOSITORY TYPE CODE TESTS RESULT OUT OF RANGE REFERENCE UNITS LAB L501.9520 0.358-3.74 uIU/mL High TSH 6.80 Performed By: #### L500.2500, L501.9520 #### [facility] [address] [place], [address] 12 LEAD ELECTROCARDIOGRAM Observed: 01/25/2018 Status: F Source: [place] 9:08 AM [facility] REPOSITORY [facility] Cardiovascular Services [address] [place] [address] 12 Lead EKG 01/10/18 0335 MR#: [id number] Acct: [id number] Name: EDMUNDO ALEJANDRA Rep #: [id number] : 1940 77 From: Tong Davis MD Attending Dr: Adam Victor DO Status: DIS ODALIS Ordering Dr: Ruel García MD Date: 01/10/18 Location: [facility] Sex: M C Admitted: 01/10/18 Test Reason [...] ECG Confirmed by SUSAN NOWAK, TONG ([id number]), development editor MISAEL HOPE ([id number]) on 01/11/2018 3:45:06 PM Referred By: DR GARCÍA Confirmed By:TONG DAVIS MD 01/11/18 1545 Date Tong Davis MD CC: Adam Victor DO; Ruel García MD; Kyle Silva MD Signed 12 LEAD ELECTROCARDIOGRAM Observed: 01/25/2018 Status: F Source: [place] 9:08 AM [facility] REPOSITORY [facility] Cardiovascular Services [address] [place] [address] 12 Lead EKG 01/10/18 0804 MR#: [id number] Acct: [id number] Name: EDMUNDO ALEJANDRA Rep #: [id number] : 1940 77 From: Tong Davis MD Attending Dr: Adam Victor DO Status: DIS ODALIS Ordering Dr: Brad Bermudez MD Date: 01/10/18 Location: [facility] Sex: M C Admitted: 01/10/18 Test Reason [...] UNCONFIRMED Confirmed by SUSAN NOWAK, TONG ([id number]), development editor MISAEL HOPE ([id number]) on 01/14/2018 1:48:23 PM Referred By: PRABHJOT Confirmed By:TONG DAVIS MD 01/14/18 1348 Date Tong Davis MD CC: Brad Bermudez MD; Adam Victor DO; Kyle Silva MD Signed CBC W/DIFF, AUTOMATED Collected: 01/24/2018 Status: F Source: [place] 11:46 AM [facility] REPOSITORY TYPE CODE TESTS RESULT OUT OF [...] Lymph 2.21 Performed By: #### L100.0100 #### [facility] [address] [place], [address] COMPREHENSIVE METABOLIC Collected: 01/24/2018 Status: F Source: [facility] 11:46 AM [facility] REPOSITORY TYPE CODE TESTS RESULT OUT OF [...] 7 Performed By: #### L500.4050, L501.9520 #### [facility] [address] [place], [place], [address] THYROID STIM HORMONE Collected: 01/24/2018 Status: F Source: [place] (TSH) 11:46 AM [facility] REPOSITORY TYPE CODE TESTS RESULT OUT OF RANGE REFERENCE UNITS LAB L501.9520 0.358-3.74 uIU/mL High TSH 5.86 Performed By: #### L500.4050, L501.9520 #### [facility] [address] [place], [place], [address] VITAMIN D,25 HYDROXY Collected: 01/24/2018 Status: F Source: [place] 11:46 AM [facility] REPOSITORY TYPE CODE TESTS RESULT OUT OF RANGE REFERENCE UNITS LAB L506.1000 29.95-100.01 ng/mL Normal Vitamin D 49.4 25-OH Result Comment: Vitamin D 25(OH) Status Range Deficiency <20 ng/mL (50nmol/L) Insuffciency 20 - 30 ng/mL (50 - 75 nmol/L) Sufficiency 30 - 100 ng/mL (75 - 250 nmol/L) Toxicity >100 ng/mL (>250 nmol/L) Performed By: #### L506.1000 #### [facility] [address] [place], [place], [address] BASIC METABOLIC Collected: 01/11/2018 Status: F Source: [place] (BMP) 12:59 PM [facility] REPOSITORY TYPE CODE TESTS RESULT OUT OF [...] 6 GAP Performed By: #### L500.2500 #### [facility] [address] [place], [place], [address] PROTHROMBIN TIME W/INR Collected: 01/11/2018 Status: F Source: [place] 12:59 PM [facility] REPOSITORY TYPE CODE TESTS RESULT OUT OF RANGE REFERENCE UNITS LAB L300.4150 11.7-14.9 SECONDS High PROTIME 23.2 LAB L300.4200 Normal INR 2.1 Performed By: #### L300.3900 #### [facility] [address] [place], [address] DISCHARGE SUMMARY Observed: 01/11/2018 Status: F Source: [place] 10:00 AM [facility] REPOSITORY [facility] Medical Records Department [address] [place] [address] Discharge Summary 01/11/18 0951 MR#: [id number] Acct: [id number] Name: EDMUNDO ALEJANDRA Rep #: [id number] : 1940 77 From: Adam Victor DO PCP: Ricardo NOWAK,Kyle Chi Status: DIS ODALIS Y Location: [place] [address] Discharge Date and Diagnosis Date of Admission: [...] [place] at discharge?: Yes Done w/ Acute OH measure.: Yes Code Visit OBSV E AND M: [id number] Observ/hosp same date L3 11/16/18 1000 <Electronically signed by Adam Victor DO> Date Adam Victor DO Cosigner Signature (if applicable): Date CC: Adam Victor DO; Kyle Silva MD Signed DISCHARGE INSTRUCTION Observed: 01/10/2018 Status: F Source: [place] 1:35 PM [facility] REPOSITORY [facility] Medical Records Department [address] [place] [address] [place] [address] Instructions for Home/Discharge Instructions 01/10/18 1326 MR#: [id number] Acct: [id number] Name: EDMUNDO ALEJANDAR Rep #: [id number] : 1940 77 From: Adam Victor DO [...] if applicable. 01/10/18 1335 <Electronically signed by Adam Victor DO> Date Adam Victor DO CC: Kyle Silva MD TROPONIN-I Collected: 01/10/2018 Status: F Source: [place] 12:20 PM [facility] REPOSITORY TYPE CODE TESTS RESULT OUT OF RANGE REFERENCE UNITS LAB L501.4010 <0.045 ng/mL High alert 5.200 TROPONIN-I Result Comment: Critical Result(s) Called at: 12:50:57 01/10/2018 by: Ann Perez TROPONIN-I EXPECTED VALUES <0.045 Negative 0.045 - 0.590 Consistent with Cardiac Damage > OR = 0.600 Critical Value Not every elevated troponin is indicative of OH. These values should be used with clinical judgement in examining the patient's clinical picture for diagnosis. To establish a diagnosis of OH versus myocardial injury, there must be a demonstrated rise and/or fall in the troponin values, in addition to ischemic symptoms, EKG changes, new regional wall motion abnormality, and/or angiographical evidence. PLEASE NOTE: REFERENCE RANGES EDITED 17 Performed By: #### L501.4010 #### [facility] [address] [place], [address] HISTORY AND PHYSICAL Observed: 01/10/2018 Status: F Source: [place] EXAM 8:22 AM [facility] REPOSITORY [facility] Medical Records Department [address] [place] [address] History and Physical 01/10/18 0727 MR#: [id number] Acct: [id number] Name: EDMUNDO ALEJANDRA Rep #: [id number] : 1940 77 From: Brad Bermudez MD PCP: Ricardo NOWAK,Kyle Mandujano Status: ADM ODALIS Y Location: [place] [address] Problem List (1) Chest pain Status: Acute [...] Chest pain Patient had acute non-ST elevation OH on 12/08/2017. Pharmacological myocardial perfusion stress test [...] fib. Code Visit OBSV E AND M: 79692 Initial observation care L3 01/10/18821 <Electronically signed by Brad Bermudez MD> Date Brad Bermudez MD Cosigner Signature: Date (if applicable) CC: Brad Bermudez MD; Kyle Silva MD Signed BEDSIDE GLUCOSE Collected: 01/10/2018 Status: F Source: [place] 8:22 AM [facility] REPOSITORY TYPE CODE TESTS RESULT OUT OF REFERENCE UNITS RANGE LAB L501.080 70-110 mg/dL High BEDSIDE GLU 238 Result Comment: MANAGEMENT OF PATIENT CARE PER NURSING PROTOCOL Performed By: #### L501.080 #### [facility] Point of Care [address] [place] [address] EMERGENCY DEPARTMENT Observed: 01/10/2018 Status: F Source: [place] SUMMARY 4:59 AM [facility] REPOSITORY [facility] Medical Records Department [address] [facility] [place] [address] Emergency Department Summary 01/10/18 0357 MR#: [id number] Acct: [id number] Name: EDMUNDO ALEJANDRA Rep #: [id number] : 1940 77 From: Ruel García MD PCP: Kyle Silva MD, Chi Status: REG ER - ER Visit Summary [...] may be from his prior non-ST elevation OH, regardless he will be observed in the hospital. Disposition: Admit to the hospital in stable condition Impression: Acute coronary syndrome This note was generated with Wed[employer] dictation software. It may contain incorrect words, [...] problems, contact your Primary Care Provider. Call [employer] [facility] ([phone]) or report to the closest Emergency Room. Call 911 if necessary. 01/10/18 0459 <Electronically signed by Ruel García MD> Date Ruel García MD Cosigner Signature (If Indicated): Date CC: Kyle Silva MD CHEST 1 VIEW Observed: 01/10/2018 Status: F Source: [place] (PORTABLE) 3:53 AM [facility] REPOSITORY [facility] Imaging Services [address] [place] [address] Chest 1 View (Portable) MR#: [id number] Acct: [id number] Name: EDMUNDO ALEJANDRA Rep #: [id number] : 1940 M 77 From: Geovany Milner MD PCP: Kyle Silva MD, Chi Status: REG ER Study: Chest 1 View (Portable) Date of Exam: 01/10/18 Exam# [id number] Ordering Dr: Ruel García MD HISTORY: C/O [...] CC: Ruel García MD; Kyle Silva MD Video Technician: Signed CBC W/DIFF, AUTOMATED Collected: 01/10/2018 Status: F Source: [place] 3:45 AM [facility] REPOSITORY TYPE CODE TESTS RESULT OUT OF [...] Lymph 2.28 Performed By: #### L100.0100 #### [facility] [address] [place], [place], [address] PROTHROMBIN TIME W/INR Collected: 01/10/2018 Status: F Source: [place] 3:45 AM [facility] REPOSITORY TYPE CODE TESTS RESULT OUT OF RANGE REFERENCE UNITS LAB L300.4150 11.7-14.9 SECONDS High PROTIME 18.8 LAB L300.4200 Normal INR 1.6 Performed By: #### L300.3900 #### [facility] [address] [place], [address] BASIC METABOLIC Collected: 01/10/2018 Status: F Source: [place] PRO[facility] (BMP) 3:45 AM [facility] [facility] REPOSITORY TYPE CODE TESTS RESULT OUT OF [...] 11 Performed By: #### L500.2500, L501.4010 #### [facility] [address] [place], [address] TROPONIN-I Collected: 01/10/2018 Status: F Source: [place] 3:45 AM [facility] REPOSITORY TYPE CODE TESTS RESULT OUT OF RANGE REFERENCE UNITS LAB L501.4010 <0.045 ng/mL High 0.222 TROPONIN-I Result Comment: TROPONIN-I EXPECTED VALUES <0.045 Negative 0.045 - 0.590 Consistent with Cardiac Damage > OR = 0.600 Critical Value Not every elevated troponin is indicative of [place]. These values should be used with clinical judgement in examining the patient's clinical picture for diagnosis. To establish a diagnosis of OH versus myocardial injury, there must be a demonstrated rise and/or fall in the troponin values, in addition to ischemic symptoms, EKG changes, new regional wall motion abnormality, and/or angiographical evidence. PLEASE NOTE: REFERENCE RANGES EDITED 17 Performed By: #### L500.2500, L501.4010 #### [facility] [address] [facility] [place] [place], [address] CBC W/DIFF, AUTOMATED Collected: 01/08/2018 Status: F Source: [place] 10:51 AM [facility] REPOSITORY TYPE CODE TESTS RESULT OUT OF [...] Lymph 2.31 Performed By: #### L100.0100 #### [facility] [address] [place], [address] BASIC METABOLIC Collected: 01/08/2018 Status: F Source: [place] PROFILE ([facility]) 10:51 AM [facility] REPOSITORY TYPE CODE TESTS RESULT OUT OF [...] GAP 9 Performed By: #### L500.2500 #### [facility] [address] [place], [address] CBC W/DIFF, AUTOMATED Collected: 12/27/2017 Status: F Source: [place] 12:50 PM [facility] REPOSITORY TYPE CODE TESTS RESULT OUT OF [...] Lymph 2.02 Performed By: #### L100.0100 #### [facility] [address] [place] [place], [address] BASIC METABOLIC Collected: 12/27/2017 Status: F Source: [place] PROFILE ([facility]) 12:50 PM [facility] REPOSITORY TYPE CODE TESTS RESULT OUT OF [...] 8 Performed By: #### L500.2500, L501.9520 #### [facility] [address] [place], [address] THYROID STIM HORMONE Collected: 12/27/2017 Status: F Source: [place] ([facility]) 12:50 PM [facility] REPOSITORY TYPE CODE TESTS RESULT OUT OF RANGE REFERENCE UNITS LAB L501.9520 0.358-3.74 uIU/mL Normal TSH 3.20 Performed By: #### L500.2500, L501.9520 #### [facility] [address] [place], [address] 12 LEAD ELECTROCARDIOGRAM Observed: 12/13/2017 Status: F Source: [place] 11:41 AM [facility] REPOSITORY [facility] Cardiovascular Services [address] [facility] [place] [place] [address] 12 Lead EKG 12/08/17 0547 MR#: [id number] Acct: [id number] Name: EDMUNDO ALEJANDRA Rep #: [id number] : 1940 77 From: Ruel Brink MD Attending Dr: Birdie Iyer MD Status: DIS IN Ordering Dr: Phylicia Rowan MD Date: 12/08/17 Location: [facility] Sex: M C Admitted: 12/08/17 Test Reason [...] Abnormal ECG Confirmed by CUBA NOWAK, RUEL ([id number]), development editor MISAEL HOPE ([id number]) on 12/13/2017 11:41:02 AM Referred By: MANI Confirmed By:RUEL BRINK MD 12/13/17 1141 Date Ruel Brink MD CC: Birdie Iyer MD; Phylicia Rowan MD; Kyle Silva MD Signed 12 LEAD ELECTROCARDIOGRAM Observed: 12/13/2017 Status: F Source: [place] 11:37 AM [facility] REPOSITORY [facility] Cardiovascular Services [address] [place] [address] 12 Lead EKG 12/10/17 0528 MR#: [id number] Acct: [id number] Name: EDMUNDO ALEJANDRA Rep #: [id number] : 1940 77 From: Ruel Brink MD Attending Dr: Birdie Iyer MD Status: DIS IN Ordering Dr: Birdie Iyer MD Date: 12/10/17 Location: [facility] Sex: M C Admitted: 12/08/17 Test Reason [...] Abnormal ECG Confirmed by CUBA NOWAK, RUEL ([id number]), development editor MISAEL HOPE ([id number]) on 12/13/2017 11:36:35 AM Referred By: GOSIA Confirmed By:RUEL BRINK MD 12/13/17 1136 Date Ruel Brink MD CC: Birdie Iyer MD; Kyle Silva MD Signed HEMOGLOBIN A1C Collected: 12/13/2017 Status: F Source: [place] 11:37 AM [facility] REPOSITORY TYPE CODE TESTS RESULT OUT OF RANGE REFERENCE UNITS LAB L501.9985 4.2-6.3 % High HGB A1C 10.0 Performed By: #### L501.9985 #### [facility] [address] [facility] [place], [address] BASIC METABOLIC Collected: 12/13/2017 Status: F Source: [place] PROFILE (B[facility]) 11:37 AM [facility] REPOSITORY TYPE CODE TESTS RESULT OUT OF [...] GAP 7 Performed By: #### L500.2500 #### [facility] [address] [place], [address] PROTHROMBIN TIME W/INR Collected: 12/13/2017 Status: F Source: [place] 11:37 AM [facility] REPOSITORY TYPE CODE TESTS RESULT OUT OF RANGE REFERENCE UNITS LAB L300.4150 11.7-14.9 SECONDS High PROTIME 29.1 LAB L300.4200 Normal INR 2.7 Performed By: #### L300.3900 #### [facility] [address] [place], [address] DISCHARGE SUMMARY Observed: 12/13/2017 Status: F Source: [place] 8:41 AM [facility] REPOSITORY [facility] Medical Records Department [address] [place] [address] Discharge Summary 12/10/17 1145 MR#: [id number] Acct: [id number] Name: EDMUNDO ALEJANDRA Rep #: [id number] : 1940 77 From: Birdie Iyer MD PCP: Ricardo NOWAK,Kyle Mandujano Status: DIS IN Y Location: [place] [address] Discharge Date and Diagnosis Date of Admission: [...] Sidney at discharge?: Yes Done w/ Acute OH measure.: Yes - CHF TUAN/ARB ordered at discharge?: Yes Documented LVEF (%): 35 Code Visit Inpatient E AND M: 98759 Disch Hosp 12/13/17 0841 <Electronically signed by Birdie Iyer MD> Date Birdie Iyer MD Cosigner Signature (if applicable): Date CC: Birdie Iyer MD; Kyle Silva MD Signed 12 LEAD ELECTROCARDIOGRAM Observed: 12/10/2017 Status: F Source: [place] 3:19 PM [facility] REPOSITORY [facility] Cardiovascular Services [address] [place] [address] 12 Lead EKG 12/08/17 0340 MR#: [id number] Acct: [id number] Name: EDMUNDO ALEJANDRA Rep #: [id number] : 1940 77 From: Tong Davis MD Attending Dr: Birdie Iyer MD Status: DIS IN Ordering Dr: Devin Jones MD Date: 12/08/17 Location: [facility] Sex: M C Admitted: 12/08/17 Test Reason [...] consider lateral ischemia Abnormal ECG Confirmed by TONG DAVIS MD ([id number]), development editor MISAEL HOPE ([id number]) on 12/10/2017 3:19:25 PM Referred By: RANDOLPH Confirmed By:TONG DAVIS MD 12/10/17 1519 Date Tong Davis MD CC: Birdie Iyer MD; Devin Jones MD; Kyle Silva MD Signed DISCHARGE INSTRUCTION Observed: 12/10/2017 Status: F Source: [place] 11:45 AM [facility] REPOSITORY [facility] Medical Records Department [address] [place] [address] Instructions for Home/Discharge Instructions 12/10/17 1127 MR#: [id number] Acct: [id number] Name: EDMUNDO ALEJANDRA Rep #: [id number] : 1940 77 From: Birdie Iyer MD PCP: Ricardo NOWAK,Kyle Mandujano Status: ADM IN - Discharge Diagnoses Current [...] 12/10/17 12/10/17 1145 <Electronically signed by Birdie Iyer MD> Date Birdie Iyer MD CC: Rayna Melendez MD; Kyle Silva MD BEDSIDE GLUCOSE Collected: 12/10/2017 Status: F Source: [place] 11:28 AM [facility] REPOSITORY TYPE CODE TESTS RESULT OUT OF REFERENCE UNITS RANGE LAB L501.080 70-110 mg/dL High BEDSIDE GLU 353 Result Comment: MANAGEMENT OF PATIENT CARE PER NURSING PROTOCOL Performed By: #### L501.080 #### [facility] Point of Care [address] [facility] [place] [place] [address] STRESS REPORT Observed: 12/10/2017 Status: F Source: [place] 10:54 AM [facility] REPOSITORY [facility] Cardiovascular Services [address] [place] [address] MR#: [id number] Acct: [id number] Name: EDMUNDO ALEJANDRA Raghavendra Rep #: [id number] : 1940 77 From: Tong Davis MD Primary Care: Kyle Silva MD, Chi Status: ADM IN Ordering Dr: Albert Steen Stress Test Report Pharmacologic myocardial perfusion [...] MD Date Dictated: 12/10/171048 Date Transcribed: 12/10/171048 Video Technician: CO Signed BEDSIDE GLUCOSE Collected: 12/10/2017 Status: F Source: [place] 6:41 [facility] [place] [place] REPOSITORY TYPE CODE TESTS RESULT OUT OF REFERENCE UNITS RANGE LAB L501.080 70-110 mg/dL High BEDSIDE GLU 282 Result Comment: MANAGEMENT OF PATIENT CARE PER NURSING PROTOCOL Performed By: #### L501.080 #### [facility] Point of Care [address] [place] [address] CBC-COMPLETE BLOOD CNT Collected: 12/10/2017 Status: F Source: [place] NO DIFF 5:11 AM [facility] REPOSITORY TYPE CODE TESTS RESULT OUT OF [...] MPV 11.3 Performed By: #### L100.0500 #### [facility] [address] [place], [address] BASIC METABOLIC Collected: 12/10/2017 Status: F Source: [place] PROFILE ([facility]) 5:11 AM [facility] REPOSITORY TYPE CODE TESTS RESULT OUT OF [...] GAP 11 Performed By: #### L500.2500 #### [facility] [address] [place], [address] PROTHROMBIN TIME W/INR Collected: 12/10/2017 Status: F Source: [place] 5:11 AM [facility] REPOSITORY TYPE CODE TESTS RESULT OUT OF RANGE REFERENCE UNITS LAB L300.4150 11.7-14.9 SECONDS High PROTIME 28.1 LAB L300.4200 Normal INR 2.6 Performed By: #### L300.3900 #### [facility] [address] [facility] [facility] [address] BEDSIDE GLUCOSE Collected: 12/09/2017 Status: F Source: [place] 10:29 PM [facility] REPOSITORY TYPE CODE TESTS RESULT OUT OF REFERENCE UNITS RANGE LAB L501.080 70-110 mg/dL High BEDSIDE GLU 315 Result Comment: MANAGEMENT OF PATIENT CARE PER NURSING PROTOCOL Performed By: #### L501.080 #### [facility] Point of Care [address] [facility] [place] [place] [address] BEDSIDE GLUCOSE Collected: 12/09/2017 Status: F Source: [place] 5:26 PM [facility] REPOSITORY TYPE CODE TESTS RESULT OUT OF REFERENCE UNITS RANGE LAB L501.080 70-110 mg/dL High BEDSIDE GLU 256 Result Comment: MANAGEMENT OF PATIENT CARE PER NURSING PROTOCOL Performed By: #### L501.080 #### [facility] Point of Care [address] [place] [address] BEDSIDE GLUCOSE Collected: 12/09/2017 Status: F Source: [place] 11:14 AM [facility] REPOSITORY TYPE CODE TESTS RESULT OUT OF REFERENCE UNITS RANGE LAB L501.080 70-110 mg/dL High BEDSIDE GLU 254 Result Comment: MANAGEMENT OF PATIENT CARE PER NURSING PROTOCOL Performed By: #### L501.080 #### [facility] Point of Care [address] [place] [address] BEDSIDE GLUCOSE Collected: 12/09/2017 Status: F Source: [place] 6:58 AM [facility] REPOSITORY TYPE CODE TESTS RESULT OUT OF REFERENCE UNITS RANGE LAB L501.080 70-110 mg/dL High BEDSIDE GLU 213 Result Comment: MANAGEMENT OF PATIENT CARE PER NURSING PROTOCOL Performed By: #### L501.080 #### [facility] Point of Care [address] [place] [address] CBC W/DIFF, AUTOMATED Collected: 12/09/2017 Status: F Source: [place] 5:12 AM [facility] REPOSITORY TYPE CODE TESTS RESULT OUT OF [...] Lymph 2.02 Performed By: #### L100.0100 #### [facility] [address] [place], [place], [address] PROTHROMBIN TIME W/INR Collected: 12/09/2017 Status: F Source: [place] 5:12 AM [facility] REPOSITORY TYPE CODE TESTS RESULT OUT OF RANGE REFERENCE UNITS LAB L300.4150 11.7-14.9 SECONDS High PROTIME 26.4 LAB L300.4200 Normal INR 2.4 Performed By: #### L300.3900 #### [facility] [address] [place], [address] BASIC METABOLIC Collected: 12/09/2017 Status: F Source: [place] PROFILE (B[facility]) 5:12 AM [facility] REPOSITORY TYPE CODE TESTS RESULT OUT OF [...] 6 Performed By: #### L500.2500, L501.5200 #### [facility] [address] [place], [address] MAGNESIUM Collected: 12/09/2017 Status: F Source: [place] 5:12 AM [facility] REPOSITORY TYPE CODE TESTS RESULT OUT OF RANGE REFERENCE UNITS LAB L501.5200 1.6-2.6 mg/dL Normal MG 1.9 Performed By: #### L500.2500, L501.5200 #### [facility] [address] [place], [address] BEDSIDE GLUCOSE Collected: 12/09/2017 Status: F Source: [place] 12:12 AM [facility] REPOSITORY TYPE CODE TESTS RESULT OUT OF REFERENCE UNITS RANGE LAB L501.080 70-110 mg/dL High BEDSIDE GLU 282 Result Comment: MANAGEMENT OF PATIENT CARE PER NURSING PROTOCOL Performed By: #### L501.080 #### [facility] Point of Care [address] [place] [address] BEDSIDE GLUCOSE Collected: 12/08/2017 Status: F Source: [place] 5:14 PM [facility] REPOSITORY TYPE CODE TESTS RESULT OUT OF REFERENCE UNITS RANGE LAB L501.080 70-110 mg/dL High BEDSIDE GLU 131 Result Comment: MANAGEMENT OF PATIENT CARE PER NURSING PROTOCOL Performed By: #### L501.080 #### [facility] Point of Care [address] [place] [address] ECHOCARDIOGRAM COMPLETE Observed: 12/08/2017 Status: F Source: [place] 1:59 PM [facility] REPOSITORY [facility] Cardiovascular Services [address] [place] [address] Echo Complete 12/08/17 0648 MR#: [id number] Acct: [id number] Name: EDMUNDO ALEJANDRA Rep #: [id number] : 1940 77 From: Rayna Melendez MD Attending Dr: Birdie Iyer MD Status: ADM IN Ordering Dr: Phylicia Rowan MD Date: 12/08/17 Location: [facility] Sex: M C Admitted: 12/08/17 Reason For [...] MD Date Dictated: 12/08/17 0648 Date Transcribed: 12/08/178 Video Technician: Signed BEDSIDE GLUCOSE Collected: 12/08/2017 Status: F Source: [place] 11:47 AM [facility] REPOSITORY TYPE CODE TESTS RESULT OUT OF REFERENCE UNITS RANGE LAB L501.080 70-110 mg/dL High BEDSIDE GLU 140 Result Comment: MANAGEMENT OF PATIENT CARE PER NURSING PROTOCOL Performed By: #### L501.080 #### [facility] Point of Care [address] [place] [address] CONSULTATION Observed: 12/08/2017 Status: F Source: [place] 11:15 AM [facility] REPOSITORY [facility] Medical Records Department [address] [place] [address] Consultation 12/08/17 1102 MR#: [id number] Acct: [id number] Name: EDMUNDO ALEJANDRA Rep #: [id number] : 1940 77 From: Rayna Melendez MD PCP: Kyle Silva MD, Chi Status: ADM IN Location: [place] [address] Reason for Consult Date of Consultation: 12/08/17 [...] % (Auto) 47.3, Lymph % (Auto) 32.7, [place] % (Auto) 14.8 H, Eos % (Auto) [...] Signed TROPONIN-I Collected: 12/08/2017 Status: F Source: [place] 9:52 AM [facility] REPOSITORY Order Comment: 'TROP' Serial specimen #1, #2 or #3: 3 TYPE CODE TESTS RESULT OUT OF RANGE REFERENCE UNITS LAB L501.4010 <0.045 ng/mL High alert 1.220 TROPONIN-I Result Comment: Critical Result(s) Called at: 10:48:02 12/08/2017 by: Yevgeniy Ziegler RN ([facility]). TROPONIN-I EXPECTED VALUES <0.045 Negative 0.045 - 0.590 Consistent with Cardiac Damage > OR = 0.600 Critical Value Not every elevated troponin is indicative of [place]. These values should be used with clinical judgement in examining the patient's clinical picture for diagnosis. To establish a diagnosis of OH versus myocardial injury, there must be a demonstrated rise and/or fall in the troponin values, in addition to ischemic symptoms, EKG changes, new regional wall motion abnormality, and/or angiographical evidence. PLEASE NOTE: REFERENCE RANGES EDITED 17 Performed By: #### L501.4010 #### [facility] [place], [address] TROPONIN-I Collected: 12/08/2017 Status: F Source: [place] 6:49 AM [facility] REPOSITORY Order Comment: 'TROP' Serial specimen #1, #2 or #3: 2 TYPE CODE TESTS RESULT OUT OF RANGE REFERENCE UNITS LAB L501.4010 <0.045 ng/mL High alert 0.766 TROPONIN-I Result Comment: Critical Result(s) Called at: 07:41:17 12/08/2017 by: Yevgeniy Cota RN ([facility]). TROPONIN-I EXPECTED VALUES <0.045 Negative 0.045 - 0.590 Consistent with Cardiac Damage > OR = 0.600 Critical Value Not every elevated troponin is indicative of OH. These values should be used with clinical judgement in examining the patient's clinical picture for diagnosis. To establish a diagnosis of OH versus myocardial injury, there must be a demonstrated rise and/or fall in the troponin values, in addition to ischemic symptoms, EKG changes, new regional wall motion abnormality, and/or angiographical evidence. PLEASE NOTE: REFERENCE RANGES EDITED 17 Performed By: #### L501.4010 #### [facility] [address] [facility] [place] [place], [address] HEMOGLOBIN A1C Collected: 12/08/2017 Status: F Source: [place] 6:49 AM [facility] REPOSITORY TYPE CODE TESTS RESULT OUT OF RANGE REFERENCE UNITS LAB L501.9985 4.2-6.3 % High HGB A1C 9.5 Performed By: #### L501.9985 #### [facility] [address] [facility] [place] [place], [address] LIPID PROFILE Collected: 12/08/2017 Status: F Source: [place] 6:49 AM [facility] REPOSITORY TYPE CODE TESTS RESULT OUT OF [...] 20 Performed By: #### L500.4100, L501.9520 #### [facility] [address] [place], [address] THYROID STIM HORMONE Collected: 12/08/2017 Status: F Source: [place] ([facility]) 6:49 AM [facility] REPOSITORY TYPE CODE TESTS RESULT OUT OF RANGE REFERENCE UNITS LAB L501.9520 0.358-3.74 uIU/mL High TSH 5.78 Performed By: #### L500.4100, L501.9520 #### [facility] [address] [place], [address] FREE T3 Collected: 12/08/2017 Status: F Source: [place] 6:49 AM [facility] REPOSITORY Order Comment: Comments: as add on test TYPE CODE TESTS RESULT OUT OF RANGE REFERENCE UNITS LAB L501.20428 2.18-3.98 pg/mL Normal FREE T3 2.3 Performed By: #### L501.98821, L506.0400 #### [facility] [address] [place], [address] T4 FREE DIRECT Collected: 12/08/2017 Status: F Source: [place] 6:49 AM [facility] REPOSITORY Order Comment: Comments: as add on test TYPE CODE TESTS RESULT OUT OF RANGE REFERENCE UNITS LAB L506.0400 0.76-1.46 ng/dL Normal T4 FREE 1.24 DIRECT Performed By: #### L501.68571, L506.0400 #### [facility] [address], [address] BEDSIDE GLUCOSE Collected: 12/08/2017 Status: F Source: [place] 6:35 AM [facility] REPOSITORY TYPE CODE TESTS RESULT OUT OF REFERENCE UNITS RANGE LAB L501.080 70-110 mg/dL High BEDSIDE GLU 290 Result Comment: MANAGEMENT OF PATIENT CARE PER NURSING PROTOCOL Performed By: #### L501.080 #### [facility] Point of Care [address] [place] [address] HISTORY AND PHYSICAL Observed: 12/08/2017 Status: F Source: [place] EXAM 6:08 AM [facility] REPOSITORY [facility] Medical Records Department [address] [place] [address] History and Physical 12/08/17 0446 MR#: [id number] Acct: [id number] Name: EDMUNDO ALEJANDRA Rep #: [id number] : 1940 77 From: Phylicia Rowan MD PCP: Ricardo NOWAK,Kyle Mandujano Status: ADM IN Y Location: [place] [address] Problem List (1) Chest pain Status: Acute [...] years ago * Does not see a independent living instructor. On aspirin 325 mg daily * Check lipid panel * 7. Afib * Rate controlled * On atenolol 100 mg twice daily. Does not see a independent living instructor in [place]. fib and CAD and managed [...] Patient elects to be DNR CCA. Total rfbs-qp-agdt time 17 minutes. Code Visit Inpatient E AND M: 69121 Init Hosp L3 Procedures: 19153 Advncd Care Plan 30 Min 12/08/17 0608 <Electronically signed by Phylicia Rowan MD> Date Phylicia Rowan MD Cosigner Signature: Date (if applicable) CC: Phylicia Rowan MD; Kyle Silva MD Signed EMERGENCY DEPARTMENT Observed: 12/08/2017 Status: F Source: [place] SUMMARY 5:12 AM [facility] REPOSITORY [facility] Medical Records Department [address] [place] [address] Emergency Department Summary 12/08/17 0443 MR#: [id number] Acct: [id number] Name: EDMUNDO ALEJANDRA Rep #: [id number] : 1940 77 From: Devin Jones MD PCP: Kyle Silva MD, Chi Status: ADM IN - ER Visit Summary [...] years ago. He does not have a independent living instructor. He takes a full aspirin and Coumadin [...] to 145/70 after nitro. Discussed with the independent living instructor Dr. Melendez because the hospitalist. Given the [...] 74 minutes This note was generated with [employer] software. It may contain incorrect words, spelling, [...] your Primary Care Provider. Call [facility] ([phone]) or report to the closest Emergency Room. Call 911 if necessary. 12/08/17 0512 <Electronically signed by Devin Jones MD> Date Devin Jones MD Cosigner Signature (If Indicated): Date CC: Kyle Silva MD CHEST PA AND LATERAL Observed: 12/08/2017 Status: F Source: [place] 3:52 AM [facility] REPOSITORY [facility] Imaging Services [address] [place], [place] [address] [address] Chest PA and Lateral MR#: [id number] Acct: [id number] Name: EDMUNDO ALEJANDRA Rep #: [id number] : 1940 M 77 From: Ruben Patiño MD PCP: Kyle Silva MD, Chi Status: REG ER Study: Chest PA and Lateral Date of Exam: 12/08/17 Exam# [id number] Ordering Dr: Devin Jones MD STUDY: X-RAY [...] CC: Devin Jones MD; Kyle Silva MD Video Technician: Signed CBC W/DIFF, AUTOMATED Collected: 12/08/2017 Status: F Source: [place] 3:45 AM [facility] REPOSITORY TYPE CODE TESTS RESULT OUT OF [...] Lymph 2.78 Performed By: #### L100.0100 #### [facility] [address] [place], [address] BASIC METABOLIC Collected: 12/08/2017 Status: F Source: [place] PROFILE ([facility]) 3:45 AM [facility] REPOSITORY TYPE CODE TESTS RESULT OUT OF [...] Result(s) Called at: 04:19:23 12/08/2017 by: HENRI MIMS LAB L501.5600 3.5-5.1 mmol/L Normal K 4.7 LAB L501.5900 98-107 mmol/L Normal CL 101 LAB L501.6100 21.0-32.0 mmol/L Normal CO2 28.0 LAB L501.6200 5-15 Normal 6 GAP Performed By: #### L500.2500, L501.4010 #### [facility] [address] [place], [address] TROPONIN-I Collected: 12/08/2017 Status: F Source: [place] 3:45 AM [facility] REPOSITORY TYPE CODE TESTS RESULT OUT OF RANGE REFERENCE UNITS LAB L501.4010 <0.045 ng/mL High alert 0.777 TROPONIN-I Result Comment: TROPONIN-I EXPECTED VALUES <0.045 Negative 0.045 - 0.590 Consistent with Cardiac Damage > OR = 0.600 Critical Value Not every elevated troponin is indicative of [place]. These values should be used with clinical judgement in examining the patient's clinical picture for diagnosis. To establish a diagnosis of OH versus myocardial injury, there must be a demonstrated rise and/or fall in the troponin values, in addition to ischemic symptoms, EKG changes, new regional wall motion abnormality, and/or angiographical evidence. PLEASE NOTE: REFERENCE RANGES EDITED 17 Performed By: #### L500.2500, L501.4010 #### [facility] [address] [place], [address] PROTHROMBIN TIME W/INR Collected: 12/08/2017 Status: F Source: [place] 3:45 AM [facility] REPOSITORY TYPE CODE TESTS RESULT OUT OF RANGE REFERENCE UNITS LAB L300.4150 11.7-14.9 SECONDS High PROTIME 22.2 LAB L300.4200 Normal INR 1.9 Performed By: #### L300.3900 #### [facility] [address] [place], [address] BNP,B-TYPE NATRIURETIC Collected: 12/08/2017 Status: F Source: [place] 3:45 AM [facility] REPOSITORY TYPE CODE TESTS RESULT OUT OF RANGE REFERENCE UNITS LAB L503.6620 0-100 pg/mL High B-TYPE 923.7 LIZBETH PEP Performed By: #### L503.6620 #### [facility] [address] [place], [address] ALLERGIES ALLERGIES DATE TYPE / CODE NAME / CODE REACTION SEVERITY SOURCE 02/12/2018 Drug simvastatin/ MUSCLE ACHES Unknown [facility] Allergy/4160 [id number]([facility] [address](SNOMED XNORM) Repository CT) ENCOUNTERS ENCOUNTERS ADMIT/DISCHARGE ACCOUNT NUMBER ADMITTING ENCOUNTER LOCATION SOURCE CLASS 02/15/2018/02/16/20 [id number] Emergency [address] ding:ED Repository 02/12/2018/02/15/20 [id number] SAUD [place], Inpatient ABuilding:[facility] Encounter URoom: Health 0315Bed: A [facility] Repository 02/12/2018/02/13/20 [id number] Emergency [address] ding:ED Repository 02/01/2018 [id number] Ambulatory [facility] ding:POLAB3 Repository 01/24/2018 [id number] Ambulatory [facility] ding:POLAB3 Repository 01/11/2018 [id number] Ambulatory [facility] ding:LAB Repository 01/10/2018 [id number] Ambulatory BMSBuilding: [facility] Repository 01/10/2018/01/11/20 [id number] Agyep[place], Ambulatory [address] ding:PCURoom Repository : [id number]: 1 01/10/2018 [id number] Agyepong, Ambulatory BMSBuilding: [place] [facility] BMS.Critical access hospital Repository 01/10/2018 [id number] Agy[place], Ambulatory BMSBuilding: [place] [facility] BMS.Critical access hospital Repository 01/08/2018 [id number] Ambulatory [facility] ding:POLAB3 Repository 12/27/2017 [id number] Ambulatory [facility] ding:LAB Repository 12/13/2017 [id number] Ambulatory [facility] ding:POLAB3 Repository 12/08/2017/12/11/19 [id number] [facility] ding:PCURoom Repository : [id number]: 1 12/08/2017 [id number] Phylicia Rowan Ambulatory BMSBuilding: [facility] BMS.Critical access hospital Repository 12/08/2017 [id number] Phylicia Rowan Ambulatory BMSBuilding: [facility] BMS.[facility] Repository 12/08/2017 [id number] Phylicia Rowan Ambulatory BMSBuilding: [facility] BMS.[facility] Repository 12/08/2017 [id number] Phylicia Rowan Ambulatory BMSBuilding: [place] [facility] BMS.Critical access hospital Repository 12/08/2017 [id number] Phylicia Rowan Ambulatory BMSBuilding: [place] [facility] BMS.Critical access hospital Repository 12/08/2017/12/11/19 [id number] Ambulatory BMSBuilding: [address] Repository 12/08/2017/12/11/19 [id number] Ambulatory BMSBuilding: [address] Repository PAYERS PAYERS ENCOUNTER GUARANTOR PAYER SUBSCRIBER SOURCE 02/15/2018 EDMUNDO L Primary EDMUNDO L [place] [id number] Insurance:SUMMA CARE DUNCANDOB: Community [place] MEDICAREPolicy [id number] [place] Number: Repository [address]Ieo: (330) [id number] (HP) Date:9963-10-67SR [address] [place] [address]VS: 02/15/2018 Secondary NOT GIVENUNK [place] Insurance:SELF PAY [facility] Number: Effective Repository Date:2018-02-15 02/12/2018 [facility] DUNCANB: [facility] INSBar[facility] Hospitaly Number: [id number] Repository [facility] [id number] [address] [place], [place] Date:2018-02-12 [place], [place] [address]Qpe: 330 [id number] 81865Uwd: () Name:[facility] [address] [place] [address] ()Tel: [phone]: (WP) [phone] 02/12/2018 Secondary [facility] Insurance:MEDICARE DUNCANDOB: [facility] [id number] Repository Number: [address] [id number], [place] Date:2018-02-12 [address]Egx: [phone] [id number] [facility] Code ()Tel: 000 [phone] (WP) [id number], [place] [id number]: 02/12/2018 EDMUNDO L Primary EDMUNDO L [place] [id number] Insurance:[facility] CARE DUNCANDOB: [facility] [place] RDBIG MEDICAREPolicy [id number] [place] Number: Repository [address]Wjk: 330 [id number] (HP) Date:0395-98-40EN [address]US[place], [place] [address]UZ: 02/12/2018 Secondary NOT GIVENUNK [place] Insurance:SELF PAY [facility] Number: Effective Repository Date:2018-02-12 02/01/2018 EDMUNDO L Primary EDMUNDO L [place] [id number] Insurance:[facility] CARE NYDOB: Community [place] MEDICAREPolicy [id number] Valley[place] Number: Repository [address]Omf: (330) [id number] (HP) Date:2582-33-18DR [address] [facility]RET[facility], [place] [address]SC: 02/01/2018 Secondary NOT GIVENUNK [place] Insurance:SELF PAY [facility] Number: Effective Repository Date:2018-02-01 01/24/2018 EDMUNDO L Primary EDMUNDO L [place] [id number] Insurance:SUMMA CARE NYDOB: Community [place] MEDICAREPolicy [id number] [place], [place] Number: Repository [address]Yvk: (330 [id number] (HP) Date:4849-80-72ZR [address] [facility], [place] [address]FK: 01/24/2018 Secondary NOT GIVENUNK [place] Insurance:SELF PAY [facility] Number: Effective Repository Date:2018-01-24 01/11/2018 EDMUNDO L Primary EDMUNDO L [place] [id number] Insurance:SUMMA CARE NYDOB: Community [place] MEDICAREPolicy [id number] [place] Number: Repository [address]Pzb: 330 [id number] (HP) Date:1195-26-48CR [address] [facility] [address]KG: 01/11/2018 Secondary NOT GIVENUNK [place] Insurance:SELF PAY [facility] Number: Effective Repository Date:2018-01-11 01/10/2018 EDMUNDO L Primary EDMUNDO L [place] [id number] Insurance:SUMMA CARE DUNCANDOB: Community [place] MEDICAREPolicy [id number] Valley[place] Number: Repository [address]Xxw: (330) [id number] (HP) Date:5852-29-59OX [address] [facility], [place] [address]HS: 01/10/2018 Secondary NOT GIVENUNK [place] Insurance:SELF PAY [facility] Number: Effective Repository Date:2018-01-10 01/10/2018 EDMUNDO L Primary EDMUNDO L [place] [id number] Insurance:[facility] C[facility] NYDOB: Community [place] MEDICAREPolicy [id number] [place] Number: Repository [address]Xpt: (330) [id number] (HP) Date:5978-26-01PN [address] [place] [address]UM: 01/10/2018 Secondary NOT GIVENUNK [place] Insurance:SELF PAY [facility] Number: Effective Repository Date:2018-01-10 01/10/2018 EDMUNDO L Primary EDMUNDO L [place] [id number] Insurance:[facility] CARE GRADYB: Community [place] MEDICAREPolicy [id number] [place] Number: Repository [address]Avf: (330 [id number] (HP) Date:8663-37-62HK [address] [place] [address]JP: 01/10/2018 Secondary NOT GIVENUNK [place] Insurance:SELF PAY [facility] Number: Effective Repository Date:2018-01-10 01/10/2018 EDMUNDO L Primary EDMUNDO L [place] [id number] Insurance:[facility] CARE NYDOB: Community [place] MEDICAREPolicy [id number] [place], [place] Number: Repository [address]Lub: (330 [id number] (HP) Date:2228-85-05YN [address] [place] [address]AL: 01/10/2018 Secondary NOT GIVENUNK [place] Insurance:SELF PAY [facility] Number: Effective Repository Date:2018-01-10 01/08/2018 EDMUNDO L Primary EDMUNDO L [place] [id number] Insurance:SUMMA CARE DUNCANDOB: Community [place] MEDICAREPolicy [id number] [place], [place] Number: Repository [address]Smt: 330 [id number] () Date:5030-68-31EJ [address] [place] [address]CT: 01/08/2018 Secondary NOT GIVENUNK [place] Insurance:SELF PAY [facility] Number: Effective Repository Date:2018-01-08 12/27/2017 EDMUNDO L Primary EDMUNDO L [place] [id number] Insurance:SUMMA CARE NYDOB: Community [place] MEDICAREPolicy [id number] [place], [place] Number: Repository [address]Jym: (330 [id number] (HP) Date:0624-61-51QN [address] [place] [address] 537[address]HZ: 12/27/2017 Secondary NOT GIVENUNK [place] Insurance:SELF PAY [facility] Number: Effective Repository Date:2017-12-27 12/13/2017 EDMUNDO L Primary EDMUNDO L [place] [id number] Insurance:SUMMA CARE NYDOB: Community [place] MEDICAREPolicy [id number] [place], [place] Number: Repository [address]Qyv: (330) [id number] (HP) Date:6473-50-15SZ [address] [place] [address]WQ: 12/13/2017 Secondary NOT GIVENUNK [place] Insurance:SELF PAY [facility] Number: Effective Repository Date:2017-12-13 12/08/2017 EDMUNDO L Primary EDMUNDO L [place] [id number] Insurance:[facility] CARE DUNCANDOB: Community [place] MEDICAREPolicy [id number] [place], [place] Number: Repository [address]Ech: (330) [id number] (HP) Date:7437-92-66MG [address] [place] [address] 398[address]UV: 12/08/2017 Secondary NOT GIVENUNK [place] Insurance:SELF PAY [facility] Number: Effective Repository Date:2017-12-08 12/08/2017 Edmundo L Primary Edmundo L [place] [id number] Insurance:SUMMA CARE DuncanDOB: [facility] MEDICAREPolic [id number], [place] Number: Repository [address]Cws: (330) [id number] (HP) Date:9852-93-54SF [address] [place] [address] 127[address]KL: 12/08/2017 Secondary NOT GIVENUNK [place] Insurance:SELF PAY [facility] Number: Effective Repository Date:2017-12-08 12/08/2017 Edmundo L Primary Edmundo L [place] [id number] Insurance:SUMMA CARE DuncanDOB: [facility] [address] MEDICAREPolic [id number], [place] Number: Repository [address]Clj: (330 [id number] (HP) Date:0557-46-90RN [address] [place] [address] 999[address]QS: 12/08/2017 Secondary NOT GIVENUNK [place] Insurance:SELF PAY [facility] Number: Effective Repository Date:2017-12-08 12/08/2017 Edmundo L Primary Edmundo L [place] [id number] Insurance:SUMMA CARE DuncanDOB: [facility] MEDICAREPolic [id number], [place] Number: Repository [address]Wap: (330 [id number] (HP) Date:2801-62-05BQ [address] [place] [address]SC: 12/08/2017 Secondary NOT GIVENUNK [place] Insurance:SELF PAY [facility] Number: Effective Repository Date:2017-12-08 12/08/2017 Edmundo L Primary Edmundo L [place] [id number] Insurance:SUMMA CARE GradyB: [facility]AREP[facility] [id number], [place] Number: Repository [address]Mgx: (330) [id number] (HP) Date:4323-58-52FS [address] [facility] [address]TO: 12/08/2017 Secondary NOT GIVENUNK [place] Insurance:SELF PAY [facility] Number: Effective Repository Date:2017-12-08 12/08/2017 EDMUNDO L Primary EDMUNDO L [place] [id number] Insurance:SUMMA CARE GRADYB: [facility]AREP[facility] [id number] [place], [place] Number: Repository [address]Ifs: (330) [id number] (HP) Date:6220-17-19PF [address] [place] [address] 20445BB: 12/08/2017 Secondary NOT GIVENUNK [place] Insurance:SELF PAY [facility] Number: Effective Repository Date:2017-12-08 12/08/2017 EDMUNDO L Primary EDMUNDO L [place] [id number] Insurance:[facility] C[facility] GRADYB: Community [place] MEDICAREPolicy [id number] [place], [place] Number: Repository [address]Asi: (330) [id number] (HP) Date:4821-75-97VK [address] [place] [address] 32781YA: 12/08/2017 Secondary NOT GIVENUNK [place] Insurance:SELF PAY [facility] Number: Effective Repository Date:2017-12-08 12/08/2017 EDMUNDO L Primary EDMUNDO L [place] [id number] Insurance:[facility] C[facility] GRADYB: Community [place] MEDICAREPolicy [id number] [place], [place] Number: Repository [address]Jrh: (330) [id number] (HP) Date:5017-75-01FD [address] [place] [address] 66004BB: 12/08/2017 Secondary NOT GIVENUNK [place] Insurance:SELF PAY [facility] Number: Effective Repository Date:2017-12-08
== END 2018-02-12 06:04 | disposition short-term general hospital (02) ==
LOC: ED 04:25
PROVIDERS: Emergency Provider Emergency Medicine; Family Provider Family Medicine Geriatric Medicine; PCP Family Medicine Geriatric Medicine
DX: I25.110 Atherosclerotic heart disease of native coronary artery with unstable angina pectoris (principal); E11.65 Type 2 diabetes mellitus with hyperglycemia; R07.9 Chest pain, unspecified; I10 Essential (primary) hypertension; I48.2 Chronic atrial fibrillation; Z95.5 Presence of coronary angioplasty implant and graft; Z79.4 Long term (current) use of insulin; Z79.01 Long term (current) use of anticoagulants; Z79.899 Other long term (current) drug therapy
CPT/HCPCS: 71045; 80048; 82962; 84484; 85025; 85610; 93005; 96360; 96372; 99285; J7030; A4216

== ENCOUNTER 2018-02-15 18:17 | Emergency (ER) | payer MEDICARE, SELFPAY ==
[2018-02-12 03:38] VITALS: BMI 29.5
[2018-02-15] MEDS: 0.9% Normal Saline 1,000 ML 999 ML IV (18:17)
[2018-02-15 18:25] VITALS: PULSE 0; RESP 0
--- NOTE | 2018-02-15 20:23 | ED.VISSUMM ---
- ER Visit Summary Date of Service: 02/15/18 Chief Complaint: Cardiac arrest History of Present Illness: The patient is a 77 M who reportedly had a heart cath at [facility] yesterday. 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 states that he does want to lay on the sofa today. He did seem sweaty and short of breath. He did not want to come to the emergency room. Patient's went downstairs to do laundry when she came back upstairs found him unresponsive on the sofa. EMS was called and initiated CPR on arrival. We advised the patient was in asystole with rhythm of PEA just prior to arrival to the emergency room. He had received 4 doses of epinephrine and 2 of bicarb with EMS. Physical Examination: Head and neck examination reveals no sign of trauma. Pupils are fixed with no scleral reflex. He has an ideal supraglottic airway in place. Pulses noted with CPR only. Lung sounds are present bilaterally with bagging. Abdomen is soft with no sign of trauma. Test Results: [] Emergency Department Course and Treatment: CPR was continued. Multiple rounds of ACLS were initiated with 4 additional doses of epinephrine. On final pulse check PEA rhythm was noted with no carotid or femoral pulse. No cardiac activity was noted on bedside ultrasound. Time of was called at 18:24. Family has been updated. Treatment Plan: [] Disposition: Impression: Cardiac arrest This note was generated with [employer] dictation software. It may contain incorrect words, spelling, and punctuation that were not noted in review of the chart prior to signing ED Disposition - Plan for ED Patient: Chief Complaint: CPR Referrals: Kyle Silva Chi, MD [Primary Care Provider] -
--- NOTE | 2018-02-15 20:26 | ED.DCSUM_ITS ---
- ER Visit Summary Date of Service: 02/15/18 Chief Complaint: Cardiac arrest History of Present Illness: The patient is a 77 M who reportedly had a heart cath at [facility] yesterday. 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 states that he does want to lay on the sofa today. He did seem sweaty and short of breath. He did not want to come to the emergency room. Patient's went downstairs to do laundry when she came back upstairs found him unresponsive on the sofa. EMS was called and initiated CPR on arrival. We advised the patient was in asystole with rhythm of PEA just prior to arrival to the emergency room. He had received 4 doses of epinephrine and 2 of bicarb with EMS. Physical Examination: Head and neck examination reveals no sign of trauma. Pupils are fixed with no scleral reflex. He has an ideal supraglottic airway in place. Pulses noted with CPR only. Lung sounds are present bilaterally with bagging. Abdomen is soft with no sign of trauma. Test Results: [] Emergency Department Course and Treatment: CPR was continued. Multiple rounds of ACLS were initiated with 4 additional doses of epinephrine. On final pulse check PEA rhythm was noted with no carotid or femoral pulse. No cardiac activity was noted on bedside ultrasound. Time of was called at 18:24. Family has been updated. Treatment Plan: [] Disposition: Impression: Cardiac arrest This note was generated with [employer] dictation software. It may contain incorrect words, spelling, and punctuation that were not noted in review of the chart prior to signing ED Disposition - Plan for ED Patient: Chief Complaint: CPR Referrals: Kyle Silva Chi, MD [Primary Care Provider] -
== END 2018-02-15 18:25 ==
LOC: ED 18:20
PROVIDERS: Emergency Provider Emergency Medicine; Family Provider Family Medicine Geriatric Medicine; PCP Family Medicine Geriatric Medicine
DX: I46.9 Cardiac arrest, cause unspecified (principal); Z95.5 Presence of coronary angioplasty implant and graft
CPT/HCPCS: 92950; 94770; 99291; J7030; A4216